=== PATIENT | male | born 1935 | race Caucasian/White ===

== ENCOUNTER 2017-11-14 14:54 | Inpatient (IN) | payer MEDICARE ==
[2017-11-14] MEDS ORDERED: SODIUM CHLORIDE 0.9% 1,000 ML IV STA ×2 (16:05)
--- NOTE | 2017-11-14 16:07 | ED ---
General Adult HPI - General Chief complaint: Dizziness Stated complaint: Lightheaded/Vomiting Time Seen by Provider: 11/14/17 15:58 Source: patient, family, RN notes reviewed, old records reviewed Mode of arrival: wheelchair Limitations: no limitations - History of Present Illness Initial comments: This is a 82-year-old male to the ER for evaluation. Patient coming in for evaluation of weakness dizziness, multiple recent falls. Patient has normal normally significant activity level, decreased activity 4 days. No new medications, patient has history of heart disease high blood pressure high cholesterol. Patient denies significant headache at this time. No fevers 2 episodes of nausea the last 2 days with vomiting, no diarrhea. No abdominal pain. No chest pain. No shortness of breath - Related Data Home Medications Medication Instructions Recorded Confirmed Aspirin 81 mg PO DAILY 11/14/17 11/14/17 Budesonide [Pulmicort Flexhaler] 2 puff INHALATION RT-HS 11/14/17 11/14/17 Carvedilol 25 mg PO BID 11/14/17 11/14/17 Hydrochlorothiazide 25 mg PO DAILY 11/14/17 11/14/17 Potassium Chloride [K-Tab ER] 20 meq PO DAILY 11/14/17 11/14/17 Pravastatin Sodium [Pravachol] 80 mg PO DAILY 11/14/17 11/14/17 Rivaroxaban [Xarelto] 20 mg PO DAILY 11/14/17 11/14/17 Tiotropium 18 Mcg/Puff [Spiriva] 1 cap INHALATION RT-DAILY 11/14/17 11/14/17 Valsartan [Diovan] 320 mg PO DAILY 11/14/17 11/14/17 amLODIPine [Norvasc] 10 mg PO DAILY 11/14/17 11/14/17 Allergies Allergy/AdvReac Type Severity Reaction Status Date / Time No Known Allergies Allergy Verified 11/14/17 16:10 Review of Systems ROS Statement: Those systems with pertinent positive or pertinent negative responses have been documented in the HPI. ROS Other: All systems not noted in ROS Statement are negative. Past Medical History Past Medical History: Hyperlipidemia, Hypertension History of Any Multi-Drug Resistant Organisms: None Reported Past Surgical History: Heart Catheterization With Stent Past Psychological History: No Psychological Hx Reported Smoking Status: Never smoker Past Alcohol Use History: None Reported Past Drug Use History: None Reported General Exam Limitations: no limitations General appearance: alert, in no apparent distress Head exam: Present: atraumatic, normocephalic, normal inspection Eye exam: Present: normal appearance, PERRL, EOMI. Absent: scleral icterus, conjunctival injection, periorbital swelling ENT exam: Present: normal exam, mucous membranes moist Neck exam: Present: normal inspection. Absent: tenderness, meningismus, lymphadenopathy Respiratory exam: Present: normal lung sounds bilaterally. Absent: respiratory distress, wheezes, rales, rhonchi, stridor Cardiovascular Exam: Present: regular rate, normal rhythm, normal heart sounds. Absent: systolic murmur, diastolic murmur, rubs, gallop, clicks GI/Abdominal exam: Present: soft, normal bowel sounds. Absent: distended, tenderness, guarding, rebound, rigid Extremities exam: Present: normal inspection, full ROM, normal capillary refill. Absent: tenderness, pedal edema, joint swelling, calf tenderness Back exam: Present: normal inspection Neurological exam: Present: alert, oriented X3, CN II-XII intact Psychiatric exam: Present: normal affect, normal mood Skin exam: Present: warm, dry, intact, normal color. Absent: rash Course Vital Signs 11/14/17 11/14/17 15:11 17:18 Temperature 99.0 F Pulse Rate 79 85 Respiratory 18 16 Rate Blood Pressure 87/39 137/63 O2 Sat by Pulse 100 97 Oximetry - Reevaluation(s) Reevaluation #1: 11/14/17 17:51 Patient denies blood in the stool, no bloody bowel movements here in emergency room, no pain Reevaluation #2: 11/14/17 17:51 Patient continues to feel weak lightheaded and dizzy EKG Findings - EKG Comments: EKG Findings:: G shows normal sinus rhythm rate of 79, CT 152, QRS 82, QTc 426 Medical Decision Making - Medical Decision Making 82 male the ER for evaluation of weakness multiple falls of recent, significant anemia, patient be admitted for transfusion - Lab Data Result diagrams: 11/14/17 16:51 11/14/17 16:51 Lab Results 11/14/17 11/14/17 11/14/17 Range/Units 16:51 16:51 16:51 WBC 6.7 (3.8-10.6) k/uL RBC 1.70 L (4.30-5.90) m/uL Hgb 4.5 L* (13.0-17.5) gm/dL Hct 14.9 L* (39.0-53.0) % MCV 87.8 (80.0-100.0) fL MCH 26.6 (25.0-35.0) pg MCHC 30.3 L (31.0-37.0) g/dL RDW 13.7 (11.5-15.5) % Plt Count 232 (150-450) k/uL Neutrophils % 82 % Lymphocytes % 12 % Monocytes % 4 % Eosinophils % 0 % Basophils % 0 % Neutrophils # 5.5 (1.3-7.7) k/uL Lymphocytes # 0.8 L (1.0-4.8) k/uL Monocytes # 0.3 (0-1.0) k/uL Eosinophils # 0.0 (0-0.7) k/uL Basophils # 0.0 (0-0.2) k/uL Hypochromasia Marked Poikilocytosis Slight PT 12.5 H (9.0-12.0) sec INR 1.3 H (<1.2) APTT 20.2 L (22.0-30.0) sec D-Dimer 0.52 (<0.60) mg/L FEU Sodium 144 (137-145) mmol/L Potassium 3.8 (3.5-5.1) mmol/L Chloride 106 (98-107) mmol/L Carbon Dioxide 27 (22-30) mmol/L Anion Gap 11 mmol/L BUN 47 H (9-20) mg/dL Creatinine 1.30 H (0.66-1.25) mg/dL Est GFR (MDRD) Af Amer >60 (>60 ml/min/1.73 sqM) Est GFR (MDRD) Non-Af 53 (>60 ml/min/1.73 sqM) Glucose 124 H (74-99) mg/dL Plasma Lactic Acid Thor (0.7-2.0) mmol/L Calcium 8.7 (8.4-10.2) mg/dL Phosphorus 3.6 (2.5-4.5) mg/dL Magnesium 2.2 (1.6-2.3) mg/dL Total Bilirubin 0.3 (0.2-1.3) mg/dL AST 20 (17-59) U/L ALT 26 (21-72) U/L Alkaline Phosphatase 48 (38-126) U/L Total Protein 6.0 L (6.3-8.2) g/dL Albumin 3.7 (3.5-5.0) g/dL 11/14/17 Range/Units 16:51 WBC (3.8-10.6) k/uL RBC (4.30-5.90) m/uL Hgb (13.0-17.5) gm/dL Hct (39.0-53.0) % MCV (80.0-100.0) fL MCH (25.0-35.0) pg MCHC (31.0-37.0) g/dL RDW (11.5-15.5) % Plt Count (150-450) k/uL Neutrophils % % Lymphocytes % % Monocytes % % Eosinophils % % Basophils % % Neutrophils # (1.3-7.7) k/uL Lymphocytes # (1.0-4.8) k/uL Monocytes # (0-1.0) k/uL Eosinophils # (0-0.7) k/uL Basophils # (0-0.2) k/uL Hypochromasia Poikilocytosis PT (9.0-12.0) sec INR (<1.2) APTT (22.0-30.0) sec D-Dimer (<0.60) mg/L FEU Sodium (137-145) mmol/L Potassium (3.5-5.1) mmol/L Chloride (98-107) mmol/L Carbon Dioxide (22-30) mmol/L Anion Gap mmol/L BUN (9-20) mg/dL Creatinine (0.66-1.25) mg/dL Est GFR (MDRD) Af Amer (>60 ml/min/1.73 sqM) Est GFR (MDRD) Non-Af (>60 ml/min/1.73 sqM) Glucose (74-99) mg/dL Plasma Lactic Acid Thor 1.6 (0.7-2.0) mmol/L Calcium (8.4-10.2) mg/dL Phosphorus (2.5-4.5) mg/dL Magnesium (1.6-2.3) mg/dL Total Bilirubin (0.2-1.3) mg/dL AST (17-59) U/L ALT (21-72) U/L Alkaline Phosphatase (38-126) U/L Total Protein (6.3-8.2) g/dL Albumin (3.5-5.0) g/dL - Radiology Data Radiology results: report reviewed (CT brain chest x-ray negative for acute disease), image reviewed Disposition Clinical Impression: Weakness, Anemia, Falls Disposition: ADMITTED IP TO THIS [facility] Condition: Fair Referrals: Mike Conde MD [Primary Care Provider] - 1-2 days
[2017-11-14 17:21] LABS: Basophils % (A) 0 %; Eosinophils % (A) 0 %; Hypochromasia Marked; Lymphocytes # (A) 0.8 k/uL (1.0-4.8); Lymphocytes % (A) 12 %; MCH 26.6 pg (25.0-35.0); MCHC 30.3 g/dL (31.0-37.0); MCV 87.8 fL (80.0-100.0); Mean Platelet Volume 7.6; Monocytes # (A) 0.3 k/uL (0-1.0); Monocytes % (A) 4 %; Neutrophils # (A) 5.5 k/uL (1.3-7.7); Neutrophils % (A) 82 %; Platelet Count 232 k/uL (150-450); Poikilocytosis Slight; RDW 13.7 % (11.5-15.5); WBC 6.7 k/uL (3.8-10.6)
[2017-11-14 17:22] LABS: HGB 4.5 gm/dL (13.0-17.5)
[2017-11-14 17:23] LABS: HCT 14.9 % (39.0-53.0)
[2017-11-14 17:26] LABS: ALT 26 U/L (21-72); AST 20 U/L (17-59); Albumin 3.7 g/dL (3.5-5.0); Alkaline Phosphatase 48 U/L (38-126); Anion Gap 11 mmol/L; Blood Urea Nitrogen 47 mg/dL (9-20); Calcium 8.7 mg/dL (8.4-10.2); Carbon Dioxide 27 mmol/L (22-30); Chloride 106 mmol/L (98-107); Glucose 124 mg/dL (74-99); Magnesium 2.2 mg/dL (1.6-2.3); Phosphorus 3.6 mg/dL (2.5-4.5); Potassium 3.8 mmol/L (3.5-5.1); Sodium 144 mmol/L (137-145); Total Bilirubin 0.3 mg/dL (0.2-1.3)
[2017-11-14 17:27] LABS: INR 1.3 (<1.2); Prothrombin Time 12.5 sec (9.0-12.0)
[2017-11-14 17:32] LABS: D-Dimer 0.52 mg/L FEU (<0.60)
[2017-11-14 17:45] LABS: Partial Thromboplastin Time 20.2 sec (22.0-30.0)
[2017-11-14 17:52] LABS: Creatine Kinase MB 1.8 ng/mL (0.0-2.4)
--- NOTE | 2017-11-14 17:53 | CT ---
EXAMINATION TYPE: CT brain damaris henry DATE OF EXAM: 11/14/2017 COMPARISON: NONE HISTORY: Weakness and frequent falls CT DLP: [address] of the brain was performed. The ventricles, basal cisterns and sulci overlying the cerebral convexities demonstrate moderate enla rgement. There is no evidence for intracranial hemorrhage or sulcal effacement. There is decreased attenuatio n about the periventricular white matter and deep white matter of both cerebral hemispheres, compatib le with chronic small vessel ischemia. No mass effects are seen. If symptoms persist consider MRI. Osseous calvarium is intact. IMPRESSION: 1. Age related atrophic and chronic small vessel ischemic change without acute intracranial process seen at this time. CT Cervical Spine: Unenhanced CT of the cervical spine was performed with bone and soft tissue window settings submitted . Coronal and sagittal reconstruction is obtained. Chronic cervical spine malalignment. Degenerative changes noted with disc space narrowing, spondylosi s and degenerative change of the cervical apophyseal joints. No evidence for acute cervical fracture . Biapical scarring. IMPRESSION: 1. No evidence for acute fracture or subluxation of the cervical spine.
[2017-11-14 17:55] LABS: Troponin I 0.45 ng/mL (0.000-0.034)
--- NOTE | 2017-11-14 18:58 | XR ---
EXAMINATION TYPE: XR chest 2V DATE OF EXAM: 11/14/2017 COMPARISON: 10/25/2012 HISTORY: Shortness of breath TECHNIQUE: Frontal and lateral views of the chest are obtained. FINDINGS: Scattered senescent parenchymal changes noted. Hyperinflation compatible with COPD. No evidence for infiltrate. No evidence for atelectasis. Heart size is stable. Mediastinal structures are stable and grossly unremarkable. No evidence for hilar prominence. Degenerative changes dorsal spine. IMPRESSION: 1. No evidence for acute pulmonary disease.
[2017-11-14] MEDS ORDERED: ACETAMINOPHEN TAB 325 MG TAB PO STA (20:06)
[2017-11-14 20:27] LABS: Appearance,Urine Clear (Clear); Bilirubin,Urine Negative (Negative); Blood,Urine Negative (Negative); Color,Urine Light Yellow; Glucose,Urine (UA) Negative (Negative); Ketones,Urine Negative (Negative); Leukocyte Esterase,Urine Negative (Negative); Nitrite,Urine Negative (Negative); Protein,Urine Negative (Negative); Specific Gravity,Urine 1.013 (1.001-1.035); Urobilinogen,Urine <2.0 mg/dL (<2.0)
[2017-11-14 21:17] VITALS: BMI 26.6
[2017-11-15] MEDS ORDERED: HALOPERIDOL LACTATE 5 MG/ML 1 ML VIAL IVP ONE
[2017-11-15] MEDS: CARVEDILOL 12.5 MG TAB PO SCH ×2 (06:06→17:10)
--- NOTE | 2017-11-15 07:39 | XR ---
EXAMINATION TYPE: XR chest 1V DATE OF EXAM: 11/15/2017 CLINICAL HISTORY: Difficulty breathing and CHF progress study. TECHNIQUE: Single AP portable frontal view of the chest is obtained. COMPARISON: Chest x-ray from one day earlier. FINDINGS: There is persisting cardiomegaly with reticular interstitial prominence bilaterally and mo re focal right medial basilar opacity. No large pleural effusion or pneumothorax is seen bilaterally. Osseous structures are demineralized. IMPRESSION: Cardiomegaly and suspected chronic parenchymal changes with developing right medial basil ar atelectasis and/or infiltrate felt present. Correlate clinically.
[2017-11-15] MEDS: IPRATROPIUM 0.5 MG/2.5 ML NEBU INHALATION SCH ×4 (08:20→19:51)
[2017-11-15] MEDS: BUDESONIDE 1 MG/2 ML NEBU INHALATION SCH ×2 (08:20→19:50)
[2017-11-15 08:39] LABS: HCT 21.8 % (39.0-53.0); Hypochromasia Moderate; MCH 28.2 pg (25.0-35.0); MCV 88.4 fL (80.0-100.0); Mean Platelet Volume 7.8; Platelet Count 184 k/uL (150-450); Poikilocytosis Moderate; RBC 2.47 m/uL (4.30-5.90); RDW 13.6 % (11.5-15.5); WBC 7.2 k/uL (3.8-10.6)
[2017-11-15 08:54] LABS: Anion Gap 12 mmol/L; Blood Urea Nitrogen 34 mg/dL (9-20); Calcium 8.5 mg/dL (8.4-10.2); Carbon Dioxide 25 mmol/L (22-30); Chloride 107 mmol/L (98-107); Glucose 145 mg/dL (74-99); Potassium 3.1 mmol/L (3.5-5.1); Sodium 144 mmol/L (137-145)
[2017-11-15] MEDS: PRAVASTATIN SODIUM 80 MG TAB PO SCH (09:55)
[2017-11-15] MEDS ORDERED: Potassium Replacement Protocol 1 EACH MISC MISCELLANE PRN (10:42)
[2017-11-15] MEDS: POTASSIUM CHLORIDE ER 20 MEQ TAB.ER PO SCH ×2 (11:17→12:18)
--- NOTE | 2017-11-15 11:24 | P.CRDCN ---
History of Present Illness Consult date: 11/15/17 Requesting physician: Joanne Humphreys Reason for Consult (text): Abnormal troponin Chief complaint: Weakness History of present illness: This is a pleasant 82-year-old gentleman with known history of coronary artery disease and prior stent placements, hypertension, hyperlipidemia , paroxysmal atrial fibrillation, on Xarelto for anticoagulation, he states that he follows with a social media specialist in the [place] area. According to the patient, in September he noted he had some black stools, decision 70s been getting progressively more and more weak. He denies any overt shortness of breath, denies having any chest discomfort. EKG on admission showed normal sinus rhythm with nonspecific ST-T wave changes. Chest x-ray did not reveal any evidence for acute pulmonary disease. Blood pressure 110/50, heart rate in the 50s, 97% on room air. Laboratory data was reviewed, white blood cell count 6.7, hemoglobin 4.5 on admission, hematocrit 14.9, platelet count 232. Patient did receive blood transfusion, hemoglobin this morning is 7. D-dimer 0.5, sodium 144, potassium 3.1, BUN 34, creatinine 1.1. Creatinine was 1.3 on admission. Mag level 2.2, troponin 0.45,influenza A and B are negative. At the time of my examination this morning, patient states he continues to feel significantly weak, tried to take a shower this morning and had to hold himself up against the wall. He also states that recently he underwent an EGD and colonoscopy at the [place] system. We will attempt to get records of this and also request a consult with GI service if okay with the primary. Past Medical History Past Medical History: Atrial Fibrillation, Hyperlipidemia, Hypertension History of Any Multi-Drug Resistant Organisms: None Reported Past Surgical History: Heart Catheterization With Stent Date of Last Stent Placement:: 2014 Past Psychological History: No Psychological Hx Reported Smoking Status: Never smoker Past Alcohol Use History: None Reported Past Drug Use History: None Reported - Past Family History Father History Unknown: Yes Mother Family Medical History: Myocardial Infarction ([place]) Brother(s) Additional Family Medical History / Comment(s): heart problems Medications and Allergies Home Medications Medication Instructions Recorded Confirmed Type Aspirin 81 mg PO DAILY 11/14/17 11/14/17 History Budesonide [Pulmicort Flexhaler] 2 puff INHALATION RT-HS 11/14/17 11/14/17 History Carvedilol 25 mg PO BID 11/14/17 11/14/17 History Hydrochlorothiazide 25 mg PO DAILY 11/14/17 11/14/17 History Potassium Chloride [K-Tab ER] 20 meq PO DAILY 11/14/17 11/14/17 History Pravastatin Sodium [Pravachol] 80 mg PO DAILY 11/14/17 11/14/17 History Rivaroxaban [Xarelto] 20 mg PO DAILY 11/14/17 11/14/17 History Tiotropium 18 Mcg/Puff [Spiriva] 1 cap INHALATION RT-DAILY 11/14/17 11/14/17 History Valsartan [Diovan] 320 mg PO DAILY 11/14/17 11/14/17 History amLODIPine [Norvasc] 10 mg PO DAILY 11/14/17 11/14/17 History Allergies Allergy/AdvReac Type Severity Reaction Status Date / Time No Known Allergies Allergy Verified 11/14/17 16:10 Physical Exam Vitals: Vital Signs Temp Pulse Pulse Resp BP BP Pulse Ox 11/15/17 09:45 97.5 F L 75 18 110/52 97 11/15/17 08:34 76 11/15/17 08:21 76 11/15/17 07:05 99.0 F 73 17 115/65 93 L 11/15/17 04:36 98.9 F 85 16 121/63 93 L 11/15/17 04:06 98.8 F 81 16 124/62 91 L 11/15/17 04:00 98.5 F 85 16 124/75 93 L 11/15/17 03:56 98.5 F 85 16 124/75 93 L 11/15/17 00:59 98.9 F 83 18 124/72 94 L 11/14/17 22:46 98.8 F 82 18 115/58 95 11/14/17 22:16 99.3 F 85 18 120/65 99 11/14/17 22:06 98.6 F 86 18 126/66 96 11/14/17 21:29 99.0 F 94 18 123/61 100 11/14/17 21:05 99.0 F 94 18 123/61 100 11/14/17 20:29 100.3 F H 85 18 134/65 11/14/17 19:59 100.1 F H 90 18 147/67 11/14/17 19:49 99.9 F H 94 18 147/65 97 11/14/17 19:04 100.1 F H 96 18 118/57 96 11/14/17 17:18 85 16 137/63 97 11/14/17 15:11 99.0 F 79 18 87/39 100 Intake and Output 11/14/17 11/15/17 11/15/17 22:59 06:59 14:59 Intake Total 310 510 550 Balance 310 510 550 Intake: IV 200 Sodium Chloride 0.9% 1, 200 000 ml @ 100 mls/hr IV . Q10H STA Rx#:[id number] Oral 240 Blood Product 310 310 310 Rc As-1 Unit 0 310 [id number] Rc Pheresis 2 As3 Unit 0 310 [id number] Rc Pheresis As-3 Unit 310 [id number] Other: Voiding Method Urinal Weight 72.575 kg 72.5 kg PHYSICAL EXAMINATION: HEENT: Head is atraumatic, normocephalic. Pupils equal, round. Neck is supple. There is no elevated jugular venous pressure. HEART EXAMINATION: Heart S1, S2 normal. No murmur or gallop heard. CHEST EXAMINATION: Lungs are clear to auscultation and precussion. No chest wall tenderness is noted on palpation or with deep breathing. ABDOMEN: Soft, nontender. Bowel sounds are heard. No organomegaly noted]. EXTREMITIES:[ 2+ peripheral pulses with no evidence of peripheral edema and no calf tenderness noted]. NEUROLOGIC [patient is awake, alert and oriented -3.] . Results 11/15/17 08:06 11/15/17 08:06 Cardiac Enzymes 11/14/17 11/14/17 Range/Units 16:51 16:51 AST 20 (17-59) U/L CK-MB (CK-2) 1.8 (0.0-2.4) ng/mL Troponin I 0.450 H* (0.000-0.034) ng/mL Coagulation 11/14/17 Range/Units 16:51 PT 12.5 H (9.0-12.0) sec APTT 20.2 L (22.0-30.0) sec CBC 11/14/17 11/15/17 Range/Units 16:51 08:06 WBC 6.7 7.2 (3.8-10.6) k/uL RBC 1.70 L 2.47 L (4.30-5.90) m/uL Hgb 4.5 L* 7.0 L* D (13.0-17.5) gm/dL Hct 14.9 L* 21.8 L (39.0-53.0) % Plt Count 232 184 (150-450) k/uL Comprehensive Metabolic Panel 11/14/17 11/15/17 Range/Units 16:51 08:06 Sodium 144 144 (137-145) mmol/L Potassium 3.8 3.1 L (3.5-5.1) mmol/L Chloride 106 107 (98-107) mmol/L Carbon Dioxide 27 25 (22-30) mmol/L BUN 47 H 34 H (9-20) mg/dL Creatinine 1.30 H 1.14 (0.66-1.25) mg/dL Glucose 124 H 145 H (74-99) mg/dL Calcium 8.7 8.5 (8.4-10.2) mg/dL AST 20 (17-59) U/L ALT 26 (21-72) U/L Alkaline Phosphatase 48 (38-126) U/L Total Protein 6.0 L (6.3-8.2) g/dL Albumin 3.7 (3.5-5.0) g/dL Current Medications Generic Name Dose Route Start Last Admin Trade Name Freq PRN Reason Stop Dose Admin Budesonide 1 mg 11/15/17 20:00 11/15/17 08:20 Pulmicort INHALATION 1 mg RT-BID RIRI Administration Carvedilol 25 mg 11/15/17 07:30 11/15/17 06:06 Coreg PO 25 mg BID-W/MEALS RIRI Administration Ipratropium Alfred 0.5 mg 11/15/17 08:00 11/15/17 08:20 Atrovent Nebulized INHALATION 0.5 mg RT-QID RIRI Administration Miscellaneous Information 1 each 11/15/17 10:42 Potassium Per Protocol MISCELLANE DAILY PRN Per Protocol Protocol Potassium Chloride 20 meq 11/15/17 11:00 K-Dur 20 PO 11/15/17 12:01 Q1HR RIRI Pravastatin Sodium 80 mg 11/15/17 09:00 11/15/17 09:55 Pravachol PO 80 mg DAILY RIRI Administration Intake and Output 11/14/17 11/15/17 11/15/17 22:59 06:59 14:59 Intake Total 310 510 550 Balance 310 510 550 Intake: IV 200 Sodium Chloride 0.9% 1, 200 000 ml @ 100 mls/hr IV . Q10H STA Rx#:[id number] Oral 240 Blood Product 310 310 310 Rc As-1 Unit 0 310 [id number] Rc Pheresis 2 As3 Unit 0 310 [id number] Rc Pheresis As-3 Unit 310 [id number] Other: Voiding Method Urinal Weight 72.575 kg 72.5 kg 11/15/17 08:06 11/15/17 08:06 EKG Interpretations (text) EKG shows normal sinus rhythm with nonspecific ST-T wave changes Assessment and Plan Plan: Assessment and plan #1 symptoms of progressive weakness, evidence of severe anemia, hemoglobin on admission 4.5, 7.0 this morning. #2 known history of coronary artery disease with prior stent placements, most recent was in 2014. Both of these procedures were done at [facility] #3 hypertension #4 hyperlipidemia #5 mild abnormality and creatinine, normalized this morning at 1.1. Be secondary to anemia. #6 abnormal troponin, patient denies any chest discomfort or shortness of breath. We will get 2 subsequent troponins. #7 paroxysmal atrial fibrillation on Xarelto for anticoagulation. Plan We will obtain an echocardiogram with Doppler study. Patient was on dual blood thinners in the form of aspirin and xarelto. Both these have been currently placed on hold. He continues to be on Coreg, pravastatin. We will obtain 2 subsequent troponins. Suggest GI workup. DNP note has been reviewed, I agree with a documented findings and plan of care. Patient was seen and examined.
--- NOTE | 2017-11-15 14:23 | P.HPIM ---
History of Present Illness 82-year-old gentleman with history of coronary artery disease atrial fibrillation on Xarelto came in with complaints of severe fatigue syncopal episode lightheadedness found to have found to be anemic with the hemoglobin of 4.1 when questioned patient the was having on and off dark stools going on since her October 19, patient additionally is found have elevated troponins although denied any chest pain denied any nausea vomiting. Patient denied any abdominal pain. Patient's baseline creatinine is unknown but his creatinine is elevated to 1.3 patient received 4 units of blood transfusion is getting IV fluids at 100 mL/h patient does not does have fever did not have any cough chest x-ray is essentially within normal limits patient does not have any UTI- like symptoms urine did not show any significant abnormality. Patient is not on anti-medics at this point of time although urine cultures and blood cultures were obtained. Review of Systems REVIEW OF SYSTEMS: CONSTITUTIONAL: As mentioned in HPI HEENT: No recent visual problems or hearing problems. Denied any sore throat. CARDIOVASCULAR: No chest pain, orthopnea, PND, no palpitations, no syncope. PULMONARY: No shortness of breath, no cough, no hemoptysis. GASTROINTESTINAL: No diarrhea, no nausea, no vomiting, no abdominal pain. Normoactive bowel sounds. NEUROLOGICAL: No headaches, no weakness, no numbness. HEMATOLOGICAL: Denies any bleeding or petechiae. GENITOURINARY: Denies any burning micturition, frequency, or urgency. MUSCULOSKELETAL/RHEUMATOLOGICAL: Denies any joint pain, swelling, or any muscle pain. ENDOCRINE: Denies any polyuria or polydipsia. The rest of the 14-point review of systems is negative. Past Medical History Past Medical History: Atrial Fibrillation, Hyperlipidemia, Hypertension History of Any Multi-Drug Resistant Organisms: None Reported Past Surgical History: Heart Catheterization With Stent Date of Last Stent Placement:: 2014 Past Psychological History: No Psychological Hx Reported Smoking Status: Never smoker Past Alcohol Use History: None Reported Past Drug Use History: None Reported - Past Family History Father History Unknown: Yes Mother Family Medical History: Myocardial Infarction ([place]) Brother(s) Additional Family Medical History / Comment(s): heart problems Medications and Allergies Home Medications Medication Instructions Recorded Confirmed Type Aspirin 81 mg PO DAILY 11/14/17 11/14/17 History Budesonide [Pulmicort Flexhaler] 2 puff INHALATION RT-HS 11/14/17 11/14/17 History Carvedilol 25 mg PO BID 11/14/17 11/14/17 History Hydrochlorothiazide 25 mg PO DAILY 11/14/17 11/14/17 History Potassium Chloride [K-Tab ER] 20 meq PO DAILY 11/14/17 11/14/17 History Pravastatin Sodium [Pravachol] 80 mg PO DAILY 11/14/17 11/14/17 History Rivaroxaban [Xarelto] 20 mg PO DAILY 11/14/17 11/14/17 History Tiotropium 18 Mcg/Puff [Spiriva] 1 cap INHALATION RT-DAILY 11/14/17 11/14/17 History Valsartan [Diovan] 320 mg PO DAILY 11/14/17 11/14/17 History amLODIPine [Norvasc] 10 mg PO DAILY 11/14/17 11/14/17 History Allergies Allergy/AdvReac Type Severity Reaction Status Date / Time No Known Allergies Allergy Verified 11/14/17 16:10 Physical Exam Vitals: Vital Signs Temp Pulse Pulse Resp BP BP Pulse Ox 11/15/17 11:20 99.1 F 75 18 124/65 98 11/15/17 11:10 98.0 F 74 76 18 117/66 117/66 97 11/15/17 09:45 97.5 F L 75 18 110/52 97 11/15/17 08:34 76 11/15/17 08:21 76 11/15/17 07:05 99.0 F 73 17 115/65 93 L 11/15/17 04:36 98.9 F 85 16 121/63 93 L 11/15/17 04:06 98.8 F 81 16 124/62 91 L 11/15/17 04:00 98.5 F 85 16 124/75 93 L 11/15/17 03:56 98.5 F 85 16 124/75 93 L 11/15/17 00:59 98.9 F 83 18 124/72 94 L 11/14/17 22:46 98.8 F 82 18 115/58 95 11/14/17 22:16 99.3 F 85 18 120/65 99 11/14/17 22:06 98.6 F 86 18 126/66 96 11/14/17 21:29 99.0 F 94 18 123/61 100 11/14/17 21:05 99.0 F 94 18 123/61 100 11/14/17 20:29 100.3 F H 85 18 134/65 11/14/17 19:59 100.1 F H 90 18 147/67 11/14/17 19:49 99.9 F H 94 18 147/65 97 11/14/17 19:04 100.1 F H 96 18 118/57 96 11/14/17 17:18 85 16 137/63 97 11/14/17 15:11 99.0 F 79 18 87/39 100 Intake and Output 11/14/17 11/15/17 11/15/17 22:59 06:59 14:59 Intake Total 310 510 550 Balance 310 510 550 Intake: IV 200 Sodium Chloride 0.9% 1, 200 000 ml @ 100 mls/hr IV . Q10H STA Rx#:[id number] Oral 240 Blood Product 310 310 310 Rc As-1 Unit 0 310 [id number] Rc As-1 Unit 0 [id number] Rc Pheresis 2 As3 Unit 0 310 [id number] Rc Pheresis As-3 Unit 310 [id number] Other: Voiding Method Urinal Weight 72.575 kg 72.5 kg PHYSICAL EXAMINATION: GENERAL: The patient is alert and oriented x3, not in any acute distress. Well developed, well nourished. HEENT: Pupils are round and equally reacting to light. EOMI. No scleral icterus. No conjunctival pallor. Normocephalic, atraumatic. No pharyngeal erythema. No thyromegaly. CARDIOVASCULAR: S1 and S2 present. No murmurs, rubs, or gallops. PULMONARY: Chest is clear to auscultation, no wheezing or crackles. ABDOMEN: Soft, nontender, nondistended, normoactive bowel sounds. No palpable organomegaly. MUSCULOSKELETAL: No joint swelling or deformity. EXTREMITIES: No cyanosis, clubbing, or pedal edema. NEUROLOGICAL: Gross neurological examination did not reveal any focal deficits. SKIN: No rashes. Results CBC & Chem 7: 11/15/17 08:06 11/15/17 08:06 Labs: Abnormal Lab Results - Last 24 Hours (Table) 11/14/17 11/14/17 11/14/17 Range/Units 16:51 16:51 16:51 RBC 1.70 L (4.30-5.90) m/uL Hgb 4.5 L* (13.0-17.5) gm/dL Hct 14.9 L* (39.0-53.0) % MCHC 30.3 L (31.0-37.0) g/dL Lymphocytes # 0.8 L (1.0-4.8) k/uL PT (9.0-12.0) sec INR (<1.2) APTT (22.0-30.0) sec Potassium (3.5-5.1) mmol/L BUN 47 H (9-20) mg/dL Creatinine 1.30 H (0.66-1.25) mg/dL Glucose 124 H (74-99) mg/dL Troponin I 0.450 H* (0.000-0.034) ng/mL Total Protein 6.0 L (6.3-8.2) g/dL Crossmatch 11/14/17 11/14/17 11/15/17 Range/Units 16:51 16:51 08:06 RBC 2.47 L (4.30-5.90) m/uL Hgb 7.0 L* D (13.0-17.5) gm/dL Hct 21.8 L (39.0-53.0) % MCHC (31.0-37.0) g/dL Lymphocytes # (1.0-4.8) k/uL PT 12.5 H (9.0-12.0) sec INR 1.3 H (<1.2) APTT 20.2 L (22.0-30.0) sec Potassium (3.5-5.1) mmol/L BUN (9-20) mg/dL Creatinine (0.66-1.25) mg/dL Glucose (74-99) mg/dL Troponin I (0.000-0.034) ng/mL Total Protein (6.3-8.2) g/dL Crossmatch See Detail 11/15/17 11/15/17 Range/Units 08:06 08:06 RBC (4.30-5.90) m/uL Hgb (13.0-17.5) gm/dL Hct (39.0-53.0) % MCHC (31.0-37.0) g/dL Lymphocytes # (1.0-4.8) k/uL PT (9.0-12.0) sec INR (<1.2) APTT (22.0-30.0) sec Potassium 3.1 L (3.5-5.1) mmol/L BUN 34 H (9-20) mg/dL Creatinine (0.66-1.25) mg/dL Glucose 145 H (74-99) mg/dL Troponin I 0.277 H* (0.000-0.034) ng/mL Total Protein (6.3-8.2) g/dL Crossmatch Microbiology - Last 24 Hours (Table) 11/14/17 20:12 Urine Culture - Preliminary Urine,Clean Catch Thrombosis Risk Factor Assmnt - Choose All That Apply Other Risk Factors: Yes Each Risk Factor Represents 3 Points: Age 75 years or older Thrombosis Risk Factor Assessment Total Risk Factor Score: 3 Thrombosis Risk Factor Assessment Level: Moderate Risk Assessment and Plan Plan: -Fatigue, syncope: Secondary to upper GI bleed most probably from peptic ulcer disease gastroneurology will be consulted. Patient does have acute on chronic GI bleed. Patient will be started on Protonix received 4 units of blood transfusion. -Non-ST elevation myocardial infarction: Type II from anemia no further intervention from cardiology perspective patient is on Coreg which will be continued echocardiogram will be obtained. -Acute renal dysfunction: Secondary to intravascular depletion from anemia upper GI bleed continue with IV fluids recheck the x-ray tomorrow. -Hyperlipidemia -History of atrial fibrillation presently rate controlled on anticoagulation which is being held presently because of GI bleed -Low-grade fever without any signs or symptoms of infection monitor without any antibiotics await the culture blood cultures and urine cultures
[2017-11-15] MEDS: PANTOPRAZOLE 40 MG/10 ML VIAL IVP SCH ×2 (15:21→20:49)
--- NOTE | 2017-11-15 16:46 | ECHOF ---
Referral Reason:abn trop MEASUREMENTS -------- HEIGHT: 165.1 cm WEIGHT: 72.1 kg BP: 117/66 RVIDd: 3.6 cm (< 3.3) IVSd: 1.2 cm (0.6 - 1.1) LVIDd: 3.9 cm (3.9 - 5.3) LVPWd: 1.1 cm (0.6 - 1.1) IVSs: 1.6 cm LVIDs: 2.4 cm LVPWs: 1.7 cm LAESV Index (A-L): 39.18 ml/m Ao Diam: 3.8 cm (2.0 - 3.7) AV Cusp: 0.8 cm (1.5 - 2.6) LA Diam: 3.8 cm (2.7 - 3.8) MV E Tom: 1.45 m/s MV DecT: 346 ms MV A Tom: 0.96 m/s MV E/A Ratio: 1.51 AV maxP.35 mmHg AV meanP.31 mmHg RAP: 5.00 mmHg RVSP: 47.75 mmHg FINDINGS -------- Sinus rhythm. This was a technically adequate study. The left ventricular size is normal. There is mild concentric left ventricular hypertrophy. Overa ll left ventricular systolic function is normal with, an EF between 55 - 60 %. The right ventricle is mildly enlarged. The right ventricular systolic function is normal. LA is moderately dilated 34-39 ml/m2 The right atrium is normal in size. Aortic valve is trileaflet and is severely thickened. There is mild aortic regurgitation. There i s moderate aortic stenosis present. Peak/mean gradient across the Aortic Valve is 42.35mmHg / 24.31 mmHg. Moderate mitral annular calcification present. Moderate mitral regurgitation is present. The pea k and mean MV gradients are 19.08mmHg 4.82mmHg as measured by doppler. Cwmm-ux-gayikolb mitral sten osis. Ixxe-hf-ahxgjfzs tricuspid regurgitation present. There is mild to moderate pulmonary hypertension. The right ventricular systolic pressure, as measured by Doppler, is 47.75mmHg. Trace/mild (physiologic) pulmonic regurgitation. The aortic root size is normal. Normal inferior vena cava with normal inspiratory collapse consistent with estimated right atrial pre ssure of 5 mmHg. There is no pericardial effusion. CONCLUSIONS -------- 1. Sinus rhythm. 2. This was a technically adequate study. 3. The left ventricular size is normal. 4. There is mild concentric left ventricular hypertrophy. 5. Overall left ventricular systolic function is normal with, an EF between 55 - 60 %. 6. The right ventricle is mildly enlarged. 7. LA is moderately dilated 34-39 ml/m2 8. Aortic valve is trileaflet and is severely thickened. 9. There is mild aortic regurgitation. 10. There is moderate aortic stenosis present. 11. Peak/mean gradient across the Aortic Valve is 42.35mmHg / 24.31mmHg. 12. Moderate mitral annular calcification present. 13. Moderate mitral regurgitation is present. 14. The peak and mean MV gradients are 19.08mmHg 4.82mmHg as measured by doppler. 15. Mxmc-ef-ndshwarv mitral stenosis. 16. Kreo-iw-asjajmqx tricuspid regurgitation present. 17. There is mild to moderate pulmonary hypertension. 18. Trace/mild (physiologic) pulmonic regurgitation. 19. The aortic root size is normal. 20. There is no pericardial effusion. SERVICE ADMINISTRATOR: Keon Morales RDCS
[2017-11-15 21:05] LABS: HCT 24.1 % (39.0-53.0); HGB 7.8 gm/dL (13.0-17.5); Hypochromasia Moderate; MCH 28.2 pg (25.0-35.0); MCHC 32.5 g/dL (31.0-37.0); MCV 86.9 fL (80.0-100.0); Mean Platelet Volume 8.2; Platelet Count 186 k/uL (150-450); Poikilocytosis Marked; RBC 2.77 m/uL (4.30-5.90); WBC 10.5 k/uL (3.8-10.6)
[2017-11-15] MEDS: ACETAMINOPHEN TAB 325 MG TAB PO PRN (23:27)
[2017-11-15] MEDS ORDERED: HALOPERIDOL LACTATE 5 MG/ML 1 ML VIAL IVP PRN (23:57)
[2017-11-16] MEDS ORDERED: ACETAMINOPHEN IV (For NPO) 1,000 MG in EMPTY BAG 1 BAG IVPB PRN (05:22)
[2017-11-16] MEDS ORDERED: FUROSEMIDE 10 MG/ML 4 ML VIAL IV STA (05:22)
[2017-11-16] MEDS ORDERED: FUROSEMIDE 10 MG/ML 4 ML VIAL ONE (05:26)
[2017-11-16 06:37] LABS: HCT 27.5 % (39.0-53.0); HGB 8.7 gm/dL (13.0-17.5); Hypochromasia Moderate; MCH 28.3 pg (25.0-35.0); MCHC 31.5 g/dL (31.0-37.0); MCV 89.8 fL (80.0-100.0); Mean Platelet Volume 8.6; Platelet Count 184 k/uL (150-450); Poikilocytosis Moderate; RBC 3.06 m/uL (4.30-5.90); RDW 14.4 % (11.5-15.5); WBC 10.5 k/uL (3.8-10.6)
[2017-11-16 06:53] LABS: Anion Gap 8 mmol/L; Blood Urea Nitrogen 25 mg/dL (9-20); Calcium 8.5 mg/dL (8.4-10.2); Carbon Dioxide 28 mmol/L (22-30); Chloride 105 mmol/L (98-107); Potassium 3.4 mmol/L (3.5-5.1); Sodium 141 mmol/L (137-145)
[2017-11-16] MEDS ORDERED: Potassium Replacement Protocol 1 EACH MISC MISCELLANE PRN (06:58)
[2017-11-16 07:00] LABS: Glucose 103 mg/dL (74-99)
--- NOTE | 2017-11-16 07:31 | XR ---
EXAMINATION TYPE: XR chest 1V DATE OF EXAM: 11/16/2017 COMPARISON: NONE INDICATION: Congestive heart failure TECHNIQUE: Single frontal view of the chest is obtained. FINDINGS: The heart size is normal. The pulmonary vasculature is normal. There is a minimal infiltrate at the cardiac apex. Correlate for atelectasis or pneumonia. Right basilar infiltrate has improved. IMPRESSION: 1. Minimal infiltrate within the lingula at the cardiac apex. Correlate for atelectasis and pneumonia .
[2017-11-16] MEDS: CARVEDILOL 12.5 MG TAB PO SCH ×2 (08:31→17:27)
[2017-11-16] MEDS: POTASSIUM CHLORIDE 10 MEQ in WATER FOR INJECTION 1 100ML.BAG IVPB SCH ×2 (08:57→12:41)
[2017-11-16] MEDS: PRAVASTATIN SODIUM 80 MG TAB PO SCH (09:04)
[2017-11-16] MEDS: BUDESONIDE 1 MG/2 ML NEBU INHALATION SCH ×2 (09:12→19:22)
[2017-11-16] MEDS: IPRATROPIUM 0.5 MG/2.5 ML NEBU INHALATION SCH ×4 (09:13→19:21)
[2017-11-16] MEDS: PANTOPRAZOLE 40 MG/10 ML VIAL IVP SCH ×2 (09:20→22:30)
--- NOTE | 2017-11-16 11:22 | CONS ---
CONSULTATION DATE OF SERVICE: 11/15/2017 REASON FOR CONSULTATION: Severe symptomatic anemia. HISTORY OF PRESENT ILLNESS: The patient is an 82-year-old male with history of coronary artery disease and A. Fib, presently on Xarelto for the last 2 years duration, was admitted to hospital because of fatigue, weakness, syncopal episode and came in to the emergency room and was noted to have a hemoglobin of 4.1 g/dL. The patient denies any obvious GI bleed. He had some dark stools, but no black tarry stools. He denies any abdominal pain. No nausea, vomiting. No rectal bleeding. He has been on Xarelto for A. Fib for the last 2 years duration. About a year ago, he stated that he had an upper endoscopy done because of anemia and it was unremarkable and this was done in [facility]. He recalls having a colonoscopy several years ago. He received 4 units of blood transfusion and the last hemoglobin was 7.5 g/dL. He denies any recent NSAID use. No prior history of peptic ulcer disease. PAST MEDICAL HISTORY: Significant for coronary artery disease, congestive heart failure, history of A. Fib, hyperlipidemia, hypertension. PAST SURGICAL HISTORY: Cardiac cath and stent placement 2 years ago. MEDICATIONS: Medications at home include aspirin, budesonide, carvedilol, hydrochlorothiazide, potassium chloride, Pravachol, Xarelto, Diovan, Norvasc, Spiriva. ALLERGIES: No known drug allergies. SOCIAL HISTORY: No smoking. No alcohol use. FAMILY HISTORY: Mother had [place]. Brother has coronary artery disease. REVIEW OF SYSTEMS: CARDIOPULMONARY: No chest pain, shortness of breath. GENITOURINARY: No dysuria or hematuria. MUSCULOSKELETAL: Unremarkable. SKIN: Unremarkable. ENDOCRINE: Unremarkable. PSYCHIATRY: Unremarkable. NEUROLOGY: Unremarkable. ENT/VISION: Unremarkable. CONSTITUTIONAL: No recent weight loss. No fever, chills or night sweats. PHYSICAL EXAMINATION: On physical examination, appears comfortable, in no apparent distress. Vital signs are stable. Blood pressure is 129/68, pulse is 76, temperature 100.7. HEENT EXAMINATION: Unremarkable. Conjunctivae pink. Sclerae anicteric. Oral cavity, no lesions. NECK: No JVD or lymph node enlargement. Chest was clear to auscultation. HEART: Regular rate and rhythm. ABDOMEN: Soft, nontender, nondistended. Bowel sounds are positive. No organomegaly. EXTREMITIES: No pedal edema. SKIN: No rashes. NEURO: Alert and oriented x3. No focal deficits. LABS: Labs at the time of admission, WBC 6.7, hemoglobin 4.5, platelets 232, MCV is normal. INR is 1.3. BUN 47, creatinine 1.30. ALT, AST, T-bilirubin and alkaline phosphatase are within normal limits. Troponin was 0.045. IMPRESSION: 1. This patient was admitted to the hospital with severe symptomatic anemia and hemoglobin of 4.5. Clinically no evidence of active ongoing bleeding. He did have some dark stool, but no evidence of melena. His hemoglobin was 4.5, received 4 units of blood transfusion and the last hemoglobin was 7.5 g/dL. 2. History of atrial fibrillation on Xarelto, presently on hold since yesterday. 3. Slightly elevated troponins. Cardiology following the patient closely. RECOMMENDATIONS: Continue to hold anticoagulants. Will proceed with GI workup including upper endoscopy and colonoscopy tomorrow. I discussed with the patient his benefits and complications and he is agreeable to it. Thank you for this consultation. MMODL / IJN: [id number] /
--- NOTE | 2017-11-16 14:51 | CDI ---
Last Revision, September 2017 Documentation Clarification Form Date: 11/16/2017 2:26:00 PM From: Trisha Burris RN, CCDS Admit Date: 11/14/2017 5:48:00 PM Patient Name: Cornelio Rodriguez Visit Number: [id number] Discharge Date: ATTENTION: The Clinical Documentation Specialists (CDI) and [facility] Coding Staff appreciate your assistance in clarifying documentation. Please respond to the clarification below the line at the bottom and electronically sign. The CDI & [facility] Coding staff will review the response and follow-up if needed. Please note: Queries are made part of the Legal Health Record. If you have any questions, please contact the author of this message via ITS. Dr. Gabi Toledo Acute renal dysfunction was documented in the H/P and further clarification is needed. History/Risk Factors: Atrial fibrillation, Hypertension Patients baseline Not noted Clinical Indicators: weakness, dizziness, decrease activity for 4 days, 2 episodes of nausea with vomiting. Current: BUN 47, CR 1.30, GFR: 53, HGB 4.5, HCT 14.9 Vital signs on admission: 87/39 79 18 99.0 Treatment: IV Fluids Monitor Labs In order to capture the severity of condition, please clarify if the condition signifies: Acute renal failure, Please specify etiology (if known): Acute kidney injury Other, please specify Unable to determine Please continue to document in your progress notes and discharge summary in order to capture severity of illness and risk of mortality. Include clinical findings that support your diagnosis. Acute renal failure Pre renal azotemia secondary to GI bleed. MTDD
[2017-11-16] MEDS ORDERED: PEG 3350-NA SULF,BICARB,CL/KCL 4,000 ML BOTTLE PO ONE (16:00)
--- NOTE | 2017-11-16 17:30 | P.PN ---
Subjective Progress Note Date: 11/16/17 This is an 82-year-old gentleman with history of coronary artery disease and prior stent placement, hypertension, hyperlipidemia and paroxysmal atrial fibrillation on Xarelto. Patient is admitted with complaints of extreme weakness and was found to be severely anemic. Patient received 4 units of blood transfusion. He is offering Xarelto. He is feeling better. GI is going to do endoscopy studies. He is not complaining of any chest pain or shortness of breath. We'll continue current medical therapy. His echo showed normal LV function Objective - Vital Signs Vital signs: Vital Signs Temp 99.5 F 11/16/17 11:15 Pulse 76 11/16/17 12:00 Resp 16 11/16/17 12:00 BP 101/59 11/16/17 11:15 Pulse Ox 94 L 11/16/17 11:15 Intake & Output 11/15/17 11/16/17 11/16/17 18:59 06:59 18:59 Intake Total 1340 240 Output Total 1350 425 Balance 1340 -1350 -185 Weight 72.5 kg Intake: Oral 720 240 Blood Product 620 Rc As-1 Unit 310 [id number] Rc As-1 Unit 310 [id number] Output: Urine 1350 425 Other: Voiding Method Urinal Toilet Urinal Urinal # Voids 2 2 - Exam GENERAL EXAM: Patient is alert and oriented and doesn't appear to be in any acute distress HEENT: Normocephalic. Normal reaction of pupils, equal size, normal range of extraocular motion. No erythema or exudates in the throat. NECK: No masses, no nuchal rigidity. CHEST: No chest wall deformity. LUNGS: Equal air entry with no crackles or wheeze. HEART: S1 and S2 normal with no audible mumurs or gallops. Regular rhythm, femorals equal on both sides.. ABDOMEN: No hepatosplenomegaly, normal bowel sounds, no guarding or rigidity. SKIN: No rashes CENTRAL NERVOUS SYSTEM: No focal deficits. EXTREMITIES: No cyanosis, clubbing or edema. - Labs CBC & Chem 7: 11/16/17 06:16 11/16/17 06:16 Labs: Abnormal Lab Results - Last 24 Hours (Table) 11/15/17 11/15/17 11/16/17 Range/Units 17:39 20:45 06:16 RBC 2.77 L 3.06 L (4.30-5.90) m/uL Hgb 7.8 L 8.7 L (13.0-17.5) gm/dL Hct 24.1 L 27.5 L (39.0-53.0) % Potassium (3.5-5.1) mmol/L BUN (9-20) mg/dL Glucose (74-99) mg/dL Troponin I 0.216 H* (0.000-0.034) ng/mL 11/16/17 Range/Units 06:16 RBC (4.30-5.90) m/uL Hgb (13.0-17.5) gm/dL Hct (39.0-53.0) % Potassium 3.4 L (3.5-5.1) mmol/L BUN 25 H (9-20) mg/dL Glucose 103 H (74-99) mg/dL Troponin I (0.000-0.034) ng/mL Microbiology - Last 24 Hours (Table) 11/14/17 20:12 Urine Culture - Final Urine,Clean Catch 11/14/17 16:51 Blood Culture - Preliminary Blood No Growth after 24 hours Assessment and Plan (1) GI bleeding Current Visit: Yes Status: Acute Code(s): K92.2 - GASTROINTESTINAL HEMORRHAGE, UNSPECIFIED SNOMED Code(s): 07357143 (2) Anemia Current Visit: Yes Status: Acute Code(s): D64.9 - ANEMIA, UNSPECIFIED SNOMED Code(s): 209640881 (3) Weakness Current Visit: Yes Status: Acute Code(s): R53.1 - WEAKNESS SNOMED Code(s) : 22305077 (4) CAD (coronary artery disease) Current Visit: Yes Status: Acute Code(s): I25.10 - ATHSCL HEART DISEASE OF [place] CORONARY ARTERY W/O ANG PCTRS SNOMED Code(s): 79657655 (5) Paroxysmal atrial fibrillation Current Visit: Yes Status: Acute Code(s): I48.0 - PAROXYSMAL ATRIAL FIBRILLATION SNOMED Code(s): 789238848 Plan: The patient seemed to mostly stable since he got the blood transfusion. No complaints of any chest pain. No respiratory distress. Waiting to have GI evaluation. Further recommendation to follow
[2017-11-17] MEDS ORDERED: PROPOFOL 10 MG/ML 20 ML VIAL IV ONE (08:37)
[2017-11-17] MEDS ORDERED: LIDOCAINE 1% INJ 10MG/ML (20 ML MDV) ONE (08:37)
[2017-11-17] MEDS ORDERED: IV FLUID CONTINUATION 1,000 ML IV ONE (08:39)
[2017-11-17] MEDS: IPRATROPIUM 0.5 MG/2.5 ML NEBU INHALATION SCH ×4 (08:46→20:23)
[2017-11-17] MEDS: BUDESONIDE 1 MG/2 ML NEBU INHALATION SCH ×2 (08:46→20:23)
--- NOTE | 2017-11-17 09:17 | P.PCN ---
Date of Procedure: 11/17/17 Procedure(s) Performed: Brief history: Patient is a pleasant 82-year-old white male, was admitted hospital with severe symptomatic anemia and a hemoglobin of 4.5 g/dL requiring 4 units of the transition. This morning hemoglobin is 8 g/dL. The patient stated that he had intermittent dark colored stools but no rectal bleeding or melena. He denies any GI symptoms. He states that he had a similar episode about 2 years ago and had upper endoscopy done it was unremarkable. He recalls having a colonoscopy about 5 years ago. Because of the severe symptomatic anemia he is scheduled for an upper endoscopy as well as colonoscopy as a part of evaluation of Procedure performed: Esophagogastroduodenoscopy with biopsy Colonoscopy with argon plasma coagulation and resolution clip placement Preoperative diagnosis: Severe symptomatic anemia with hemoglobin of 4.5 g/dL Anesthesia: MAC Procedure: After informed consent was obtained from the patient was brought into the endoscopy unit and IV sedation was administered by anesthesia under continuous monitoring. Initially upper endoscopy was done. The Olympus GF 160 video endoscope was inserted inserted into the mouth and esophagus intubated without any difficulty and was gradually advanced into the stomach and duodenum and carefully examined. The bulb and second part of the duodenum appeared normal. Biopsies were done from the duodenum to rule out celiac disease. The scope was then withdrawn into the stomach adequately insufflated with air and upon careful examination the antrum and body, cardia and fundus appeared normal. The scope was then withdrawn into the esophagus. The GE junction was located at 40 cm to the incisors. It appeared regular with a superficial erosions consistent with LA grade B reflux esophagitis.. Rest of the esophagus appeared normal. Patient tolerated the procedure well. At this time the patient continued to remain sedation. Initial digital rectal examination was normal. Olympus CF 160 video colonoscope was then inserted into the rectum and gradually advanced to the cecum without any difficulty. Careful examination was performed as the scope was gradually being withdrawn. The prep was excellent. 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 Ends the resolution clip was placed for good hemostasis. The cecum, ascending colon, transverse colon, descending colon, sigmoid colon and rectum appeared normal. Retroflexion was performed in the rectum and small internal hemorrhoids were noted. Patient tolerated the procedure well. Impression: 1. Upper endoscopy revealed LA grade B reflux esophagitis but no evidence of peptic ulcer disease. 2. 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 Rest of the colon appeared normal. Recommendations: Findings of this examination were discussed with the patient. He was advised to follow with the biopsy results. Diet will be advanced as tolerated. Hold oral anticoagulation for 2 more days.
[2017-11-17] MEDS: CARVEDILOL 12.5 MG TAB PO SCH ×2 (09:30→18:02)
[2017-11-17] MEDS: PANTOPRAZOLE 40 MG/10 ML VIAL IVP SCH ×2 (09:31→23:08)
[2017-11-17] MEDS: PRAVASTATIN SODIUM 80 MG TAB PO SCH (09:31)
--- NOTE | 2017-11-17 14:28 | P.PN ---
Subjective Progress Note Date: 11/17/17 This is an 82-year-old gentleman with history of coronary artery disease and prior stent placement, hypertension, hyperlipidemia and paroxysmal atrial fibrillation on Xarelto. Patient is admitted with complaints of extreme weakness and was found to be severely anemic. Patient received 4 units of blood transfusion. He is offering Xarelto. He is feeling better. GI is going to do endoscopy studies. He is not complaining of any chest pain or shortness of breath. We'll continue current medical therapy. His echo showed normal LV function. 11/17/2017: This patient with history of coronary artery disease was admitted with anemia and possible GI bleeding. Patient received blood transfusion. Had upper endoscopy and also colonoscopy. 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 Patient has sclerotherapy. It is advised that patient could be started on anti- cognition therapy in 2 days. His hemoglobin was 8.7. Patient is still complaints of fatigue. Otherwise patient is stable. Will increase activity. Resume anti-cognition therapy in 24 hours. Objective - Vital Signs Vital signs: Vital Signs Temp 98.6 F 11/17/17 11:39 Pulse 78 11/17/17 11:39 Resp 18 11/17/17 11:39 BP 106/63 11/17/17 11:39 Pulse Ox 98 11/17/17 11:39 Intake & Output 11/16/17 11/17/17 11/17/17 18:59 06:59 18:59 Intake Total 480 400 340 Output Total 825 525 Balance -345 400 -185 Weight 73.5 kg Intake: IV 100 Oral 480 400 240 Output: Urine 825 525 Other: Voiding Method Urinal Urinal # Voids 1 # Bowel Movements 1 - Exam GENERAL EXAM: Patient is alert and oriented and doesn't appear to be in any acute distress HEENT: Normocephalic. Normal reaction of pupils, equal size, normal range of extraocular motion. No erythema or exudates in the throat. NECK: No masses, no nuchal rigidity. CHEST: No chest wall deformity. LUNGS: Equal air entry with no crackles or wheeze. HEART: S1 and S2 normal with no audible mumurs or gallops. Regular rhythm, femorals equal on both sides.. ABDOMEN: No hepatosplenomegaly, normal bowel sounds, no guarding or rigidity. SKIN: No rashes CENTRAL NERVOUS SYSTEM: No focal deficits. EXTREMITIES: No cyanosis, clubbing or edema. - Labs CBC & Chem 7: 11/16/17 06:16 11/16/17 06:16 Labs: Microbiology - Last 24 Hours (Table) 11/14/17 16:51 Blood Culture - Preliminary Blood No Growth after 48 hours 11/14/17 20:12 Urine Culture - Final Urine,Clean Catch Assessment and Plan (1) GI bleeding Current Visit: Yes Status: Acute Code(s): K92.2 - GASTROINTESTINAL HEMORRHAGE, UNSPECIFIED SNOMED Code(s): 32247731 (2) Anemia Current Visit: Yes Status: Acute Code(s): D64.9 - ANEMIA, UNSPECIFIED SNOMED Code(s): 913430898 (3) Weakness Current Visit: Yes Status: Acute Code(s): R53.1 - WEAKNESS SNOMED Code(s) : 64239487 (4) CAD (coronary artery disease) Current Visit: Yes Status: Acute Code(s): I25.10 - ATHSCL HEART DISEASE OF [place] CORONARY ARTERY W/O ANG PCTRS SNOMED Code(s): 94910633 (5) Paroxysmal atrial fibrillation Current Visit: Yes Status: Acute Code(s): I48.0 - PAROXYSMAL ATRIAL FIBRILLATION SNOMED Code(s): 645928039 Plan: Patient is alert and oriented. Complaints of still tiredness. His hemoglobin is 8.7. Patient has sclerosing of the AV malformation by a pig caster. His anticoagulations therapy can be started on today's. Increase activity.
[2017-11-17] MEDS: ACETAMINOPHEN TAB 325 MG TAB PO PRN (23:26)
[2017-11-18] MEDS ORDERED: DILTIAZEM 125 MG in SODIUM CHLORIDE 0.9% 100 ML IV SCH (04:15)
[2017-11-18] MEDS: CARVEDILOL 12.5 MG TAB PO SCH ×2 (06:58→16:27)
[2017-11-18 07:11] LABS: Basophils % (A) 0 %; Eosinophils # (A) 0.2 k/uL (0-0.7); Eosinophils % (A) 3 %; HCT 25.3 % (39.0-53.0); HGB 7.7 gm/dL (13.0-17.5); Hypochromasia Moderate; Lymphocytes # (A) 0.8 k/uL (1.0-4.8); Lymphocytes % (A) 11 %; MCH 27.7 pg (25.0-35.0); MCHC 30.3 g/dL (31.0-37.0); MCV 91.3 fL (80.0-100.0); Monocytes # (A) 0.5 k/uL (0-1.0); Monocytes % (A) 7 %; Neutrophils # (A) 5.9 k/uL (1.3-7.7); Neutrophils % (A) 78 %; Platelet Count 176 k/uL (150-450); Poikilocytosis Slight; RBC 2.77 m/uL (4.30-5.90); RDW 14.7 % (11.5-15.5); WBC 7.6 k/uL (3.8-10.6)
[2017-11-18 07:24] LABS: Anion Gap 7 mmol/L; Blood Urea Nitrogen 21 mg/dL (9-20); Calcium 8.1 mg/dL (8.4-10.2); Carbon Dioxide 33 mmol/L (22-30); Chloride 103 mmol/L (98-107); Glucose 96 mg/dL (74-99); Potassium 3.2 mmol/L (3.5-5.1); Sodium 143 mmol/L (137-145)
[2017-11-18] MEDS: PRAVASTATIN SODIUM 80 MG TAB PO SCH (08:26)
[2017-11-18] MEDS: PANTOPRAZOLE 40 MG/10 ML VIAL IVP SCH (08:26)
[2017-11-18] MEDS ORDERED: Potassium Replacement Protocol 1 EACH MISC MISCELLANE PRN (09:23)
--- NOTE | 2017-11-18 09:45 | PN ---
PROGRESS NOTE DATE OF SERVICE: 11/18/17 Patient is an 82-year-old pleasant white male admitted to hospital with severe symptomatic anemia and hemoglobin of 4.5, requiring 4 units of blood transfusion. He underwent an upper endoscopy as well as colonoscopy by me yesterday, which revealed mild esophagitis and a cecal arteriovenous malformation with bleeding that was coagulated with argon plasma and clip placement. The patient is feeling good. He denies any symptoms. No abdominal pain. No nausea, vomiting. PHYSICAL EXAMINATION: Appears comfortable no apparent distress. VITAL SIGNS: Stable. Blood pressure is 138/69, pulse rate 75, temperature 100.1. HEENT examination unremarkable. Conjunctivae pink. Sclerae anicteric. Oral cavity no lesions. Neck no jugular venous distention or lymph node enlargement. Chest was clear to auscultation. HEART: Regular rate and rhythm. ABDOMEN: Soft. Bowel sounds are positive. No organomegaly. Extremities no pedal edema. Skin no rashes. Neuro: He is alert and oriented x3. No focal deficits. LAB: From today, WBC 7.6, hemoglobin 7.7, platelets normal. BUN 21, creatinine 0.9. IMPRESSION: 1. Severe symptomatic anemia with a hemoglobin of 4.5, status post 4 units of blood transfusion. EGD colonoscopy done yesterday showed a cecal arteriovenous malformation that was cauterized and clipped. The patient doing well. 2. Low-grade fever. 3. Elevated troponins. RECOMMENDATIONS: 1. Continue to advance diet as tolerated. 2. Hold Xarelto for another 24-48 hours. 3. Iron supplements. 4. At this time we will sign off. Please call us if needed. MMODL / IJN: [id number] /
[2017-11-18] MEDS: POTASSIUM CHLORIDE ER 20 MEQ TAB.ER PO SCH ×2 (10:10→11:19)
[2017-11-18] MEDS: IPRATROPIUM 0.5 MG/2.5 ML NEBU INHALATION SCH ×4 (10:50→19:12)
[2017-11-18] MEDS: BUDESONIDE 1 MG/2 ML NEBU INHALATION SCH ×2 (10:50→19:12)
--- NOTE | 2017-11-18 12:43 | P.PN ---
Subjective Progress Note Date: 11/18/17 Mr. Rodriguez is seen and examined today resting comfortably in bed. Last night he had an episode of atrial fibrillation with rapid ventricular response with heart rate in the 140's. Cardizem infusion was started. He converted back to sinus mechanism and the drip was stopped around 0800. Blood pressure at that time 98/56. He denies symptoms of chest pain, shortness of breath, dizziness, palpitations, nausea or vomiting. He underwent EGD/colonoscopy yesterday with Dr. Trinh which revealed evidence of mild esophagitis and AV malformation with bleeding. Anticoagulation has been held with recommendations to restart in 24- 48 hours from today with stable hemoglobin. Repeat hgb today 7.7 down from 8.7 yesterday. Potassium 3.2, cr 0.91. Denies any symptoms of bleeding, has not had a bowel movement since colonoscopy but it passing gas. Objective - Vital Signs Vital signs: Vital Signs Temp 98.6 F 11/18/17 11:20 Pulse 68 11/18/17 11:20 Resp 18 11/18/17 11:20 BP 101/58 11/18/17 11:20 Pulse Ox 94 L 11/18/17 11:20 Intake & Output 11/17/17 11/18/17 11/18/17 18:59 06:59 18:59 Intake Total 820 600 472 Output Total 525 1500 Balance 295 -900 472 Weight 73.6 kg Intake: IV 100 Intake, IV Titration 32 Amount Diltiazem 125 mg In 32 Sodium Chloride 0.9% 100 ml @ 10 MG/HR 10 mls/hr IV .[id number] [facility] Rx#: [id number] Oral 720 600 440 Output: Urine 525 1500 Other: Voiding Method Urinal # Voids 1 # Bowel Movements 1 - Exam Blood pressure 98/56 heart rate 66 afebrile this morning with fever 100.1 last eveing. GENERAL: Well-appearing, well-nourished and in no acute distress. NECK: Supple without JVD or thyromegaly. LUNGS: Breath sounds clear to auscultation bilaterally. Respiration equal and unlabored. No wheezes, rales or rhonchi. HEART: Regular rate and rhythm without murmurs, rubs or gallops. S1 and S2 heard. EXTREMITIES: Normal range of motion, no edema. No clubbing or cyanosis. Peripheral pulses intact and strong. - Labs CBC & Chem 7: 11/18/17 06:10 11/18/17 06:10 Labs: Abnormal Lab Results - Last 24 Hours (Table) 11/18/17 11/18/17 Range/Units 06:10 06:10 RBC 2.77 L (4.30-5.90) m/uL Hgb 7.7 L (13.0-17.5) gm/dL Hct 25.3 L (39.0-53.0) % MCHC 30.3 L (31.0-37.0) g/dL Lymphocytes # 0.8 L (1.0-4.8) k/uL Potassium 3.2 L (3.5-5.1) mmol/L Carbon Dioxide 33 H (22-30) mmol/L BUN 21 H (9-20) mg/dL Calcium 8.1 L (8.4-10.2) mg/dL Microbiology - Last 24 Hours (Table) 11/14/17 16:51 Blood Culture - Preliminary Blood No Growth after 72 hours Assessment and Plan Assessment: ASSESSMENT 1. GI bleeding, hgb on admission 4.5. 2. Anemia 3. Weakness 4. History of coronary artery disease 5. Paroxysmal atrial fibrillation, anticoagulation held currently 6. Hypokalemia 7. Febrile illness, unknown origin. Blood and urine cultures negative. PLAN Pt states he is feeling much better and is ready to go home. However, hgb down from 8.7 to 7.7. Will not resume anticoagulation today, repeat CBC in am. Request GI to continue to see another day to evaluate reason for hgb drop again. Check magnesium Replace potassium per protocol. Continue with coreg. Ongoing telemetry monitoring. Plan of care has been discussed with the patient as well as his son over the phone. Further recommendations based upon clinical course. Nurse Practitioner note has been reviewed, I agree with a documented findings and plan of care. Patient was seen and examined.
[2017-11-18] MEDS ORDERED: POLYETHYLENE GLYCOL 3350 17 GM POWD.PACK PO STA (15:38)
--- NOTE | 2017-11-18 16:37 | P.PN ---
Subjective Progress Note Date: 11/16/17 Principal diagnosis: Acute GI bleed 82-year-old gentleman with history of coronary artery disease atrial fibrillation on Xarelto came in with complaints of severe fatigue syncopal episode lightheadedness found to have found to be anemic with the hemoglobin of 4.1 when questioned patient the was having on and off dark stools going on since her October 19, patient additionally is found have elevated troponins although denied any chest pain denied any nausea vomiting. Patient denied any abdominal pain. Patient's baseline creatinine is unknown but his creatinine is elevated to 1.3 patient received 4 units of blood transfusion is getting IV fluids at 100 mL/h patient does not does have fever did not have any cough chest x-ray is essentially within normal limits patient does not have any UTI- like symptoms urine did not show any significant abnormality. Patient is not on anti-medics at this point of time although urine cultures and blood cultures were obtained. 11/16/2017 Patient denied any complains of chest pain or worsening shortness of breath. Hemoglobin improved to 8.7. GI is planning for colonoscopy and EGD tomorrow. Otherwise no dizziness or lightheadedness. No fever no chills. No other acute overnight issues. All other review of systems negative except the above Current medications reviewed Objective - Vital Signs Vital signs: Vital Signs Temp 99.5 F 11/16/17 11:15 Pulse 76 11/16/17 12:00 Resp 16 11/16/17 12:00 BP 101/59 11/16/17 11:15 Pulse Ox 94 L 11/16/17 11:15 Intake & Output 11/15/17 11/16/17 11/16/17 18:59 06:59 18:59 Intake Total 1340 Output Total 1350 Balance 1340 -1350 Weight 72.5 kg Intake: Oral 720 Blood Product 620 Rc As-1 Unit 310 [id number] Rc As-1 Unit 310 [id number] Output: Urine 1350 Other: Voiding Method Urinal Toilet Urinal Urinal # Voids 2 2 - Exam GENERAL: The patient is alert and oriented x3, not in any acute distress. Well developed, well nourished. HEENT: Pupils are round and equally reacting to light. EOMI. No scleral icterus. No conjunctival pallor. Normocephalic, atraumatic. No pharyngeal erythema. No thyromegaly. CARDIOVASCULAR: S1 and S2 present. No murmurs, rubs, or gallops. PULMONARY: Chest is clear to auscultation, no wheezing or crackles. ABDOMEN: Soft, nontender, nondistended, normoactive bowel sounds. No palpable organomegaly. MUSCULOSKELETAL: No joint swelling or deformity. EXTREMITIES: No cyanosis, clubbing, or pedal edema. NEUROLOGICAL: Gross neurological examination did not reveal any focal deficits. SKIN: No rashes. - Labs CBC & Chem 7: 11/18/17 06:10 11/18/17 06:10 Labs: Abnormal Lab Results - Last 24 Hours (Table) 11/15/17 11/15/17 11/16/17 Range/Units 17:39 20:45 06:16 RBC 2.77 L 3.06 L (4.30-5.90) m/uL Hgb 7.8 L 8.7 L (13.0-17.5) gm/dL Hct 24.1 L 27.5 L (39.0-53.0) % Potassium (3.5-5.1) mmol/L BUN (9-20) mg/dL Glucose (74-99) mg/dL Troponin I 0.216 H* (0.000-0.034) ng/mL 11/16/17 Range/Units 06:16 RBC (4.30-5.90) m/uL Hgb (13.0-17.5) gm/dL Hct (39.0-53.0) % Potassium 3.4 L (3.5-5.1) mmol/L BUN 25 H (9-20) mg/dL Glucose 103 H (74-99) mg/dL Troponin I (0.000-0.034) ng/mL Microbiology - Last 24 Hours (Table) 11/14/17 20:12 Urine Culture - Final Urine,Clean Catch 11/14/17 16:51 Blood Culture - Preliminary Blood No Growth after 24 hours Assessment and Plan Assessment: -Fatigue, syncope: Symptomatic anemia Secondary to upper GI bleed. gastroneurology will be consulted. Patient does have acute on chronic GI bleed. Patient will be started on Protonix received 4 units of blood transfusion. - Acute blood loss anemia -Non-ST elevation myocardial infarction: Type II from anemia no further intervention from cardiology perspective patient is on Coreg which will be continued echocardiogram will be obtained. -Acute kidney injury: Secondary to intravascular depletion from anemia upper GI bleed continue with IV fluids .. Improved. -Hyperlipidemia -History of atrial fibrillation presently rate controlled on anticoagulation which is being held presently because of GI bleed -Low-grade fever without any signs or symptoms of infection monitor without any antibiotics await the culture blood cultures and urine cultures Time with Patient: Greater than 30
--- NOTE | 2017-11-18 16:41 | P.PN ---
Subjective Progress Note Date: 11/17/17 Principal diagnosis: Acute GI bleed 82-year-old gentleman with history of coronary artery disease atrial fibrillation on Xarelto came in with complaints of severe fatigue syncopal episode lightheadedness found to have found to be anemic with the hemoglobin of 4.1 when questioned patient the was having on and off dark stools going on since her October 19, patient additionally is found have elevated troponins although denied any chest pain denied any nausea vomiting. Patient denied any abdominal pain. Patient's baseline creatinine is unknown but his creatinine is elevated to 1.3 patient received 4 units of blood transfusion is getting IV fluids at 100 mL/h patient does not does have fever did not have any cough chest x-ray is essentially within normal limits patient does not have any UTI- like symptoms urine did not show any significant abnormality. Patient is not on anti-medics at this point of time although urine cultures and blood cultures were obtained. 11/16/2017 Patient denied any complains of chest pain or worsening shortness of breath. Hemoglobin improved to 8.7. GI is planning for colonoscopy and EGD tomorrow. Otherwise no dizziness or lightheadedness. No fever no chills. No other acute overnight issues. 11/17/2017 Patient had EGD and colonoscopy today. 1. Upper endoscopy revealed LA grade B reflux esophagitis but no evidence of peptic ulcer disease. 2. 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 Rest of the colon appeared normal. All other review of systems negative except the above Current medications reviewed Objective - Vital Signs Vital signs: Vital Signs Temp 101.3 F H 11/17/17 20:00 Pulse 74 11/17/17 20:37 Resp 18 11/17/17 20:00 BP 123/58 11/17/17 20:00 Pulse Ox 94 L 11/17/17 20:25 Intake & Output 11/17/17 11/17/17 11/18/17 06:59 18:59 06:59 Intake Total 400 820 Output Total 525 750 Balance 400 295 -750 Weight 73.5 kg 73.5 kg Intake: IV 100 Oral 400 720 Output: Urine 525 750 Other: Voiding Method Urinal Urinal # Voids 1 1 # Bowel Movements 1 1 - Exam GENERAL: The patient is alert and oriented x3, not in any acute distress. Well developed, well nourished. HEENT: Pupils are round and equally reacting to light. EOMI. No scleral icterus. No conjunctival pallor. Normocephalic, atraumatic. No pharyngeal erythema. No thyromegaly. CARDIOVASCULAR: S1 and S2 present. No murmurs, rubs, or gallops. PULMONARY: Chest is clear to auscultation, no wheezing or crackles. ABDOMEN: Soft, nontender, nondistended, normoactive bowel sounds. No palpable organomegaly. MUSCULOSKELETAL: No joint swelling or deformity. EXTREMITIES: No cyanosis, clubbing, or pedal edema. NEUROLOGICAL: Gross neurological examination did not reveal any focal deficits. SKIN: No rashes. - Labs CBC & Chem 7: 11/18/17 06:10 11/18/17 06:10 Labs: Microbiology - Last 24 Hours (Table) 11/14/17 16:51 Blood Culture - Preliminary Blood No Growth after 48 hours Assessment and Plan Assessment: -Fatigue, syncope: Symptomatic anemia Secondary to lower GI bleed. Status post EGD and colonoscopy. Colonoscopy showed AV malformation.. Patient does have acute on chronic GI bleed. Status post PRBC 4 units. Monitor H&H.. - Acute blood loss anemia -Non-ST elevation myocardial infarction: Type II from anemia no further intervention from cardiology perspective patient is on Coreg which will be continued echocardiogram will be obtained. -Acute kidney injury: Secondary to intravascular depletion from anemia upper GI bleed continue with IV fluids .. Improved. -Hyperlipidemia -History of atrial fibrillation presently rate controlled on anticoagulation which is being held presently because of GI bleed -Low-grade fever on admission without any signs or symptoms of infection. Resolved now. Negative blood cultures and urine cultures Time with Patient: Greater than 30
--- NOTE | 2017-11-18 16:42 | P.PN ---
Subjective Progress Note Date: 11/18/17 Principal diagnosis: Acute GI bleed 82-year-old gentleman with history of coronary artery disease atrial fibrillation on Xarelto came in with complaints of severe fatigue syncopal episode lightheadedness found to have found to be anemic with the hemoglobin of 4.1 when questioned patient the was having on and off dark stools going on since her October 19, patient additionally is found have elevated troponins although denied any chest pain denied any nausea vomiting. Patient denied any abdominal pain. Patient's baseline creatinine is unknown but his creatinine is elevated to 1.3 patient received 4 units of blood transfusion is getting IV fluids at 100 mL/h patient does not does have fever did not have any cough chest x-ray is essentially within normal limits patient does not have any UTI- like symptoms urine did not show any significant abnormality. Patient is not on anti-medics at this point of time although urine cultures and blood cultures were obtained. 11/16/2017 Patient denied any complains of chest pain or worsening shortness of breath. Hemoglobin improved to 8.7. GI is planning for colonoscopy and EGD tomorrow. Otherwise no dizziness or lightheadedness. No fever no chills. No other acute overnight issues. 11/17/2017 Patient had EGD and colonoscopy today. 1. Upper endoscopy revealed LA grade B reflux esophagitis but no evidence of peptic ulcer disease. 2. 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 Rest of the colon appeared normal. 11/18/2017 Patient denied any bowel movement last 2 days. No nausea vomiting. Otherwise hemoglobin dropped to 7.7 today. We'll continue to monitor H&H for one more day. Continue to hold anticoagulation. GI and cardiology is following. No other acute overnight issues. patient wants to be discharged home All other review of systems negative except the above Current medications reviewed Objective - Vital Signs Vital signs: Vital Signs Temp 98.5 F 11/18/17 15:57 Pulse 68 11/18/17 15:57 Resp 18 11/18/17 15:57 BP 104/68 11/18/17 15:57 Pulse Ox 93 L 11/18/17 15:57 Intake & Output 11/17/17 11/18/17 11/18/17 18:59 06:59 18:59 Intake Total 820 600 712 Output Total 525 1500 300 Balance 295 -900 412 Weight 73.6 kg Intake: IV 100 Intake, IV Titration 32 Amount Diltiazem 125 mg In 32 Sodium Chloride 0.9% 100 ml @ 10 MG/HR 10 mls/hr IV .[id number] [facility] Rx#: [id number] Oral 720 600 680 Output: Urine 525 1500 300 Other: Voiding Method Urinal # Voids 1 # Bowel Movements 1 - Exam GENERAL: The patient is alert and oriented x3, not in any acute distress. Well developed, well nourished. HEENT: Pupils are round and equally reacting to light. EOMI. No scleral icterus. No conjunctival pallor. Normocephalic, atraumatic. No pharyngeal erythema. No thyromegaly. CARDIOVASCULAR: S1 and S2 present. No murmurs, rubs, or gallops. PULMONARY: Chest is clear to auscultation, no wheezing or crackles. ABDOMEN: Soft, nontender, nondistended, normoactive bowel sounds. No palpable organomegaly. MUSCULOSKELETAL: No joint swelling or deformity. EXTREMITIES: No cyanosis, clubbing, or pedal edema. NEUROLOGICAL: Gross neurological examination did not reveal any focal deficits. SKIN: No rashes. - Labs CBC & Chem 7: 11/18/17 06:10 11/18/17 06:10 Labs: Abnormal Lab Results - Last 24 Hours (Table) 11/18/17 11/18/17 Range/Units 06:10 06:10 RBC 2.77 L (4.30-5.90) m/uL Hgb 7.7 L (13.0-17.5) gm/dL Hct 25.3 L (39.0-53.0) % MCHC 30.3 L (31.0-37.0) g/dL Lymphocytes # 0.8 L (1.0-4.8) k/uL Potassium 3.2 L (3.5-5.1) mmol/L Carbon Dioxide 33 H (22-30) mmol/L BUN 21 H (9-20) mg/dL Calcium 8.1 L (8.4-10.2) mg/dL Microbiology - Last 24 Hours (Table) 11/14/17 16:51 Blood Culture - Preliminary Blood No Growth after 72 hours Assessment and Plan Assessment: -Fatigue, syncope: Symptomatic anemia Secondary to lower GI bleed. Status post EGD and colonoscopy. Colonoscopy showed AV malformation.. Patient does have acute on chronic GI bleed. Status post PRBC 4 units. Monitor H&H.. - Acute blood loss anemia. Hemoglobin 8.7-->7.7 -Non-ST elevation myocardial infarction: Type II from anemia no further intervention from cardiology perspective patient is on Coreg which will be continued echocardiogram will be obtained. -Acute kidney injury: Secondary to intravascular depletion from anemia upper GI bleed continue with IV fluids .. Improved. -Hyperlipidemia -History of atrial fibrillation presently rate controlled on anticoagulation which is being held presently because of GI bleed -Low-grade fever on admission without any signs or symptoms of infection. Resolved now. Negative blood cultures and urine cultures Time with Patient: Greater than 30
[2017-11-19 06:17] LABS: Basophils % (A) 0 %; Eosinophils # (A) 0.4 k/uL (0-0.7); Eosinophils % (A) 6 %; HCT 27.1 % (39.0-53.0); Hypochromasia Marked; Lymphocytes # (A) 1.1 k/uL (1.0-4.8); Lymphocytes % (A) 14 %; MCH 27.4 pg (25.0-35.0); MCHC 29.6 g/dL (31.0-37.0); MCV 92.5 fL (80.0-100.0); Mean Platelet Volume 7.8; Monocytes # (A) 0.5 k/uL (0-1.0); Monocytes % (A) 7 %; Neutrophils # (A) 5.3 k/uL (1.3-7.7); Neutrophils % (A) 71 %; Platelet Count 178 k/uL (150-450); Poikilocytosis Slight; RBC 2.93 m/uL (4.30-5.90); WBC 7.5 k/uL (3.8-10.6)
[2017-11-19 06:31] LABS: Anion Gap 8 mmol/L; Blood Urea Nitrogen 17 mg/dL (9-20); Calcium 8.6 mg/dL (8.4-10.2); Carbon Dioxide 31 mmol/L (22-30); Chloride 103 mmol/L (98-107); Glucose 90 mg/dL (74-99); Potassium 4.1 mmol/L (3.5-5.1); Sodium 142 mmol/L (137-145)
[2017-11-19] MEDS: CARVEDILOL 12.5 MG TAB PO SCH (06:50)
[2017-11-19] MEDS ORDERED: PANTOPRAZOLE 40 MG TABLET PO SCH (07:30)
[2017-11-19] MEDS: BUDESONIDE 1 MG/2 ML NEBU INHALATION SCH (08:20)
[2017-11-19] MEDS: IPRATROPIUM 0.5 MG/2.5 ML NEBU INHALATION SCH ×2 (08:20→11:32)
[2017-11-19 08:22] VITALS: RESP 16
[2017-11-19] MEDS: PRAVASTATIN SODIUM 80 MG TAB PO SCH (08:32)
[2017-11-19 11:29] VITALS: BP 125/89; PULSE 72; TEMP 98.6
--- NOTE | 2017-11-19 14:42 | P.PN ---
Subjective Progress Note Date: 11/19/17 Principal diagnosis: Anemia Mr. Rodriguez is seen and examined today resting comfortably in bed. Last night he had an episode of atrial fibrillation with rapid ventricular response with heart rate in the 140's. Cardizem infusion was started. He converted back to sinus mechanism and the drip was stopped around 0800. Blood pressure at that time 98/56. He denies symptoms of chest pain, shortness of breath, dizziness, palpitations, nausea or vomiting. He underwent EGD/colonoscopy yesterday with Dr. Trinh which revealed evidence of mild esophagitis and AV malformation with bleeding. Anticoagulation has been held with recommendations to restart in 24 hours from today with stable hemoglobin. Hemoglobin today 8.0 Objective - Vital Signs Vital signs: Vital Signs Temp 98.6 F 11/19/17 11:29 Pulse 72 11/19/17 11:29 Resp 16 11/19/17 11:29 BP 125/89 11/19/17 11:29 Pulse Ox 98 11/19/17 11:29 Intake & Output 11/18/17 11/19/17 11/19/17 18:59 06:59 18:59 Intake Total 952 120 Output Total 300 1200 900 Balance 652 -1200 -780 Weight 73.6 kg 94.3 kg Intake: Intake, IV Titration 32 Amount Diltiazem 125 mg In 32 Sodium Chloride 0.9% 100 ml @ 10 MG/HR 10 mls/hr IV .[id number] [facility] Rx#: [id number] Oral 920 120 Output: Urine 300 1200 900 Other: Voiding Method Urinal Urinal # Voids 1 # Bowel Movements 1 - Exam GENERAL EXAM: Patient is alert and oriented and doesn't appear to be in any acute distress HEENT: Normocephalic. Normal reaction of pupils, equal size, normal range of extraocular motion. No erythema or exudates in the throat. NECK: No masses, no nuchal rigidity. CHEST: No chest wall deformity. LUNGS: Equal air entry with no crackles or wheeze. HEART: S1 and S2 normal with no audible mumurs or gallops. Regular rhythm, femorals equal on both sides.. ABDOMEN: No hepatosplenomegaly, normal bowel sounds, no guarding or rigidity. SKIN: No rashes CENTRAL NERVOUS SYSTEM: No focal deficits. EXTREMITIES: No cyanosis, clubbing or edema. - Labs CBC & Chem 7: 11/19/17 05:24 11/19/17 05:24 Labs: Abnormal Lab Results - Last 24 Hours (Table) 11/19/17 11/19/17 Range/Units 05:24 05:24 RBC 2.93 L (4.30-5.90) m/uL Hgb 8.0 L (13.0-17.5) gm/dL Hct 27.1 L (39.0-53.0) % MCHC 29.6 L (31.0-37.0) g/dL Carbon Dioxide 31 H (22-30) mmol/L Microbiology - Last 24 Hours (Table) 11/14/17 16:51 Blood Culture - Preliminary Blood No Growth after 96 hours Assessment and Plan Plan: Assessment and plan #1 symptoms of progressive weakness, evidence of severe anemia, hemoglobin 8.0 this morning. #2 known history of coronary artery disease with prior stent placements, most recent was in 2014. Both of these procedures were done at [facility] #3 hypertension #4 hyperlipidemia #5 mild abnormality and creatinine, normalized this morning at 0.8. #6 abnormal troponin, patient denies any chest discomfort or shortness of breath. #7 paroxysmal atrial fibrillation on Xarelto for anticoagulation. Plan Echocardiogram with Doppler study was performed which revealed a normal left ventricular systolic function. Mild to moderate mitral stenosis, mild to moderate tricuspid regurg. Patient will be discharged home today. He's been instructed to follow-up with legal compliance officer post discharge. DNP note has been reviewed, I agree with a documented findings and plan of care. Patient was seen and examined.
[2017-11-19] MEDS ORDERED: RIVAROXABAN 15 MG TAB PO SCH (17:30)
--- NOTE | 2017-11-19 22:11 | P.DS ---
Providers Date of admission: 11/14/17 17:48 Expected date of discharge: 11/19/17 Attending physician: Joanne Humphreys Consults: 11/14/17 20:04 Consult Physician Stat Consulting Provider: [facility] Consult Reason/Comments: elevated trop Do you want consulting provider notified?: Yes 11/15/17 12:58 Consult Physician Routine Consulting Provider: Abelardo Ruiz Consult Reason/Comments: Upper GI bleed Do you want consulting provider notified?: Yes Primary care physician: Mike Conde Hospital Course: Discharge diagnosis -Fatigue, syncope: Symptomatic anemia Secondary to lower GI bleed. Status post EGD and colonoscopy. Colonoscopy showed AV malformation. Status post cauterization.. Patient does have acute on chronic GI bleed. Status post PRBC 4 units. Monitor H&H.. - Acute blood loss anemia. Hemoglobin 8.7-->7.7--8.0 -Non-ST elevation myocardial infarction: Type II from anemia no further intervention from cardiology perspective patient is on Coreg which will be continued echocardiogram will be obtained. -Acute kidney injury: Secondary to intravascular depletion from anemia upper GI bleed continue with IV fluids .. Improved. -Hyperlipidemia -History of atrial fibrillation presently rate controlled on anticoagulation which is being held presently because of GI bleed -Low-grade fever on admission without any signs or symptoms of infection. Resolved now. Negative blood cultures and urine cultures Hospital course 82-year-old gentleman with history of coronary artery disease atrial fibrillation on Xarelto came in with complaints of severe fatigue syncopal episode lightheadedness found to have found to be anemic with the hemoglobin of 4.1 when questioned patient the was having on and off dark stools going on since her October 19, patient additionally is found have elevated troponins although denied any chest pain denied any nausea vomiting. Patient denied any abdominal pain. Patient's baseline creatinine is unknown but his creatinine is elevated to 1.3 patient received 4 units of blood transfusion is getting IV fluids at 100 mL/h patient does not does have fever did not have any cough chest x-ray is essentially within normal limits patient does not have any UTI- like symptoms urine did not show any significant abnormality. Patient is not on anti-medics at this point of time although urine cultures and blood cultures were obtained. 11/16/2017 Patient denied any complains of chest pain or worsening shortness of breath. Hemoglobin improved to 8.7. GI is planning for colonoscopy and EGD tomorrow. Otherwise no dizziness or lightheadedness. No fever no chills. No other acute overnight issues. 11/17/2017 Patient had EGD and colonoscopy today. 1. Upper endoscopy revealed LA grade B reflux esophagitis but no evidence of peptic ulcer disease. 2. 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 Rest of the colon appeared normal. 11/18/2017 Patient denied any bowel movement last 2 days. No nausea vomiting. Otherwise hemoglobin dropped to 7.7 today. We'll continue to monitor H&H for one more day. Continue to hold anticoagulation. GI and cardiology is following. No other acute overnight issues. patient wants to be discharged home 11/19/2017 Patient denied any new complaints today. Hemoglobin improved to 8.0. Otherwise patient was to be discharged home. Anti-coagulation will be restarted. Discharge physical examination was done and vitals reviewed Patient Condition at Discharge: Fair Plan - Discharge Summary New Discharge Prescriptions: New Aspirin 81 mg PO DAILY #30 tab Docusate [Colace] 100 mg PO BID PRN #30 capsule PRN Reason: Constipation Sennosides [Senna] 8.6 mg PO HS PRN #30 tablet PRN Reason: Constipation Continue Tiotropium 18 Mcg/Puff [Spiriva] 1 cap INHALATION RT-DAILY Budesonide [Pulmicort Flexhaler] 2 puff INHALATION RT-HS Rivaroxaban [Xarelto] 20 mg PO DAILY Pravastatin Sodium [Pravachol] 80 mg PO DAILY Carvedilol 25 mg PO BID Discontinued Hydrochlorothiazide 25 mg PO DAILY Aspirin 81 mg PO DAILY amLODIPine [Norvasc] 10 mg PO DAILY Valsartan [Diovan] 320 mg PO DAILY Potassium Chloride [K-Tab ER] 20 meq PO DAILY Discharge Medication List Budesonide [Pulmicort Flexhaler] 2 puff INHALATION RT-HS 11/14/17 [History] Carvedilol 25 mg PO BID 11/14/17 [History] Pravastatin Sodium [Pravachol] 80 mg PO DAILY 11/14/17 [History] Rivaroxaban [Xarelto] 20 mg PO DAILY 11/14/17 [History] Tiotropium 18 Mcg/Puff [Spiriva] 1 cap INHALATION RT-DAILY 11/14/17 [History] Aspirin 81 mg PO DAILY #30 tab 11/19/17 [Rx] Docusate [Colace] 100 mg PO BID PRN #30 capsule 11/19/17 [Rx] Sennosides [Senna] 8.6 mg PO HS PRN #30 tablet 11/19/17 [Rx] Follow up Appointment(s)/Referral(s): Mike Conde MD [Primary Care Provider] - 1-2 days (Spoke to manager of warehouse. You have to call to make your own appointment.) Patient Instructions/Handouts: Anemia (DC) Discharge Disposition: HOME SELF-CARE
== END 2017-11-19 14:00 | disposition home or self-care (01) | DRG 281 ==
LOC: EC 14:54 → 6SEL 17:48
PROVIDERS: ADMIT Hospitalist; ATTEND Hospitalist
PROC: 30233N1 Transfusion of Nonautologous Red Blood Cells into Peripheral Vein, Percutaneous Approach (ICD-10-PCS; principal; 2017-11-14)
PROC: 0W3P8ZZ Control Bleeding in Gastrointestinal Tract, Via Natural or Artificial Opening Endoscopic (ICD-10-PCS; 2017-11-17 08:25)
PROC: 0DB98ZX Excision of Duodenum, Via Natural or Artificial Opening Endoscopic, Diagnostic (ICD-10-PCS; 2017-11-17 08:25)
DX: Q27.33 Arteriovenous malformation of digestive system vessel (principal); I21.A1 Myocardial infarction type 2; D62 Acute posthemorrhagic anemia; N17.9 Acute kidney failure, unspecified; I50.9 Heart failure, unspecified; I48.0 Paroxysmal atrial fibrillation; I11.0 Hypertensive heart disease with heart failure; D50.0 Iron deficiency anemia secondary to blood loss (chronic); E78.5 Hyperlipidemia, unspecified; E87.6 Hypokalemia; I25.10 Atherosclerotic heart disease of native coronary artery without angina pectoris; K21.0 Gastro-esophageal reflux disease with esophagitis; K64.8 Other hemorrhoids; R29.6 Repeated falls; Z79.01 Long term (current) use of anticoagulants; Z79.82 Long term (current) use of aspirin; Z79.899 Other long term (current) drug therapy; Z82.49 Family history of ischemic heart disease and other diseases of the circulatory system; Z95.5 Presence of coronary angioplasty implant and graft
CPT/HCPCS: 36415; 43239; 45382; 45388; 70450; 71045; 71046; 72125; 80048; 80053; 81003; 82550; 82553; 83605; 83735; 84100; 84484; 85025; 85027; 85379; 85610; 85730; 86850; 86900; 86901; 86920; 87040; 87086; 87502; 88305; 93005; 93306; 94640; 94760; 96360; 96361; 99285

== ENCOUNTER 2020-11-14 21:05 | Inpatient (IN) | payer MEDICARE ==
[2020-11-14 21:34] LABS: Glucose,Whole Blood 157 mg/dL (75-99)
--- NOTE | 2020-11-14 21:34 | ED ---
Altered Mental Status HPI - General Chief Complaint: Altered Mental Status Stated Complaint: altered mental status Time Seen by Provider: 11/14/20 21:09 Source: family, EMS Mode of arrival: EMS Limitations: altered mental status - History of Present Illness Initial Comments: This is an 85-year-old male with a history of hypertension, hyperlipidemia who p resents emergent department for confusion. Per the son at bedside the patient has been gradually getting more and more confused over the last 6 months to a year. He's been having episodes. Will talk about nonsense and stated that he seeing things. He had episodes like this earlier today and then they son found him sitting out in the car without a turn on. Unsure how long exactly he's been out there. He states that he was not acting himself so he was brought to the emergency department. The son states that he's had no recent trauma. No recent medication changes. Has not had any fevers or chills. No cough. Patient is not been complaining of anything. He does have a right inguinal hernia that is supposed to be repaired however this has not been causing him any problems. Patient is oriented to himself however does not know where he has. Does not contribute much to the history however does not have any complaints. - Related Data Home Medications Medication Instructions Recorded Confirmed Budesonide [Pulmicort Flexhaler] 2 puff INHALATION RT-HS 11/14/17 11/14/17 Pravastatin Sodium [Pravachol] 80 mg PO DAILY 11/14/17 11/14/17 Rivaroxaban [Xarelto] 20 mg PO DAILY 11/14/17 11/14/17 Tiotropium 18 Mcg/Puff [Spiriva] 1 cap INHALATION RT-DAILY 11/14/17 11/14/17 carvediloL [Carvedilol] 25 mg PO BID 11/14/17 11/14/17 Previous Rx's Medication Instructions Recorded Aspirin 81 mg PO DAILY #30 tab 11/19/17 Docusate [Colace] 100 mg PO BID PRN #30 capsule 11/19/17 Sennosides [Senna] 8.6 mg PO HS PRN #30 tablet 11/19/17 Allergies Allergy/AdvReac Type Severity Reaction Status Date / Time No Known Allergies Allergy Verified 11/14/17 16:10 Review of Systems ROS Statement: Those systems with pertinent positive or pertinent negative responses have been documented in the HPI. ROS Other: All systems not noted in ROS Statement are negative. Past Medical History Past Medical History: Atrial Fibrillation, Hyperlipidemia, Hypertension History of Any Multi-Drug Resistant Organisms: None Reported Past Surgical History: Heart Catheterization With Stent Date of Last Stent Placement:: 2014 Past Psychological History: No Psychological Hx Reported Smoking Status: Never smoker Past Alcohol Use History: Rare Past Drug Use History: None Reported - Past Family History Father History Unknown: Yes Mother Family Medical History: Myocardial Infarction ([place]) Brother(s) Additional Family Medical History / Comment(s): heart problems General Exam - General Exam Comments Initial Comments: Constitutional: [Awake alert] [Appears comfortable] Head: [Normocephalic atraumatic] , dried blood on right ear Eyes: [no conjunctival injection] [No scleral icterus] [EOMI] Neck: [No JVD] [Supple], No neck Tenderness Heart: [Regular rate rhythm] [normal S1-S2] [no murmurs] Lungs: [Clear to auscultation bilaterally] [No wheezing] [No rales] Abdomen: [Soft] [nondistended] [nontender], R flank with some mild ecchymosis that appears at least 2 days old. No pain here. Extremities: [Non edematous] [DP pulses intact] [Radial pulses intact] Neuro:Oriented to person, 5 out of 5 strength in upper and lower extremities bilaterally, cranial nerves II through XII are grossly intact, pupils are 4 mm and reactive bilaterally [No focal neurologic deficits] Psych: [Appropriate mood and affect] Limitations: altered mental status Course Vital Signs 11/14/20 11/14/20 11/14/20 21:17 21:29 22:18 Temperature 91.6 F L Pulse Rate 60 Respiratory 18 Rate Blood Pressure 141/119 120/65 O2 Sat by Pulse 99 Oximetry 11/14/20 22:45 Temperature 94.5 F L Pulse Rate 67 Respiratory 17 Rate Blood Pressure 96/57 O2 Sat by Pulse 97 Oximetry - Reevaluation(s) Reevaluation #1: Pt with some continued tremors at bedside that son states is new. The patient will wake up and answer some questions however does have some confused speech that the son states is definitely different than yesterday and seems much worse than normal. Pt mildly dehydrated however no other findings on lab work showing obvious reason for encephalopathy. I asked about urinary incontinence and f requent falls however son denied this. 11/14/20 23:23 Medical Decision Making - Medical Decision Making Is an 85-year-old male who presents emergency department for mental status changes. The patient did not injury much the history however had no complaints on arrival. Patient was a little bit tremulous and seemed to be shivering. He was placed on a bear hugger with improvement in this. Patient had no findings on CT or chest x-ray. Urinalysis was unremarkable. The patient did seem to have an acute kidney injury and same mild dehydration. Hemoglobin was 11 which seems to be hemoconcentrated when compared to previous. Patient was given 500 mL bolus and started on maintenance fluids. The son was concerned because the patient seemed to be much different than he was previously. This may be early dementia changes however the son states that the mental status changes seem to be a little bit more acute this evening that some going to keep him overnight for IV hydration and monitoring. He may require further workup tomorrow if s ymptoms persist. The patient was updated on plan for admission and the son also agreed with plan of care. Dr. Ruiz except see admission. - Lab Data Result diagrams: 11/14/20 21:30 11/14/20 21:30 Lab Results 11/14/20 11/14/20 11/14/20 Range/Units 21:30 21:30 21:30 WBC 9.2 (3.8-10.6) k/uL RBC 3.54 L (4.30-5.90) m/uL Hgb 11.8 L (13.0-17.5) gm/dL Hct 34.3 L (39.0-53.0) % MCV 96.8 (80.0-100.0) fL MCH 33.3 (25.0-35.0) pg MCHC 34.4 (31.0-37.0) g/dL RDW 12.8 (11.5-15.5) % Plt Count 202 (150-450) k/uL MPV 8.1 Neutrophils % 77 % Lymphocytes % 15 % Monocytes % 5 % Eosinophils % 2 % Basophils % 0 % Neutrophils # 7.1 (1.3-7.7) k/uL Lymphocytes # 1.4 (1.0-4.8) k/uL Monocytes # 0.5 (0-1.0) k/uL Eosinophils # 0.2 (0-0.7) k/uL Basophils # 0.0 (0-0.2) k/uL PT 12.6 H (9.0-12.0) sec INR 1.2 H (<1.2) APTT 23.3 (22.0-30.0) sec Sodium 142 (137-145) mmol/L Potassium 4.7 (3.5-5.1) mmol/L Chloride 106 (98-107) mmol/L Carbon Dioxide 27 (22-30) mmol/L Anion Gap 9 mmol/L BUN 53 H (9-20) mg/dL Creatinine 1.28 H (0.66-1.25) mg/dL Est GFR (CKD-EPI)AfAm 58 (>60 ml/min/1.73 sqM) Est GFR (CKD-EPI)NonAf 50 (>60 ml/min/1.73 sqM) Glucose 134 H (74-99) mg/dL POC Glucose (mg/dL) (75-99) mg/dL POC Glu Restaurant Manager ID Calcium 9.6 (8.4-10.2) mg/dL Total Bilirubin 0.6 (0.2-1.3) mg/dL AST 43 (17-59) U/L ALT 26 (4-49) U/L Alkaline Phosphatase 82 (38-126) U/L Total Protein 7.4 (6.3-8.2) g/dL Albumin 4.5 (3.5-5.0) g/dL Urine Color Urine Appearance (Clear) Urine pH (5.0-8.0) Ur Specific [place] (1.001-1.035) Urine Protein (Negative) Urine Glucose (UA) (Negative) Urine Ketones (Negative) Urine Blood (Negative) Urine Nitrite (Negative) Urine Bilirubin (Negative) Urine Urobilinogen (<2.0) mg/dL Ur Leukocyte Esterase (Negative) Urine RBC (0-5) /hpf Urine WBC (0-5) /hpf Hyaline Casts (0-2) /lpf 11/14/20 11/14/20 Range/Units 21:33 22:18 WBC (3.8-10.6) k/uL RBC (4.30-5.90) m/uL Hgb (13.0-17.5) gm/dL Hct (39.0-53.0) % MCV (80.0-100.0) fL MCH (25.0-35.0) pg MCHC (31.0-37.0) g/dL RDW (11.5-15.5) % Plt Count (150-450) k/uL MPV Neutrophils % % Lymphocytes % % Monocytes % % Eosinophils % % Basophils % % Neutrophils # (1.3-7.7) k/uL Lymphocytes # (1.0-4.8) k/uL Monocytes # (0-1.0) k/uL Eosinophils # (0-0.7) k/uL Basophils # (0-0.2) k/uL PT (9.0-12.0) sec INR (<1.2) APTT (22.0-30.0) sec Sodium (137-145) mmol/L Potassium (3.5-5.1) mmol/L Chloride (98-107) mmol/L Carbon Dioxide (22-30) mmol/L Anion Gap mmol/L BUN (9-20) mg/dL Creatinine (0.66-1.25) mg/dL Est GFR (CKD-EPI)AfAm (>60 ml/min/1.73 sqM) Est GFR (CKD-EPI)NonAf (>60 ml/min/1.73 sqM) Glucose (74-99) mg/dL POC Glucose (mg/dL) 157 H (75-99) mg/dL POC Glu Restaurant Manager ID Kaela Whelan Calcium (8.4-10.2) mg/dL Total Bilirubin (0.2-1.3) mg/dL AST (17-59) U/L ALT (4-49) U/L Alkaline Phosphatase (38-126) U/L Total Protein (6.3-8.2) g/dL Albumin (3.5-5.0) g/dL Urine Color Yellow Urine Appearance Clear (Clear) Urine pH 5.5 (5.0-8.0) Ur Specific [place] 1.021 (1.001-1.035) Urine Protein 1+ H (Negative) Urine Glucose (UA) Trace H (Negative) Urine Ketones Negative (Negative) Urine Blood Negative (Negative) Urine Nitrite Negative (Negative) Urine Bilirubin Negative (Negative) Urine Urobilinogen <2.0 (<2.0) mg/dL Ur Leukocyte Esterase Negative (Negative) Urine RBC <1 (0-5) /hpf Urine WBC <1 (0-5) /hpf Hyaline Casts 1 (0-2) /lpf Disposition Clinical Impression: Encephalopathy Disposition: ADMITTED IP TO THIS [facility] Condition: Stable Instructions (If sedation given, give patient instructions): Dementia (ED), Altered Mental Status (ED) Is patient prescribed a controlled substance at d/c from ED?: No Referrals: Mike Conde MD [Primary Care Provider] - 1-2 days
[2020-11-14 21:38] LABS: Basophils % (A) 0 %; Eosinophils # (A) 0.2 k/uL (0-0.7); Eosinophils % (A) 2 %; HCT 34.3 % (39.0-53.0); HGB 11.8 gm/dL (13.0-17.5); Lymphocytes # (A) 1.4 k/uL (1.0-4.8); Lymphocytes % (A) 15 %; MCH 33.3 pg (25.0-35.0); MCHC 34.4 g/dL (31.0-37.0); MCV 96.8 fL (80.0-100.0); Mean Platelet Volume 8.1; Monocytes # (A) 0.5 k/uL (0-1.0); Monocytes % (A) 5 %; Neutrophils # (A) 7.1 k/uL (1.3-7.7); Neutrophils % (A) 77 %; Platelet Count 202 k/uL (150-450); RBC 3.54 m/uL (4.30-5.90); RDW 12.8 % (11.5-15.5); WBC 9.2 k/uL (3.8-10.6)
[2020-11-14 21:47] LABS: Albumin 4.5 g/dL (3.5-5.0); Calcium 9.6 mg/dL (8.4-10.2); Potassium 4.7 mmol/L (3.5-5.1); Total Bilirubin 0.6 mg/dL (0.2-1.3); Total Protein 7.4 g/dL (6.3-8.2)
[2020-11-14 21:49] LABS: INR 1.2 (<1.2); Partial Thromboplastin Time 23.3 sec (22.0-30.0); Prothrombin Time 12.6 sec (9.0-12.0)
--- NOTE | 2020-11-14 21:59 | XR ---
EXAMINATION TYPE: XR chest 2V DATE OF EXAM: 11/14/2020 COMPARISON: 11/16/2017 HISTORY: Altered mental status TECHNIQUE: Single view FINDINGS: There is no heart failure nor confluent pneumonic infiltrate. Costophrenic angles are clear . Thoracic aorta is atheromatous. There are chest leads. IMPRESSION: No active cardiopulmonary disease. No change.
--- NOTE | 2020-11-14 22:13 | CT ---
EXAMINATION TYPE: CT brain wo con DATE OF EXAM: 11/14/2020 COMPARISON: 11/14/2017 HISTORY: Altered mental status. CT DLP: 1082.4 mGycm Automated exposure control for dose reduction was used. There is cerebral atrophy. There is no mass effect nor midline shift. There is no sign of intracrania l hemorrhage. There is some enlargement of the ventricles. Calvarium is intact. IMPRESSION: Cerebral atrophy. Mild hydrocephalus without sign of obstruction. No acute intracranial abnormality. No adverse change compared to old exam.
[2020-11-14 22:22] LABS: Appearance,Urine Clear (Clear); Bilirubin,Urine Negative (Negative); Blood,Urine Negative (Negative); Color,Urine Yellow; Glucose,Urine (UA) Trace (Negative); Hyaline Casts,Urine 1 /lpf (0-2); Ketones,Urine Negative (Negative); Leukocyte Esterase,Urine Negative (Negative); Nitrite,Urine Negative (Negative); PH, Urine 5.5 (5.0-8.0); Protein,Urine 1+ (Negative); RBC,Urine <1 /hpf (0-5); Specific Gravity,Urine 1.021 (1.001-1.035); Urobilinogen,Urine <2.0 mg/dL (<2.0); WBC,Urine <1 /hpf (0-5)
[2020-11-14] MEDS ORDERED: SODIUM CHLORIDE 0.9% 500 ML 500 ML IV ONE (22:24)
[2020-11-14] MEDS ORDERED: NALOXONE 0.4 MG/ML 1 ML VIAL IV PRN (23:27)
[2020-11-14] MEDS ORDERED: ACETAMINOPHEN TAB 325 MG TAB PO PRN (23:27)
[2020-11-15] MEDS: SODIUM CHLORIDE 0.9% 1,000 ML IV SCH ×3 (01:59→22:48)
--- NOTE | 2020-11-15 16:02 | HP ---
HISTORY AND PHYSICAL DATE OF SERVICE: 11/15/2020. CHIEF COMPLAINT: Change in mental status. HISTORY OF PRESENT ILLNESS: This 85-year-old gentleman with a past medical history of multiple medical problems including atrial fibrillation, hypertension, hyperlipidemia, CAD and stent was living with family and apparently the family found the patient confused in sitting in the car outside with cold and shaking. The confusion was on and off for the last 6 months. The patient had blisters on the fingers, indicating possibly early frostbite. The patient hypothermic at 91 degrees. The patient admitted for further evaluation and treatment with Chidi Atwood. The patient is still confused. There is no history of any fever, rigors. No history of headache, loss of consciousness, or seizures at this time. The patient is unable to give a detailed history, most is taken from my discussion with staff and review of chart at this point PAST MEDICAL HISTORY: Past medical history of atrial fibrillation, hypertension, hyperlipidemia, history of CAD, stent. HOME MEDICATIONS: 1. Coreg. 2. Norvasc. 3. Vitamin E. 4. Spiriva. 5. Xarelto. 6. Pravachol. 7. MiraLAX. 8. Losartan. 9. Xalatan. 10.Vitamin D2. 11.Colace. 12.Pulmicort. 13.Alphagan. 14.Aspirin. Doses are reviewed. ALLERGIES: None. FAMILY HISTORY: History of myocardial infarction and tuberculosis. SOCIAL HISTORY: No history of smoking. No history of alcohol intake. REVIEW OF SYSTEMS: Could not be taken at length because of patient's confusion. PHYSICAL EXAMINATION: The patient is conscious, confused. Pulse 74, blood pressure 131/68, respiration 17, temperature 97.8, pulse ox 95% on room air. HEENT: Conjunctivae normal. Oral mucosa moist. NECK: No jugular venous distention. No carotid bruit. No lymph node enlargement. CARDIOVASCULAR: S1, S2 muffled. No S3, no S4. RESPIRATORY: Breath sounds diminished at the bases. A few rhonchi, no crackles. ABDOMEN: Soft, nontender. No mass palpable. LEGS: No edema, no swelling. NERVOUS SYSTEM: Higher functions as mentioned earlier. Moves all 4 limbs. No focal motor or sensory deficits. LYMPHATICS: No lymphadenopathy of the neck, axillae or groin. SKIN: Blisters in terminal fingers present. LABS: WBC 9.2, hemoglobin 11.8. INR 1.2. Creatinine is 1.28. COVID-[address] of the brain which was reviewed personally by me showed cerebral atrophy, mild hydrocephalus. ASSESSMENT: 1. Change in mental status, possible metabolic encephalopathy. 2. Possible dementia with behavioral changes. 3. History of atrial fibrillation. 4. Hypertension. 5. Hyperlipidemia. 6. Hypothermia and possible early frostbite. 7. History of coronary artery disease, stent. 8. FULL CODE. RECOMMENDATIONS AND DISCUSSION: In this 85-year-old gentleman who presented with multiple complex medical issues also. Recommend to continue current medications. Continue symptomatic treatment. PT/OT evaluation. Resume the home medications. Avoid any possible infections and we will also obtain Neurology consultation. Continue to monitor. Further recommendations to follow. See orders for details. There is no or evidence of infection at this time. Further recommendations to follow. MMBRINDAL / IJN: [id number] / MTDD
[2020-11-16] MEDS: SODIUM CHLORIDE 0.9% 1,000 ML IV SCH ×3 (08:40→21:37)
[2020-11-16 09:35] LABS: Basophils # (A) 0.03 X 10*3/uL (0.00-0.10); Basophils % (A) 0.5 %; Eosinophils # (A) 0.37 X 10*3/uL (0.04-0.35); Eosinophils % (A) 6.2 %; HCT 25.6 % (39.6-50.0); HGB 8.4 g/dL (13.0-17.0); Lymphocytes # (A) 1.75 X 10*3/uL (0.90-5.00); Lymphocytes % (A) 29.2 %; MCH 32.7 pg (27.0-32.0); MCHC 32.8 g/dL (32.0-37.0); MCV 99.6 fL (80.0-97.0); Monocytes # (A) 0.54 X 10*3/uL (0.20-1.00); Neutrophils # (A) 3.29 X 10*3/uL (1.80-7.70); Neutrophils % (A) 54.9 %; Platelet Count 142 X 10*3/uL (140-440); RBC 2.57 X 10*6/uL (4.40-5.60); RDW 13.2 % (11.5-14.5); WBC 5.99 X 10*3/uL (4.50-10.00)
[2020-11-16 09:54] LABS: African American GFR (CKD) 88.7 (60.0-200.0); Anion Gap 4.9 mmol/L (4.00-12.00); BUN/Creat Ratio 34.44 Ratio (12.00-20.00); Calcium 8.2 mg/dL (8.7-10.3); Carbon Dioxide 27.1 mmol/L (21.6-31.8); Non-African American GFR(CKD) 76.5 (60.0-200.0); Potassium 3.6 mmol/L (3.5-5.5)
--- NOTE | 2020-11-16 12:48 | P.CNNES ---
History of Present Illness Consult date: 11/16/20 Requesting physician: Herve E Genoveva Reason for Consult: Altered mental status History of Present Illness: Patient is a 85-year-old male with history of hypertension, hyperlipidemia, who came to the hospital by ambulance on 11/14/2020 at 8 PM for confusion. He has been getting more confused over the past 6 months to a year. Patient not able to provide any history. Patient states that he came for something else. Patient starts talking tangential, speaking about his grandson, teacher and that he is in cross-country. Patient continues to refer about his , who has . On asking where he is, [place]. Patient did realize that he was not answering appropriately states " looks like I goofed up with the first question". He is very hard of hearing. Per EMS flow sheet it was reported that patient was sitting in a vehicle with new onset of altered mental status. Patient was alert and oriented 1. It was reported the patient is normally able to answer questions appropriately and at this time was unable to. Family states that they went to grab something out of their vehicle and noticed the patient sitting in the crude oil driver's seat not acting appropriately. Family state they noted an onset of tremor which is new. Patient's blood glucose at the scene was 176 blood pressure 160/73, pulse rate 64, respirations 16 and saturation 99. Vital signs on arrival blood pressure 141/119, pulse rate 60, temperature 91.6. It improved to 94.5 and then 98.2. Chest x-ray showed no acute cardiopulmonary disease. CT of the head showed cerebral atrophy. Mild hydrocephalus without sign of obstruction. No acute intracranial abnormality. On my review, it appears there is also significant generalized cortical atrophy, probably involving the frontal and temporal lobes, with associated prominence of the ventricular system. Review of Systems Denies headache. Very hard of hearing. Denies any abdominal pain nausea vomiting diarrhea. Denies any double vision, loss of vision. Denies any chest pain, shortness of breath, wheezing or cough. Denies loss of control of urine. Has some arthritis. All other review of systems reviewed and noncontributory. Past Medical History Past Medical History: Atrial Fibrillation, Hyperlipidemia, Hypertension History of Any Multi-Drug Resistant Organisms: None Reported Past Surgical History: Heart Catheterization With Stent Additional Past Surgical History / Comment(s): nasal surgery as a young adult, per son Past Anesthesia/Blood Transfusion Reactions: No Reported Reaction Date of Last Stent Placement:: 2014 Past Psychological History: No Psychological Hx Reported Smoking Status: Never smoker Past Alcohol Use History: Rare Past Drug Use History: None Reported - Past Family History Father History Unknown: Yes Additional Family Medical History / Comment(s): of TB Mother Family Medical History: Myocardial Infarction ([place]) Brother(s) Additional Family Medical History / Comment(s): heart problems Medications and Allergies Home Medications Medication Instructions Recorded Confirmed Type Budesonide [Pulmicort Flexhaler] 1 puff INHALATION RT-BID 11/14/17 11/15/20 History Pravastatin Sodium [Pravachol] 80 mg PO HS 11/14/17 11/15/20 History Rivaroxaban [Xarelto] 20 mg PO DAILY 11/14/17 11/15/20 History Tiotropium 18 Mcg/Puff [Spiriva] 1 cap INHALATION RT-DAILY 11/14/17 11/15/20 History carvediloL [Carvedilol] 25 mg PO BID 11/14/17 11/15/20 History Aspirin 81 mg PO DAILY #30 tab 11/19/17 11/15/20 Rx Brimonidine Tartrate [Alphagan P 1 drops BOTH EYES DAILY 11/15/20 11/15/20 History 0.2% Ophth Soln] Docusate [Colace] 100 mg PO DAILY 11/15/20 11/15/20 History Ergocalciferol (Vitamin D2) 50 mcg PO DAILY 11/15/20 11/15/20 History [Vitamin D2 (2000 Iu)] Latanoprost [Xalatan 0.005%] 1 drop BOTH EYES HS 11/15/20 11/15/20 History Losartan Potassium 50 mg PO BID 11/15/20 11/15/20 History Polyethylene Glycol 3350 [Miralax] 17 gm PO DAILY PRN 11/15/20 11/15/20 History Vitamin E 400 unit PO DAILY 11/15/20 11/15/20 History amLODIPine [Norvasc] 10 mg PO DAILY 11/15/20 11/15/20 History Allergies Allergy/AdvReac Type Severity Reaction Status Date / Time No Known Allergies Allergy Verified 11/15/20 10:05 Physical Examination - Vital Signs Vital Signs: Vital Signs Temp Pulse Resp BP Pulse Ox 11/16/20 04:56 98.3 F 67 16 148/66 97 11/15/20 20:00 98.8 F 68 16 129/69 92 L 11/15/20 11:51 97.8 F 74 17 131/68 95 Intake and Output 11/15/20 11/16/20 11/16/20 22:59 06:59 14:59 Intake Total 360 1320 Balance 360 1320 Intake: Intake, IV Titration 1200 Amount Sodium Chloride 0.9% 1, 1200 000 ml @ 100 mls/hr IV . Q10H [facility] Rx#:[id number] Oral 360 120 Other: # Voids 2 1 On examination patient is an elderly male, very pleasant, in no acute distress. He is alert and awake. Patient has very slow mentation, hard of hearing. Patient initially appeared to answer tangential, random, not making sense. However on repeated questioning, he was able to tell that it is November and the year is 2020 [address] he [address] in [facility]. He states that he is from [place]. Patient states that he lives with his son. Speech appears mildly dysarthric but no aphasia. Patient can name and repeat well. On cranial examination pupils are round and reacting, visual caro are full, extraocular muscles are intact, face is symmetric (weakness of left forehead wrinkling pro bably from some procedure), tongue protrudes to the midline. Palatal elevation and sensation normal. Hearing is decreased, shoulder shrug normal. On muscle strength testing there is no pronator drift and the strength is normal in arms and legs reflexes are 1+ and plantars downgoing. No ataxia for [id number] testing, tone was significantly increased immediately but after repeated instruction, appears to be normal to mildly increased. Sensations are equal with no neglect. Patient has blisters over the fingertips from frostbite. Also has some blackish area in the pinna of the right ear from frostbite. Feet appears fine. No peripheral edema. Peripheral pulses present. Chest is clear, abdomen soft nontender. Results - Laboratory Findings CBC and BMP: 11/16/20 04:38 11/16/20 04:38 Abnormal Lab Findings: Abnormal Labs 11/14/20 11/14/20 11/14/20 21:30 21:30 21:30 RBC 3.54 L Hgb 11.8 L Hct 34.3 L MCV MCH Eosinophils # PT 12.6 H INR 1.2 H BUN 53 H Creatinine 1.28 H Glucose 134 H POC Glucose (mg/dL) Urine Protein Urine Glucose (UA) 11/14/20 11/14/20 11/16/20 21:33 22:18 04:38 RBC 2.57 L Hgb 8.4 L Hct 25.6 L MCV 99.6 H MCH 32.7 H Eosinophils # 0.37 H PT INR BUN Creatinine Glucose POC Glucose (mg/dL) 157 H Urine Protein 1+ H Urine Glucose (UA) Trace H Assessment and Plan Assessment: * 85-year-old male brought to the hospital after he was found sitting outside in car in cold weather for an hour, with frostbite involving his fingertips, and the right ear. Exact cause is uncertain, rule out delirium, partial seizure or encephalopathy. CT scan of the head showed prominence of ventricles, with generalized cerebral atrophy particularly involving the frontal and temporal lobes. Rule out NPH. Rule out underlying dementia * Atrial fibrillation, currently on Xarelto and aspirin 81 mg. * Elevated cardiac enzymes * Anemia, worse today with hemoglobin 8.4 * Hypertension Plan: * Carotid Doppler rule out stenosis * EEG to rule out any epileptiform activity. * 2-D echo especially with elevated cardiac enzymes. Consider cardiology consultation. * B12, folate, TSH, B1, RPR. * Empirically start thiamine 100 mg daily * Resume Xarelto and aspirin, when medically cleared, and cause of anemia identified. * We will discuss with patient's son to get collateral history.
--- NOTE | 2020-11-16 13:46 | US ---
EXAMINATION TYPE: US carotid duplex BILAT DATE OF EXAM: 11/16/2020 COMPARISON: NONE CLINICAL HISTORY: Altered mental status, loss of memory. AMS EXAM MEASUREMENTS: RIGHT: Peak Systolic Velocity (PSV) cm/sec ----- Right CCA: 100 ----- Right ICA: 78.4 ----- Right ECA: 70.3 ICA/CCA ratio: 0.8 RIGHT: End Diastole cm/sec ----- Right CCA: 15.4 ----- Right ICA: 15.4 ----- Right ECA: 11.0 LEFT: Peak Systolic Velocity (PSV) cm/sec ----- Left CCA: 79.2 ----- Left ICA: 70.9 ----- Left ECA: 72.3 ICA/CCA ratio: 0.9 LEFT: End Diastole cm/sec ----- Left CCA: 10.9 ----- Left ICA: 19.5 ----- Left ECA: 0.0 VERTEBRALS (direction of flow): Right Vertebral: Antegrade Left Vertebral: Antegrade Rhythm: Normal No significant stenosis seen [id number] peripheral plaque bilateral carotid bulbs . Velocity measurements remain within norm al limits in the visualized portion of both internal carotid arteries. IMPRESSION: Mild to moderate atherosclerotic changes bilaterally without hemodynamically significant stenosis seen in either internal carotid artery . Criteria for Assigning % of Stenosis / Diameter reduction (Estimation based on the indirect measurements of the internal carotid artery velocities (ICA PSV). 1. Normal (no stenosis)=ICA PSV < 125 cm/s: ratio < 2.0: ICA EDV<40 cm/s. 2. Less than 50% stenosis=ICA PSV < 125 cm/s: ratio < 2.0: ICA EDV<40 cm/s. 3. 50 to 69% stenosis=ICA PSV of 125 to 230 cm/s: ration 2.0 ? 4.0: ICA EDV 40-100 cm/s. 4. Greater than 70% stenosis to near occlusion= ICA PSV > 230 cm/s: ratio > 4.0: ICA EDV > 100 cm/s. 5. Near occlusion= ICA PSV velocities may be low or undetectable: variable ratio and ICA EDV. 6. Total occlusion=unable to detect flow.
[2020-11-16] MEDS: THIAMINE 100 MG TAB PO SCH (14:05)
--- NOTE | 2020-11-16 19:35 | EEG ---
ELECTROENCEPHALOGRAM REPORT DATE OF SERVICE: 11/16/2020 This is an 85-year-old male with history of dementia. He had an episode of altered mental status. This study is performed to rule out any epileptiform activity. EEG FINDINGS: This is a 21-channel routine EEG recording on a patient utilizing 10/20 international system with referential and bipolar montages. The background consists of well- developed but moderately well-regulated, mixed frequencies of 7 hertz theta with some low-voltage mixed alpha and some beta activity. Background does not seem to be clearly reactive to eye opening or closing. Different stages of sleep were not seen. Photic driving response was not seen. No focal or generalized epileptiform activity was seen. IMPRESSION: This is a mildly abnormal EEG due to background slowing. This can be seen with encephalopathy of metabolic, vascular or degenerative etiology. No epileptiform activity was seen. MMBRINDAL / IJN: [id number] /
[2020-11-16 22:13] LABS: Folate, Serum 17.8 ng/mL
[2020-11-16] MEDS ORDERED: polyethylene glycoL 3350 17 GM POWD.PACK PO PRN (23:51)
--- NOTE | 2020-11-16 23:53 | P.PN ---
Subjective This is a pleasant 85 years old male with past medical history of atrial fibrillation, hypertension, hyperlipidemia, chronic kidney disease stage II and possible dementia. Presents with altered mental status after patient found sitting in his car which usually he can not to drive, he was sitting in the cold weather some evidence of blistering in his fingers which could be related to hypothermic injury Currently patient is awake, pleasant sitting in the chair, his son is at bedside. Patient has difficulty with aspirin; patient however he knows S the hospital but he could not recognize it is [place] on and he needed help to remember it is [facility]. He knew it is 2020 and he knew the name of the president lucho However other than that patient does not provide much of formation however he denies any specific symptoms, he denies chest pain or dyspnea, no abdominal pain. No change in urine or bowel habits. No fever. Patient has been evaluated by neurologist. CT of the brain is negative. Blood workup is unremarkable including B12, folate and TSH and normal pelvic antibodies are nonreactive EEG: No epileptiform discharge Carotid duplex: No significant stenosis on both sides Labs including CBC and BMP are unremarkable Currently he is on normal saline at 100 mL per hour Objective - Vital Signs Vital signs: Vital Signs Temp 98.6 F 11/16/20 13:00 Pulse 74 11/16/20 13:00 Resp 17 11/16/20 13:00 BP 142/76 11/16/20 13:00 Pulse Ox 98 11/16/20 13:00 Intake & Output 11/15/20 11/16/20 11/16/20 18:59 06:59 18:59 Intake Total 1680 Balance 1680 Intake: Intake, IV Titration 1200 Amount Sodium Chloride 0.9% 1, 1200 000 ml @ 100 mls/hr IV . Q10H [facility] Rx#:[id number] Oral 480 Other: Voiding Method Urinal # Voids 2 1 - Exam -GENERAL: The patient is alert and oriented x3 partially to place, not in any acute distress. Well developed, well nourished. And generally weak HEENT: Pupils are round and equally reacting to light. EOMI. No scleral icterus. No conjunctival pallor. Normocephalic, atraumatic. No pharyngeal erythema. No thyromegaly. CARDIOVASCULAR: S1 and S2 present. No murmurs, rubs, or gallops. PULMONARY: Chest is clear to auscultation, no wheezing or crackles. ABDOMEN: Soft, nontender, nondistended, normoactive bowel sounds. No palpable organomegaly. MUSCULOSKELETAL: No joint swelling or deformity. EXTREMITIES: No cyanosis, clubbing, or pedal edema. NEUROLOGICAL: Gross neurological examination did not reveal any focal deficits. SKIN: No rashes. no petechiae. - Labs CBC & Chem 7: 11/16/20 04:38 11/16/20 04:38 Labs: Abnormal Lab Results - Last 24 Hours (Table) 11/16/20 11/16/20 Range/Units 04:38 04:38 RBC 2.57 L (4.40-5.60) X 10*6/uL Hgb 8.4 L (13.0-17.0) g/dL Hct 25.6 L (39.6-50.0) % MCV 99.6 H (80.0-97.0) fL MCH 32.7 H (27.0-32.0) pg Eosinophils # 0.37 H (0.04-0.35) X 10*3/uL Chloride 113 H (96-109) mmol/L BUN 31.0 H (9.0-27.0) mg/dL BUN/Creatinine Ratio 34.44 H (12.00-20.00) Ratio Calcium 8.2 L (8.7-10.3) mg/dL Assessment and Plan Assessment: Dehydration with acute kidney injury, present on admission. Improved Metabolic encephalopathy Possible dementia Hypothermic injury with possible elements of frostbite of the fingers with blistering History of atrial fibrillation Hypertension Hyperlipidemia Plan: This is a pleasant 85 years old male who presents with AMS. Patient mentation is improved and his more awake and interactive today. Neurology input is appreciated, workup was unremarkable so far, his creatinine came down to 0.9, and patient is able to eat and drink so we will stop IV fluid Labs and medication were reviewed.. Continue same treatment. Continue with symptomatic treatment. Resume home medication. Monitor lytes and vitals. DVT and GI prophylaxis. Further recommendationsas per clinical course of the patient DVT prophylaxis: xarelto GI Prophylaxis: Pepcid PT/OT: Pending
[2020-11-17] MEDS: BRIMONIDINE TARTRATE 0.2% DROPS 5 ML BTL BOTH EYES SCH ×2 (00:47→09:32)
[2020-11-17] MEDS ORDERED: NON FORMULARY DRUG (Ergocalciferol (Vitamin D2) [Vitamin D2 (2000 Iu)] 50 MCG Tablet) PO SCH (09:00)
[2020-11-17] MEDS: amLODIPine 10 MG TAB PO SCH (09:30)
[2020-11-17] MEDS: LOSARTAN 50 MG TAB PO SCH ×2 (09:31→20:50)
[2020-11-17] MEDS: ASPIRIN 81 MG PO SCH (09:31)
[2020-11-17] MEDS: carvediloL 12.5 MG TAB PO SCH ×2 (09:31→20:50)
[2020-11-17] MEDS: DOCUSATE 100 MG CAP PO SCH (09:31)
[2020-11-17] MEDS: RIVAROXABAN 20 MG TAB PO SCH (09:32)
[2020-11-17] MEDS: THIAMINE 100 MG TAB PO SCH (09:32)
--- NOTE | 2020-11-17 12:31 | P.PN ---
Subjective Progress Note Date: 11/17/20 Patient was seen for a follow-up. Patient denies any headache. Still continues to be confused, with some speech difficulty. At times he started speaking [place] language. Speech is somewhat halted dysarthric but no aphasia. I spoke to patient's son Dontrell, whom he lives with. He states that patient has been doing very well until Sunday when he found him sitting in the car. He believes that patient was sitting in the car for almost an hour with no car running, and only wearing slippers. Patient does not use any assistive device. He has no issues controlling urine or bowels or bladder. Patient's son states that his memory functions has been fairly well, not an issue. Only in the last couple months he had some incidence, when he woke up and was confused, probably woke up in a dream and talking nonsense, but was not on a daily basis occurred only occasionally. Otherwise he has not noticed any signs of stroke. Patient's son states that there is no issues with the memory otherwise besides mentioned above. Objective - Vital Signs Vital signs: Vital Signs Temp 98.5 F 11/17/20 09:00 Pulse 96 11/17/20 09:00 Resp 16 11/17/20 09:00 BP 135/83 11/17/20 09:00 Pulse Ox 96 11/17/20 09:00 Intake & Output 11/16/20 11/17/20 11/17/20 18:59 06:59 18:59 Intake Total 1200 960 Balance 1200 960 Intake: Intake, IV Titration 1200 600 Amount Sodium Chloride 0.9% 1, 1200 600 000 ml @ 100 mls/hr IV . Q10H [facility] Rx#:[id number] Oral 360 Other: Voiding Method Urinal Urinal Urinal # Voids 2 - Exam Patient is alert and awake, still with very slow mentation, prolonged latency time to answer questions. Speech is still somewhat halted, stuttering, dysarthric but no aphasia. Patient can name all objects. His pupils are round and reacting, visual caro probably normal in face is symmetric, except for lef t upper forehead region, which has decreased drinking from before, and tongue protrudes the midline. Muscle strength is normal in the arms and legs. Continues to have blisters on the fingertips. Sensations are equal. No obvious ataxia. - Labs CBC & Chem 7: 11/16/20 04:38 11/16/20 04:38 Assessment and Plan Assessment: * 85-year-old male brought to the hospital after he was found sitting outside in car in cold weather for an hour, with frostbite involving his fingertips, and the right ear. Exact cause is uncertain, rule out delirium, CVA or encephalopathy. CT scan of the head showed prominence of ventricles, with generalized cerebral atrophy particularly involving the frontal and temporal lobes. Rule out NPH. Per patient's son report, patient has no prior history of gait, memory issues or bladder control issues. * Atrial fibrillation, currently on Xarelto and aspirin 81 mg. * Elevated cardiac enzymes * Anemia, worse today with hemoglobin 8.4 * Hypertension Plan: * Carotid Doppler revealed mild to moderate atherosclerotic changes bilaterally without significant stenosis. * EEG revealed mild to moderate background slowing, consistent with encephalopathy, with no epileptiform activity. * 2-D echo still pending. * B12 657, folate 17.8, TSH 0.73, RPR nonreactive. Vitamin B1 level still pending. * Empirically start thiamine 100 mg daily * Resume Xarelto and aspirin, when medically cleared, and cause of anemia identified. * Discussed with patient's son in detail. No previous history of dementia or memory loss. Patient's gait was normal. On acute changes started on Sunday when he was found in the car. We will check MRI of the brain to rule out any CVA or other structural abnormalities.
--- NOTE | 2020-11-17 12:51 | ECHOF ---
Referral Reason:Altered mental status, elevated cardiac enzymes MEASUREMENTS -------- HEIGHT: 182.9 cm WEIGHT: 68.0 kg BP: 133/69 RVIDd: 3.0 cm (< 3.3) IVSd: 1.6 cm (0.6 - 1.1) LVIDd: 3.5 cm (3.9 - 5.3) LVPWd: 1.7 cm (0.6 - 1.1) IVSs: 2.0 cm LVIDs: 2.1 cm LVPWs: 1.7 cm LAESV Index (A-L): 28.17 ml/m Ao Diam: 2.5 cm (2.0 - 3.7) AV Cusp: 0.8 cm (1.5 - 2.6) MV E Tom: 0.74 m/s MV A Tom: 1.10 m/s MV E/A Ratio: 0.67 AV maxP.43 mmHg AV meanP.78 mmHg RAP: 5.00 mmHg RVSP: 16.82 mmHg FINDINGS -------- Sinus rhythm. This was a technically adequate study. The left ventricular size is normal. There is moderate concentric left ventricular hypertrophy. O verall left ventricular systolic function is normal with, an EF between 55 - 60 %. The right ventricle is normal in size. Normal LA size by volume 22+/-6 ml/m2. The right atrium is mildly enlarged. Interatrial and interventricular septum intact. There is moderate aortic valve sclerosis. There is [id number] aortic regurgitation. There i s moderate aortic stenosis present. Peak/mean gradient across the Aortic Valve is 48.43mmHg / 35.78 mmHg. Moderate mitral annular calcification present. Mild mitral regurgitation is present. The tricuspid valve appears structurally normal. Mild tricuspid regurgitation present. There is n o evidence of pulmonary hypertension. The right ventricular systolic pressure, as measured by Doppl er, is 16.82mmHg. There is no pulmonic regurgitation present. The aortic root size is normal. IVC Not well visulized. There is no pericardial effusion. CONCLUSIONS -------- 1. There is moderate concentric left ventricular hypertrophy. 2. Overall left ventricular systolic function is normal with, an EF between 55 - 60 %. 3. Normal LA size by volume 22+/-6 ml/m2. 4. The right atrium is mildly enlarged. 5. There is moderate aortic valve sclerosis. 6. There is jlnr-[id number] aortic regurgitation. 7. There is moderate aortic stenosis present. 8. Peak/mean gradient across the Aortic Valve is 48.43mmHg / 35.78mmHg. 9. Moderate mitral annular calcification present. 10. Mild mitral regurgitation is present. 11. Mild tricuspid regurgitation present. MEDICATION AIDE: Talia Hair RDCS
[2020-11-17 14:14] LABS: Basophils # (A) 0.03 X 10*3/uL (0.00-0.10); Basophils % (A) 0.4 %; Eosinophils # (A) 0.44 X 10*3/uL (0.04-0.35); Eosinophils % (A) 6.2 %; HCT 27.1 % (39.6-50.0); Lymphocytes # (A) 1.17 X 10*3/uL (0.90-5.00); Lymphocytes % (A) 16.6 %; MCH 32.3 pg (27.0-32.0); MCHC 33.2 g/dL (32.0-37.0); MCV 97.1 fL (80.0-97.0); Monocytes % (A) 8.5 %; Neutrophils # (A) 4.79 X 10*3/uL (1.80-7.70); Platelet Count 147 X 10*3/uL (140-440); RBC 2.79 X 10*6/uL (4.40-5.60); RDW 12.9 % (11.5-14.5); WBC 7.05 X 10*3/uL (4.50-10.00)
[2020-11-17 14:56] LABS: African American GFR (CKD) 93.1 (60.0-200.0); Anion Gap 5.8 mmol/L (4.00-12.00); Calcium 7.9 mg/dL (8.7-10.3); Carbon Dioxide 27.2 mmol/L (21.6-31.8); Non-African American GFR(CKD) 80.3 (60.0-200.0); Potassium 3.4 mmol/L (3.5-5.5)
--- NOTE | 2020-11-17 16:35 | MR ---
EXAMINATION TYPE: MR brain wo/w con DATE OF EXAM: 11/17/2020 COMPARISON: CT brain from 3 days ago and older CT 2018 HISTORY: Altered mental status, rule out CVA, rule out NPH. TECHNIQUE: Multiplanar, multisequence images of the brain and brainstem is performed without and with IV contras t, utilizing 7 mL intravenous Gadavist . FINDINGS: Diffusion weighted images demonstrate no evidence of a recent infarct or other diffusion ab normality. Diffuse ventricular and sulcal prominence redemonstrated. Extension into fourth ventricle seen. Degree of ventricular dilatation progressed from 2018 CT study. T2 hyperintensity in the perive ntricular white matter could reflect transependymal flow of CSF but is nonspecific. Midline structures demonstrate normal morphology. The craniocervical junction appears within normal limits. Post contrast images demonstrate no abnormal enhancement. The dural venous sinuses appear pa tent. Mild to moderate mucosal thickening involving the left maxillary sinus redemonstrated. Patchy m ild to moderate mucosal thickening throughout the ethmoid sinuses bilaterally. Left lens not well see n unchanged from 2018 study, possible cataract surgery. IMPRESSION: 1. No MRI evidence for a recent infarct. 2. Moderate diffuse cerebral atrophy greatest over the bilateral frontal and temporal lobes with dege nerative progression from 2018 study. Degree of ventricular prominence slightly more prominent from 2 018 study but felt not overtly prominent for the degree of atrophy to suggest normal pressure hydroce phalus. Correlate clinically.
[2020-11-17] MEDS: PRAVASTATIN SODIUM 80 MG TAB PO SCH (20:50)
[2020-11-17] MEDS: LATANOPROST 0.005% OPHTH DROPS 2.5 ML BTL BOTH EYES SCH (20:50)
--- NOTE | 2020-11-17 21:05 | P.PN ---
Subjective This is a pleasant 85 years old male with past medical history of atrial fibrillation, hypertension, hyperlipidemia, chronic kidney disease stage II and possible dementia. Presents with altered mental status after patient found sitting in his car which usually he can not to drive, he was sitting in the cold weather some evidence of blistering in his fingers which could be related to hypothermic injury Currently patient is awake, pleasant sitting in the chair, his son is at bedside. Patient has difficulty with aspirin; patient however he knows S the hospital but he could not recognize it is [place] on and he needed help to remember it is [facility]. He knew it is 2020 and he knew the name of the president lucho However other than that patient does not provide much of formation however he denies any specific symptoms, he denies chest pain or dyspnea, no abdominal pain. No change in urine or bowel habits. No fever. Patient has been evaluated by neurologist. CT of the brain is negative. Blood workup is unremarkable including B12, folate and TSH and normal pelvic antibodies are nonreactive EEG: No epileptiform discharge Carotid duplex: No significant stenosis on both sides Labs including CBC and BMP are unremarkable Currently he is on normal saline at 100 mL per hour 11/17/2020 Patient is sitting in chair, comfortable and pleasant, still confused to time place and person and to the surrounding, little worse compared to yesterday however there is no significant change in his clinical situation. No specific physical complaint. Patient is not in distress. Hemodynamically stable and patient is afebrile CBC and BMP are stable since admission and vitamin B-12, folate and TSH are all within the reference range MRI of the brain no infarct. Moderate diffuse cerebral atrophy with some degree of ventricular murmurs prominence EEG showed no epileptiform discharge and is more suggestive of encephalopathy Patient is eating 50-100% of his medial, we can stop IV fluids Patient will benefit from subacute rehab upon discharge Objective - Vital Signs Vital signs: Vital Signs Temp 97.8 F 11/17/20 13:00 Pulse 70 11/17/20 13:00 Resp 17 11/17/20 13:00 BP 115/69 11/17/20 13:00 Pulse Ox 96 11/17/20 13:00 Intake & Output 11/16/20 11/17/20 11/17/20 18:59 06:59 18:59 Intake Total 1200 960 Balance 1200 960 Intake: Intake, IV Titration 1200 600 Amount Sodium Chloride 0.9% 1, 1200 600 000 ml @ 100 mls/hr IV . Q10H [facility] Rx#:[id number] Oral 360 Other: Voiding Method Urinal Urinal Urinal # Voids 2 - Exam -GENERAL: The patient is alert and oriented x3 partially to place, not in any acute distress. Well developed, well nourished. And generally weak HEENT: Pupils are round and equally reacting to light. EOMI. No scleral icterus. No conjunctival pallor. Normocephalic, atraumatic. No pharyngeal erythema. No thyromegaly. CARDIOVASCULAR: S1 and S2 present. No murmurs, rubs, or gallops. PULMONARY: Chest is clear to auscultation, no wheezing or crackles. ABDOMEN: Soft, nontender, nondistended, normoactive bowel sounds. No palpable organomegaly. MUSCULOSKELETAL: No joint swelling or deformity. EXTREMITIES: No cyanosis, clubbing, or pedal edema. NEUROLOGICAL: Gross neurological examination did not reveal any focal deficits. SKIN: No rashes. no petechiae. - Labs CBC & Chem 7: 11/17/20 08:21 11/17/20 08:21 Assessment and Plan Assessment: Dehydration with acute kidney injury, present on admission. Improved Metabolic encephalopathy Possible dementia Hypothermic injury with possible elements of frostbite of the fingers with b listering History of atrial fibrillation Hypertension Hyperlipidemia Plan: This is a pleasant 85 years old male who presents with AMS. Patient mentation is improved and his more awake and interactive today. Neurology input is appreciated, workup was unremarkable so far, his creatinine came down to 0.9, and patient is able to eat and drink so we will stop IV fluid Labs and medication were reviewed.. Continue same treatment. Continue with symptomatic treatment. Resume home medication. Monitor lytes and vitals. DVT and GI prophylaxis. Further recommendationsas per clinical course of the patient DVT prophylaxis: xarelto GI Prophylaxis: Pepcid PT/OT: Pending
[2020-11-18] MEDS: amLODIPine 10 MG TAB PO SCH (08:23)
[2020-11-18] MEDS: ASPIRIN 81 MG PO SCH (08:23)
[2020-11-18] MEDS: BRIMONIDINE TARTRATE 0.2% DROPS 5 ML BTL BOTH EYES SCH (08:23)
[2020-11-18] MEDS: DOCUSATE 100 MG CAP PO SCH (08:24)
[2020-11-18] MEDS: RIVAROXABAN 20 MG TAB PO SCH (08:24)
[2020-11-18] MEDS: LOSARTAN 50 MG TAB PO SCH ×2 (08:24→21:56)
[2020-11-18] MEDS: carvediloL 12.5 MG TAB PO SCH ×2 (08:24→22:15)
[2020-11-18] MEDS: THIAMINE 100 MG TAB PO SCH (08:24)
[2020-11-18 10:34] LABS: Basophils # (A) 0.03 X 10*3/uL (0.00-0.10); Basophils % (A) 0.5 %; Eosinophils # (A) 0.54 X 10*3/uL (0.04-0.35); Eosinophils % (A) 9.7 %; HCT 25.8 % (39.6-50.0); HGB 8.8 g/dL (13.0-17.0); Lymphocytes # (A) 1.09 X 10*3/uL (0.90-5.00); Lymphocytes % (A) 19.5 %; MCH 33.1 pg (27.0-32.0); MCHC 34.1 g/dL (32.0-37.0); Mean Platelet Volume 10.9 fL (9.5-12.2); Monocytes % (A) 8.9 %; Neutrophils # (A) 3.41 X 10*3/uL (1.80-7.70); Platelet Count 138 X 10*3/uL (140-440); RBC 2.66 X 10*6/uL (4.40-5.60); RDW 13.2 % (11.5-14.5); WBC 5.59 X 10*3/uL (4.50-10.00)
[2020-11-18 11:21] LABS: African American GFR (CKD) 88.7 (60.0-200.0); Anion Gap 4.4 mmol/L (4.00-12.00); BUN/Creat Ratio 26.67 Ratio (12.00-20.00); Calcium 8.1 mg/dL (8.7-10.3); Carbon Dioxide 28.6 mmol/L (21.6-31.8); Non-African American GFR(CKD) 76.5 (60.0-200.0); Potassium 3.6 mmol/L (3.5-5.5)
--- NOTE | 2020-11-18 19:53 | P.PN ---
Subjective This is a pleasant 85 years old male with past medical history of atrial fibrillation, hypertension, hyperlipidemia, chronic kidney disease stage II and possible dementia. Presents with altered mental status after patient found sitting in his car which usually he can not to drive, he was sitting in the cold weather some evidence of blistering in his fingers which could be related to hypothermic injury Currently patient is awake, pleasant sitting in the chair, his son is at bedside. Patient has difficulty with aspirin; patient however he knows S the hospital but he could not recognize it is [place] on and he needed help to remember it is [facility]. He knew it is 2020 and he knew the name of the president jamin However other than that patient does not provide much of formation however he denies any specific symptoms, he denies chest pain or dyspnea, no abdominal pain. No change in urine or bowel habits. No fever. Patient has been evaluated by neurologist. CT of the brain is negative. Blood workup is unremarkable including B12, folate and TSH and normal pelvic antibodies are nonreactive EEG: No epileptiform discharge Carotid duplex: No significant stenosis on both sides Labs including CBC and BMP are unremarkable Currently he is on normal saline at 100 mL per hour 11/17/2020 Patient is sitting in chair, comfortable and pleasant, still confused to time place and person and to the surrounding, little worse compared to yesterday however there is no significant change in his clinical situation. No specific physical complaint. Patient is not in distress. Hemodynamically stable and patient is afebrile CBC and BMP are stable since admission and vitamin B-12, folate and TSH are all within the reference range MRI of the brain no infarct. Moderate diffuse cerebral atrophy with some degree of ventricular murmurs prominence EEG showed no epileptiform discharge and is more suggestive of encephalopathy Patient is eating 50-100% of his medial, we can stop IV fluids Patient will benefit from subacute rehab upon discharge 11/18/2020 Patient is alert awake and oriented to time, place and person as he knows he is in the hospital and is name is [facility]. He knows the year 2020 and the name of the president Jamin. He has no specific complaints His blisters of the finger starburst and sulfasalazine is provided MRI of the brain showing there is suspicion of large ventricle , I discussed the case with neurology service and they recommended lumbar puncture for possible normal pressure hydrocephalus His aspirin and xarelto were held today. Consult intervention radiology Objective - Vital Signs Vital signs: Vital Signs Temp 97.8 F 11/18/20 12:20 Pulse 64 11/18/20 12:20 Resp 14 11/18/20 12:20 BP 95/58 11/18/20 12:20 Pulse Ox 97 11/18/20 12:20 Intake & Output 11/17/20 11/18/20 11/18/20 18:59 06:59 18:59 Intake Total 120 Balance 120 Intake: Oral 120 Other: Voiding Method Urinal Diaper Diaper # Voids 3 3 - Exam -GENERAL: The patient is alert and oriented x3 partially to place, not in any acute distress. Well developed, well nourished. And generally weak HEENT: Pupils are round and equally reacting to light. EOMI. No scleral icterus. No conjunctival pallor. Normocephalic, atraumatic. No pharyngeal erythema. No thyromegaly. CARDIOVASCULAR: S1 and S2 present. No murmurs, rubs, or gallops. PULMONARY: Chest is clear to auscultation, no wheezing or crackles. ABDOMEN: Soft, nontender, nondistended, normoactive bowel sounds. No palpable organomegaly. MUSCULOSKELETAL: No joint swelling or deformity. EXTREMITIES: No cyanosis, clubbing, or pedal edema. NEUROLOGICAL: Gross neurological examination did not reveal any focal deficits. SKIN: No rashes. no petechiae. - Labs CBC & Chem 7: 11/18/20 07:47 11/18/20 07:47 Labs: Abnormal Lab Results - Last 24 Hours (Table) 11/17/20 11/17/20 11/18/20 Range/Units 08:21 08: 07:47 RBC 2.79 L 2.66 L (4.40-5.60) X 10*6/uL Hgb 9.0 L 8.8 L (13.0-17.0) g/dL Hct 27.1 L 25.8 L (39.6-50.0) % MCV 97.1 H (80.0-97.0) fL MCH 32.3 H 33.1 H (27.0-32.0) pg Plt Count 138 L (140-440) X 10*3/uL Eosinophils # 0.44 H 0.54 H (0.04-0.35) X 10*3/uL Potassium 3.4 L (3.5-5.5) mmol/L BUN/Creatinine Ratio 25.00 H (12.00-20.00) Ratio Calcium 7.9 L (8.7-10.3) mg/dL 11/18/20 Range/Units 07:47 RBC (4.40-5.60) X 10*6/uL Hgb (13.0-17.0) g/dL Hct (39.6-50.0) % MCV (80.0-97.0) fL MCH (27.0-32.0) pg Plt Count (140-440) X 10*3/uL Eosinophils # (0.04-0.35) X 10*3/uL Potassium (3.5-5.5) mmol/L BUN/Creatinine Ratio 26.67 H (12.00-20.00) Ratio Calcium 8.1 L (8.7-10.3) mg/dL Assessment and Plan Assessment: Dehydration with acute kidney injury, present on admission. Improved Metabolic encephalopathy, improved Possible dementia. Rule out normal pressure hydrocephalus. Hypothermic injury with possible elements of frostbite of the fingers with blistering. Improving History of atrial fibrillation Hypertension Hyperlipidemia Plan: This is a pleasant 85 years old male who presents with AMS. Patient mentation is improved and his more awake and interactive today. Neurology input is appreciated, they recommended lumbar puncture for possible NPH, we will consult IR for possible lumbar puncture per neurologist recommendation. Xarelto and aspirin on hold Labs and medication were reviewed.. Continue same treatment. Continue with symptomatic treatment. Resume home medication. Monitor lytes and vitals. DVT and GI prophylaxis. Further recommendations as per clinical course of the patient DVT prophylaxis: xarelto GI Prophylaxis: Pepcid PT/OT: Subacute rehab upon discharge, discussed with patient and he agrees
--- NOTE | 2020-11-18 20:11 | P.PN ---
Subjective Progress Note Date: 11/18/20 Patient was seen for a follow-up. Patient denies headache, offers no new complaints. Patient continues to be slightly encephalopathic, spacey, with slow mentation. I spoke to patient's son Dontrell, whom he lives with. He states that patient has been doing very well until Sunday when he found him sitting in the car. He believes that patient was sitting in the car for almost an hour with no car running, and only wearing slippers. Patient does not use any assistive device. He has no issues controlling urine or bowels or bladder. Patient's son states that his memory functions has been fairly well, not an issue. Only in the last couple months he had some incidence, when he woke up and was confused, probably woke up in a dream and talking nonsense, but was not on a daily basis occurred only occasionally. Otherwise he has not noticed any signs of stroke. Patient's son states that there is no issues with the memory otherwise besides mentioned above. Objective - Vital Signs Vital signs: Vital Signs Temp 97.6 F 11/18/20 05:00 Pulse 67 11/18/20 08:00 Resp 18 11/18/20 08:00 BP 145/71 11/18/20 05:00 Pulse Ox 96 11/18/20 05:00 Intake & Output 11/17/20 11/18/20 11/18/20 18:59 06:59 18:59 Intake Total 120 Balance 120 Intake: Oral 120 Other: Voiding Method Urinal Diaper Diaper # Voids 3 3 - Exam Patient is alert and awake, still with very slow mentation, prolonged latency time to answer questions. Speech is still somewhat halted, stuttering, dysarthric but no aphasia. Speech slightly better than yesterday. Patient can name all objects. His pupils are round and reacting, visual caro probably normal, the face is symmetric, except for left upper forehead region, which has decreased wrinkling from before, and tongue protrudes the midline. Muscle strength is normal in the arms and legs. Continues to have blisters on the fingertips, which has started oozing. Patient states the month is November and the year is . Sensations are equal. I wanted patient's gait to be checked. Patient required to assist to get him up and also required to assist to help him walk and he was taking short shuffling steps almost like magnetic gait. - Labs CBC & Chem 7: 11/18/20 07:47 11/18/20 07:47 Labs: Abnormal Lab Results - Last 24 Hours (Table) 11/17/20 11/17/20 11/18/20 Range/Units 08:21 08:21 07:47 RBC 2.79 L 2.66 L (4.40-5.60) X 10*6/uL Hgb 9.0 L 8.8 L (13.0-17.0) g/dL Hct 27.1 L 25.8 L (39.6-50.0) % MCV 97.1 H (80.0-97.0) fL MCH 32.3 H 33.1 H (27.0-32.0) pg Plt Count 138 L (140-440) X 10*3/uL Eosinophils # 0.44 H 0.54 H (0.04-0.35) X 10*3/uL Potassium 3.4 L (3.5-5.5) mmol/L BUN/Creatinine Ratio 25.00 H (12.00-20.00) Ratio Calcium 7.9 L (8.7-10.3) mg/dL 11/18/20 Range/Units 07:47 RBC (4.40-5.60) X 10*6/uL Hgb (13.0-17.0) g/dL Hct (39.6-50.0) % MCV (80.0-97.0) fL MCH (27.0-32.0) pg Plt Count (140-440) X 10*3/uL Eosinophils # (0.04-0.35) X 10*3/uL Potassium (3.5-5.5) mmol/L BUN/Creatinine Ratio 26.67 H (12.00-20.00) Ratio Calcium 8.1 L (8.7-10.3) mg/dL Assessment and Plan Assessment: * Altered mental status, with new onset gait difficulty, unclear etiology. Computed tomography scan of the head showed slightly prominence of the ventricles, although these associated cortical atrophy, particularly in the frontal and temporal lobes. Rule out frontotemporal dementia, versus NPH. * Atrial fibrillation, currently on Xarelto and aspirin 81 mg. * Elevated cardiac enzymes * Anemia, worse today with hemoglobin 8.4 * Hypertension Plan: * MRI of the brain revealed no acute infarct. Moderate diffuse cerebral atrophy greatest over the bilateral frontal and temporal lobes with degenerative progression from 2018 study. Degree of ventricular prominence slightly more prominent from 2018 study but felt not overtly prominent for the degree of atrophy to suggest normal pressure hydrocephalus. Correlate clinically. Per patient's son report, patient used to walk normally although slowly, but did not use any assistive device. This is an acute change in his gait. NPH needs to be ruled out. We will perform large volume spinal tap to evaluate for possible NPH. Tried to call patient's son, but left a message with my cell phone number. * Carotid Doppler revealed mild to moderate atherosclerotic changes bilaterally without significant stenosis. * EEG revealed mild to moderate background slowing, consistent with encephalopathy, with no epileptiform activity. * 2-D echo revealed moderate concentric LVH, EF is 55-60%. Normal left atrial size. Moderate aortic valve sclerosis. Mild to moderate AR. Moderate aortic stenosis. * B12 657, folate 17.8, TSH 0.73, RPR nonreactive. Vitamin B1 level still pending. * Continue thiamine 100 mg daily * Hold Xarelto until lumbar puncture is completed. Addendum 8:11 PM. Again tried to contact patient's son, and was able to get hold of him. Informed him the reason for lumbar puncture. Patient's son agreed to pursue with lumbar puncture.
[2020-11-18] MEDS: LATANOPROST 0.005% OPHTH DROPS 2.5 ML BTL BOTH EYES SCH (22:15)
[2020-11-18] MEDS: PRAVASTATIN SODIUM 80 MG TAB PO SCH (22:15)
[2020-11-19] MEDS: LOSARTAN 50 MG TAB PO SCH ×2 (07:59→20:42)
[2020-11-19] MEDS: DOCUSATE 100 MG CAP PO SCH (07:59)
[2020-11-19] MEDS: THIAMINE 100 MG TAB PO SCH (07:59)
[2020-11-19] MEDS: BRIMONIDINE TARTRATE 0.2% DROPS 5 ML BTL BOTH EYES SCH (07:59)
[2020-11-19] MEDS: carvediloL 12.5 MG TAB PO SCH ×2 (08:00→20:41)
[2020-11-19] MEDS: amLODIPine 10 MG TAB PO SCH (08:00)
[2020-11-19 12:17] VITALS: BMI 20.3
[2020-11-19] MEDS: SILVER sulfADIAZINE Cream 400 GM 1 APPLIC APPLIC TOPICAL SCH (13:47)
--- NOTE | 2020-11-19 14:21 | FL ---
Lumbar puncture INDICATION: Mental status change FINDINGS: Fluoroscopy time: 46 seconds. Images obtained: 3. Informed consent was obtained. A timeout was performed. The L4-5 level was chosen for access. Maximum barrier sterile technique was utilized. The skin was cl eansed with Betadine and the patient sterilely prepped and draped in the usual manner. The skin and d eeper tissue was anesthetized with 1% Lidocaine. The L4-5 level was attempted which was unsuccessful. Early decision for L3-4 access was performed and the Z axis was obtained with good CSF return. Utili zing a 18-gauge spinal needle the spinal canal was accessed. Opening and closing pressures were obtai rosalia measuring 11 mL and 7 mL respectively. A total of 16 mL of CSF was obtained in 4 separate files a nd labeled and transferred for preimplant testing. The stylette was replaced and the needle withdrawn . The patient tolerated the procedure well. Was returned to his room for monitoring. IMPRESSIONS: 1. Successful Lumbar Puncture.
[2020-11-19 15:28] LABS: Glucose,CSF 57 mg/dL (40-70); Total Protein,CSF 47 mg/dL (12-60)
[2020-11-19 16:16] LABS: Appearance,CSF Clear; CSF Tube Number 4
[2020-11-19 16:17] LABS: Nucleated Cells, CSF 2 u/L (0-5); Red Blood Cell,CSF 1 u/L (0-10)
--- NOTE | 2020-11-19 19:12 | P.PN ---
Subjective Progress Note Date: 11/19/20 Patient was seen for a follow-up. Patient continues to be confused. Patient states "96 years too late to graduate", then he states "prepare for people to come". Then he said "what's going on". Patient started speaking in his own Romansh language. Patient could not tell what month or year is it. Patient underwent spinal fluid examination today as mentioned below. I spoke to patient's son Dontrell, whom he lives with. He states that patient has been doing very well until Sunday when he found him sitting in the car. He believes that patient was sitting in the car for almost an hour with no car ru nning, and only wearing slippers. Patient does not use any assistive device. He has no issues controlling urine or bowels or bladder. Patient's son states that his memory functions has been fairly well, not an issue. Only in the last couple months he had some incidence, when he woke up and was confused, probably woke up in a dream and talking nonsense, but was not on a daily basis occurred only occasionally. Otherwise he has not noticed any signs of stroke. Patient's son states that there is no issues with the memory otherwise besides mentioned above. Objective - Vital Signs Vital signs: Vital Signs Temp 98 F 11/19/20 05:00 Pulse 71 11/19/20 14:05 Resp 16 11/19/20 13:15 BP 124/80 11/19/20 14:05 Pulse Ox 93 L 11/19/20 13:15 Intake & Output 11/18/20 11/19/20 11/19/20 18:59 06:59 18:59 Intake Total 240 200 480 Balance 240 200 480 Weight 68.039 kg Intake: Oral 240 200 480 Other: Voiding Method Diaper Diaper Diaper # Voids 1 1 3 # Bowel Movements 1 1 - Exam Patient is alert and awake, still with very slow mentation, prolonged latency time to answer questions. Speech is still somewhat halted, stuttering, dysarthric but no aphasia. Patient could not tell what month or year is it. He talks out of context. Patient underwent lumbar puncture today. Following the lumbar puncture, I wanted agent to walk. With 2 assist, he was able to stand up. He was not able to make any steps, again shuffling gait, and would tend to fall backwards. No improvement at all with lumbar puncture, suggestive of no evidence of NPH. Tone is increased mildly increased with some paratonia. There is definite bradykinesia. Some parkinsonian features. No tremors at rest noted. - Labs CBC & Chem 7: 11/18/20 07:47 11/18/20 07:47 Labs: Microbiology - Last 24 Hours (Table) 11/19/20 13:06 CSF Culture - Preliminary Cerebral Spinal Fluid Assessment and Plan Assessment: * Altered mental status, with new onset gait difficulty, unclear etiology. Computed tomography scan of the head showed prominent atrophy of frontal and temporal lobes, suggestive of possible frontotemporal dementia. No evidence of normal pressure hydrocephalus. Large volume spinal tap did not produce any improvement in his gait. * Bradykinesia, postural instability, mildly increased tone, some parkinsonian features. No tremors. * Atrial fibrillation, currently on Xarelto and aspirin 81 mg. * Elevated cardiac enzymes * Anemia, worse today with hemoglobin 8.4 * Hypertension Plan: * Patient underwent lumbar puncture by IR. Opening pressure was 11 cm, and jae sing pressures 7 cm. A total of 16 mL of spinal fluid was withdrawn. Spinal fluid examination showed 1 RBC, 2 WBC, 57 glucose, total proteins 47 normal (12-60). Gram stain and culture negative. * Patient's gait or his mental status did not improve at all after spinal fluid examination. This essentially rules out normal pressure hydrocephalus. No signs of intracranial infection. I informed the patient's son about the results of spinal fluid, and lack of improvement with lumbar puncture. * Patient probably has developed dementia. I will start him on Aricept 5 mg daily. Discussed with patient's and he completely agreed. Patient may need to follow-up with a neurologist as outpatient. Consider trial of Sinemet if his gait dysfunction persist. * MRI of the brain revealed no acute infarct. Moderate diffuse cerebral atrophy greatest over the bilateral frontal and temporal lobes with degenerative progression from 2018 study. Degree of ventricular prominence slightly more prominent from 2018 study but felt not overtly prominent for the degree of atrophy to suggest normal pressure hydrocephalus. Correlate clinically. * Carotid Doppler revealed mild to moderate atherosclerotic changes bilaterally without significant stenosis. * EEG revealed mild to moderate background slowing, consistent with encephalopathy, with no epileptiform activity. * 2-D echo revealed moderate concentric LVH, EF is 55-60%. Normal left atrial size. Moderate aortic valve sclerosis. Mild to moderate AR. Moderate aortic stenosis. * B12 657, folate 17.8, TSH 0.73, RPR nonreactive. Vitamin B1 55 (30-122). * We will discontinue thiamine. * Resume Xarelto for atrial fibrillation. * Neurologically, no other workup indicated.
[2020-11-19] MEDS: RIVAROXABAN 20 MG TAB PO SCH (20:41)
[2020-11-19] MEDS: ASPIRIN 81 MG PO SCH (20:41)
[2020-11-19] MEDS: LATANOPROST 0.005% OPHTH DROPS 2.5 ML BTL BOTH EYES SCH (20:42)
[2020-11-19] MEDS: PRAVASTATIN SODIUM 80 MG TAB PO SCH (20:42)
[2020-11-19] MEDS: DONEPEZIL 5 MG TAB PO SCH (20:56)
--- NOTE | 2020-11-20 09:12 | P.PN ---
Subjective This is a pleasant 85 years old male with past medical history of atrial fibrillation, hypertension, hyperlipidemia, chronic kidney disease stage II and possible dementia. Presents with altered mental status after patient found sitting in his car which usually he can not to drive, he was sitting in the cold weather some evidence of blistering in his fingers which could be related to hypothermic injury Currently patient is awake, pleasant sitting in the chair, his son is at bedside. Patient has difficulty with aspirin; patient however he knows S the hospital but he could not recognize it is [place] [facility] and he needed help to remember it is [facility]. He knew it is 2020 and he knew the name of the president jamin However other than that patient does not provide much of formation however he denies any specific symptoms, he denies chest pain or dyspnea, no abdominal pain. No change in urine or bowel habits. No fever. Patient has been evaluated by neurologist. CT of the brain is negative. Blood workup is unremarkable including B12, folate and TSH and normal pelvic antibodies are nonreactive EEG: No epileptiform discharge Carotid duplex: No significant stenosis on both sides Labs including CBC and BMP are unremarkable Currently he is on normal saline at 100 mL per hour 11/17/2020 Patient is sitting in chair, comfortable and pleasant, still confused to time place and person and to the surrounding, little worse compared to yesterday however there is no significant change in his clinical situation. No specific physical complaint. Patient is not in distress. Hemodynamically stable and patient is afebrile CBC and BMP are stable since admission and vitamin B-12, folate and TSH are all within the reference range MRI of the brain no infarct. Moderate diffuse cerebral atrophy with some degree of ventricular murmurs prominence EEG showed no epileptiform discharge and is more suggestive of encephalopathy Patient is eating 50-100% of his medial, we can stop IV fluids Patient will benefit from subacute rehab upon discharge 11/18/2020 Patient is alert awake and oriented to time, place and person as he knows he is in the hospital and is name is [facility]. He knows the year 2020 and the name of the president Jamin. He has no specific complaints His blisters of the finger starburst and sulfasalazine is provided MRI of the brain showing there is suspicion of large ventricle , I discussed the case with neurology service and they recommended lumbar puncture for possible normal pressure hydrocephalus His aspirin and xarelto were held today. Consult intervention radiology 11/19/2020 Patient mentation is fluctuating slightly, today is better as he knows he is in the hospital and his knows the need of the president and the year. He denies chest pain or dyspnea or diarrhea or fever Finger blisters are ruptured and sulfasalazine was applied. MRI of the brain showing no acute infarction but ventricles aren't enlarged concerning for normal pressure hydrocephalus. I discussed the case with neurology service and the recommended lumbar puncture in house[place] [phone] [place] inform him that yesterday the patient was on Xarelto and aspirin which are held now, she informed me that the window for the Xarelto before doing lumbar puncture is 24 hours which is already passed for the patient so history of from this regards however regarding the aspirin they themselves called Dr. Espinosa and ask him a lumbar puncture can be done as an outpatient after holding aspirin for 7 days and he recommended for inhouse lumbar puncture for today I discussed doing lumbar puncture with the patient and risks and benefits and he verbalized understanding and acceptance [id number] Objective - Vital Signs Vital signs: Vital Signs Temp 98 F 11/19/20 05:00 Pulse 71 11/19/20 14:05 Resp 16 11/19/20 13:15 BP 124/80 11/19/20 14:05 Pulse Ox 93 L 11/19/20 13:15 Intake & Output 11/18/20 11/19/20 11/19/20 18:59 06:59 18:59 Intake Total 240 200 240 Balance 240 200 240 Weight 68.039 kg Intake: Oral 240 200 240 Other: Voiding Method Diaper Diaper Diaper # Voids 1 1 # Bowel Movements 1 - Exam -GENERAL: The patient is alert and oriented x3 partially to place, not in any acute distress. Well developed, well nourished. And generally weak HEENT: Pupils are round and equally reacting to light. EOMI. No scleral icterus. No conjunctival pallor. Normocephalic, atraumatic. No pharyngeal erythema. No thyromegaly. CARDIOVASCULAR: S1 and S2 present. No murmurs, rubs, or gallops. PULMONARY: Chest is clear to auscultation, no wheezing or crackles. ABDOMEN: Soft, nontender, nondistended, normoactive bowel sounds. No palpable or ganomegaly. MUSCULOSKELETAL: No joint swelling or deformity. EXTREMITIES: No cyanosis, clubbing, or pedal edema. NEUROLOGICAL: Gross neurological examination did not reveal any focal deficits. SKIN: No rashes. no petechiae. - Labs CBC & Chem 7: 11/18/20 07:47 11/18/20 07:47 Assessment and Plan Assessment: Dehydration with acute kidney injury, present on admission. Improved Metabolic encephalopathy, improved Possible dementia. Rule out normal pressure hydrocephalus. Hypothermic injury with possible elements of frostbite of the fingers with blistering. Improving History of atrial fibrillation Hypertension Hyperlipidemia Plan: This is a pleasant 85 years old male who presents with AMS. Patient mentation is improved and his more awake and interactive today. Neurology input is appreciated, they recommended inpatient lumbar puncture for possible NPH, consult IR for lumbar puncture per neurologist recommendation. Xarelto and aspirin on hold Labs and medication were reviewed.. Continue same treatment. Continue with symptomatic treatment. Resume home medication. Monitor lytes and vitals. DVT and GI prophylaxis. Further recommendations as per clinical course of the patient DVT prophylaxis: xarelto on hold for lumbar puncture GI Prophylaxis: Pepcid PT/OT: Subacute rehab upon discharge, discussed with patient and he agrees
[2020-11-20] MEDS: DOCUSATE 100 MG CAP PO SCH (09:18)
[2020-11-20] MEDS: LOSARTAN 50 MG TAB PO SCH ×2 (09:18→22:01)
[2020-11-20] MEDS: amLODIPine 10 MG TAB PO SCH (09:19)
[2020-11-20] MEDS: BRIMONIDINE TARTRATE 0.2% DROPS 5 ML BTL BOTH EYES SCH (09:19)
[2020-11-20] MEDS: ASPIRIN 81 MG PO SCH (09:19)
[2020-11-20] MEDS: carvediloL 12.5 MG TAB PO SCH ×2 (09:19→22:01)
[2020-11-20] MEDS: SILVER sulfADIAZINE Cream 400 GM 1 APPLIC APPLIC TOPICAL SCH (09:21)
--- NOTE | 2020-11-20 16:23 | PN ---
PROGRESS NOTE DATE OF SERVICE: 11/20/2020 This 85-year-old gentleman who was admitted with dehydration, acute renal failure, also had change in mental status. Patient being closely monitored. No chest pain. No palpitations. The patient underwent a lumbar puncture which showed rather unremarkable. was not reactive. The brain MRI was done as per Neurology recommendation and showed cerebral atrophy. The patient is confused. Past medical history reviewed. REVIEW OF SYSTEMS: Could not be taken. CURRENT MEDICATIONS: Reviewed and include: Tylenol, Norvasc, aspirin, Coreg. Aricept, Narcan. Doses reviewed. PHYSICAL EXAM: Patient is conscious, confused. Pulse 65. Blood pressure 93/50. Respirations 16. Temperature 97.5, pulse ox 98% on room air. HEENT: Conjunctivae normal. NECK: No JVD. CARDIOVASCULAR: S1, S2 muffled. RESPIRATORY SYSTEM: Breath sounds diminished at the bases. A few scattered rhonchi. ABDOMEN: Soft. NERVOUS SYSTEM: Diffusely weak. LABS: Hemoglobin 8.8, and other labs are noted. Cultures are negative so far. ASSESSMENT: 1. Change in mental status, possible acute metabolic encephalopathy. 2. Possible dementia with behavior changes. 3. Hypothermic injury with early frostbite. 4. History of atrial fibrillation. 5. Hypertension. 6. Hyperlipidemia. 7. Gait dysfunction. 8. History of coronary artery disease/stent. 9. FULL CODE. RECOMMENDATIONS AND DISCUSSION: This 85 -year-old gentleman presented with multiple complex medical issues, we will monitor the patient closely, continue the current medications, management and symptomatic treatment. Supplement vitamins. PT/OT evaluation, possible ECF rehab. Otherwise, closely follow with Neurology. Guarded prognosis. Further recommendations to follow. MMODL / IJN: [id number] / [facility]
[2020-11-20] MEDS: RIVAROXABAN 20 MG TAB PO SCH (17:02)
[2020-11-20] MEDS: PRAVASTATIN SODIUM 80 MG TAB PO SCH ×3 (20:42→21:58)
[2020-11-20] MEDS: DONEPEZIL 5 MG TAB PO SCH ×3 (20:43→21:59)
[2020-11-20] MEDS: LATANOPROST 0.005% OPHTH DROPS 2.5 ML BTL BOTH EYES SCH (20:43)
[2020-11-21] MEDS: carvediloL 12.5 MG TAB PO SCH ×2 (08:07→20:13)
[2020-11-21] MEDS: BRIMONIDINE TARTRATE 0.2% DROPS 5 ML BTL BOTH EYES SCH (08:07)
[2020-11-21] MEDS: LOSARTAN 50 MG TAB PO SCH ×2 (08:08→20:13)
[2020-11-21] MEDS: DOCUSATE 100 MG CAP PO SCH (08:08)
[2020-11-21] MEDS: amLODIPine 10 MG TAB PO SCH (08:08)
[2020-11-21] MEDS: SILVER sulfADIAZINE Cream 400 GM 1 APPLIC APPLIC TOPICAL SCH (08:08)
[2020-11-21] MEDS: ASPIRIN 81 MG PO SCH (08:08)
[2020-11-21] MEDS: FOLIC ACID 1 MG TAB PO SCH (11:01)
[2020-11-21] MEDS: MULTIVITAMINS, THERA 1 EACH TAB PO SCH (11:01)
[2020-11-21] MEDS: THIAMINE 100 MG TAB PO SCH (11:01)
--- NOTE | 2020-11-21 17:23 | PN ---
PROGRESS NOTE DATE OF SERVICE: 11/21/2020 This 85-year-old gentleman was admitted with dehydration. He has continue to be confused. Patient is less agitated and lumbar puncture was done which was resulted as normal findings. EXAM: The patient is conscious, confused. Pulse is 61, blood pressure 141/60, respiration 18, temperature 97.2, pulse ox 100 percent room air. HEENT: Conjunctivae normal. Oral mucosa moist. NECK: No jugular venous distention. No lymph node enlargement. CARDIOVASCULAR: S1, S2, muffled. No S3, no S4, RESPIRATORY: Diminished breath sounds at the bases. No rhonchi, no crackles. ABDOMEN: Soft, nontender. LEGS: No edema, no swelling. NERVOUS SYSTEM: No focal deficits. LABS: Hemoglobin 8.8. Other labs are not available. ASSESSMENT: 1. Change in mental status, possible acute metabolic encephalopathy. 2. Dementia with behavioral changes. 3. Anemia, normocytic anemia of chronic disease. 4. Hypothermic injury with early frostbite. 5. History of atrial fibrillation, chronic. 6. Hypertension. 7. Hyperlipidemia. 8. Gait dysfunction. 9. History of coronary artery disease, stent. 10.Gait dysfunction. 11.FULL CODE. RECOMMENDATIONS AND DISCUSSION: Continue current management and symptomatic treatment. Otherwise, PT/OT evaluation, possible ECF rehab. Continue the rest of medications. Prognosis guarded. Further recommendations to follow. MMODL / IJN: [id number] /
[2020-11-21] MEDS: RIVAROXABAN 20 MG TAB PO SCH (17:25)
[2020-11-21] MEDS: LATANOPROST 0.005% OPHTH DROPS 2.5 ML BTL BOTH EYES SCH (20:12)
[2020-11-22] MEDS: carvediloL 12.5 MG TAB PO SCH ×2 (09:07→21:05)
[2020-11-22] MEDS: ASPIRIN 81 MG PO SCH (09:07)
[2020-11-22] MEDS: BRIMONIDINE TARTRATE 0.2% DROPS 5 ML BTL BOTH EYES SCH (09:07)
[2020-11-22] MEDS: amLODIPine 10 MG TAB PO SCH (09:07)
[2020-11-22] MEDS: LOSARTAN 50 MG TAB PO SCH ×2 (09:08→23:11)
[2020-11-22] MEDS: SILVER sulfADIAZINE Cream 400 GM 1 APPLIC APPLIC TOPICAL SCH (09:08)
[2020-11-22] MEDS: DOCUSATE 100 MG CAP PO SCH (09:08)
[2020-11-22 09:24] LABS: Basophils # (A) 0.03 X 10*3/uL (0.00-0.10); Basophils % (A) 0.5 %; Eosinophils # (A) 0.44 X 10*3/uL (0.04-0.35); Eosinophils % (A) 7.4 %; HCT 26.7 % (39.6-50.0); HGB 8.9 g/dL (13.0-17.0); Lymphocytes # (A) 1.28 X 10*3/uL (0.90-5.00); Lymphocytes % (A) 21.5 %; MCH 32.6 pg (27.0-32.0); MCHC 33.3 g/dL (32.0-37.0); MCV 97.8 fL (80.0-97.0); Mean Platelet Volume 10.5 fL (9.5-12.2); Monocytes # (A) 0.55 X 10*3/uL (0.20-1.00); Monocytes % (A) 9.3 %; Neutrophils # (A) 3.63 X 10*3/uL (1.80-7.70); Neutrophils % (A) 61.1 %; Platelet Count 170 X 10*3/uL (140-440); RBC 2.73 X 10*6/uL (4.40-5.60); RDW 13.2 % (11.5-14.5); WBC 5.94 X 10*3/uL (4.50-10.00)
[2020-11-22 09:52] LABS: African American GFR (CKD) 93.1 (60.0-200.0); Anion Gap 3.3 mmol/L (4.00-12.00); BUN/Creat Ratio 26.25 Ratio (12.00-20.00); Carbon Dioxide 30.7 mmol/L (21.6-31.8); Non-African American GFR(CKD) 80.3 (60.0-200.0); Potassium 3.4 mmol/L (3.5-5.5)
[2020-11-22] MEDS ORDERED: Potassium Replacement Protocol 1 EACH MISC MISCELLANE PRN (11:10)
[2020-11-22] MEDS: MULTIVITAMINS, THERA 1 EACH TAB PO SCH (11:31)
[2020-11-22] MEDS: POTASSIUM CHLORIDE ER 20 MEQ TAB.ER PO SCH ×2 (11:31→13:30)
[2020-11-22] MEDS: FOLIC ACID 1 MG TAB PO SCH (11:32)
[2020-11-22] MEDS: THIAMINE 100 MG TAB PO SCH (11:32)
--- NOTE | 2020-11-22 16:34 | PN ---
PROGRESS NOTE DATE OF SERVICE: 11/22/2020 This 85-year-old gentleman who was admitted with change in mental status and confusion is improving significantly. The patient is much more alert today, less combative. No chest pain. No palpitations. Lumbar puncture final reports are pending. PHYSICAL EXAMINATION: The patient is conscious, confused, otherwise oriented x2. Pulse 63, blood pressure 105/59, respiration 17, temperature 97.8, pulse ox 98% on room air. HEENT: Conjunctivae normal. NECK: No jugular venous distention. CARDIOVASCULAR: S1, S2 muffled. RESPIRATORY: Breath sounds diminished at the bases. A few scattered rhonchi. ABDOMEN: Soft, nontender. LEGS: No edema. No swelling. NERVOUS SYSTEM: No focal deficits. LABS: WBC ntd, hemoglobin ntd, potassium is 3.4. ASSESSMENT: 1. Change in mental status possible acute metabolic encephalopathy. 2. Dementia with behavior changes. 3. Anemia, normocytic anemia of chronic disease. 4. Hypothermic injury with early frostbite. 5. History of atrial fibrillation chronic. 6. Hypertension. 7. Hyperlipidemia. 8. Gait dysfunction. 9. History of coronary artery disease, stent. 10.FULL CODE. RECOMMENDATIONS AND DISCUSSION: Recommend to continue current medications, continue with monitoring and symptomatic treatment. Otherwise at this time await for the final lumbar puncture reports and Neurology clearance. Otherwise, possible ECF rehab in the next 24 hours. Guarded prognosis. Further recommendations to follow. MMODL / IJN: [id number] / [facility]
[2020-11-22] MEDS: RIVAROXABAN 20 MG TAB PO SCH (16:50)
[2020-11-22] MEDS: LATANOPROST 0.005% OPHTH DROPS 2.5 ML BTL BOTH EYES SCH (21:04)
[2020-11-23] MEDS: DOCUSATE 100 MG CAP PO SCH (08:47)
[2020-11-23] MEDS: ASPIRIN 81 MG PO SCH (08:47)
[2020-11-23] MEDS: LOSARTAN 50 MG TAB PO SCH (08:48)
[2020-11-23] MEDS: amLODIPine 10 MG TAB PO SCH (08:48)
[2020-11-23] MEDS: SILVER sulfADIAZINE Cream 400 GM 1 APPLIC APPLIC TOPICAL SCH (08:48)
[2020-11-23] MEDS: carvediloL 12.5 MG TAB PO SCH (08:48)
[2020-11-23] MEDS: BRIMONIDINE TARTRATE 0.2% DROPS 5 ML BTL BOTH EYES SCH (08:55)
[2020-11-23 12:03] LABS: Basophils # (A) 0.03 X 10*3/uL (0.00-0.10); Basophils % (A) 0.5 %; Eosinophils # (A) 0.47 X 10*3/uL (0.04-0.35); Eosinophils % (A) 7.3 %; HCT 26.7 % (39.6-50.0); Lymphocytes # (A) 1.29 X 10*3/uL (0.90-5.00); Lymphocytes % (A) 20.1 %; MCHC 33.7 g/dL (32.0-37.0); MCV 97.8 fL (80.0-97.0); Monocytes # (A) 0.62 X 10*3/uL (0.20-1.00); Monocytes % (A) 9.6 %; Neutrophils # (A) 4.01 X 10*3/uL (1.80-7.70); Neutrophils % (A) 62.3 %; Platelet Count 208 X 10*3/uL (140-440); RBC 2.73 X 10*6/uL (4.40-5.60); RDW 13.5 % (11.5-14.5); WBC 6.43 X 10*3/uL (4.50-10.00)
[2020-11-23 12:11] LABS: African American GFR (CKD) 88.7 (60.0-200.0); Anion Gap 5.8 mmol/L (4.00-12.00); Calcium 8.4 mg/dL (8.7-10.3); Carbon Dioxide 28.2 mmol/L (21.6-31.8); Non-African American GFR(CKD) 76.5 (60.0-200.0); Potassium 4.2 mmol/L (3.5-5.5)
[2020-11-23] MEDS: MULTIVITAMINS, THERA 1 EACH TAB PO SCH (12:38)
[2020-11-23] MEDS: FOLIC ACID 1 MG TAB PO SCH (12:38)
[2020-11-23] MEDS: THIAMINE 100 MG TAB PO SCH (12:38)
[2020-11-23 13:15] VITALS: BP 111/59; PULSE 67; RESP 15; TEMP 98.1
--- NOTE | 2020-11-23 15:15 | P.DS ---
Providers Date of admission: 11/14/20 23:29 Expected date of discharge: 11/23/20 Attending physician: Caroline Ruiz MD Consults: 11/15/20 23:06 Consult Physician Routine Consulting Provider: Rosalio Hodges Consult Reason/Comments: AMS Do you want consulting provider notified?: Yes, Notify in am Primary care physician: Mike Conde Hospital Course: Final diagnosis Change in mental status possible acute metabolic encephalopathy Dementia with behavior changes Anemia, normocytic anemia of chronic disease Hypothermic injury with early frostbite History of atrial fibrillation chronic Hypertension Hyperlipidemia Gait dysfunction history of coronary artery disease, stent Full code Discharge disposition Patient is being discharged in a stable condition with guarded prognosis to [facility] for continued PT/OT therapy. Patient will follow-up with primary care provider Dr. Mike Conde [facility] Total time taken is greater than 35 minutes. Hospital course This is an 85-year-old male who was recently admitted with change in mental status and confusion and was being closely monitored. Mentation is improving and patient continues to be weak and was seen and evaluated by neurology recommending outpatient follow-up with neurologist. Patient was seen and evaluated by PT/OT therapy recommending subacute rehab for strength and mobilit y. Patient will be going to [facility] for continued therapy. Had Covid testing which was negative today. Currently no reports of chest pain, shortness of breath, or palpitations. Patient is afebrile. No reports of nausea or vomiting and patient is tolerating diet. Patient is being discharged to [facility] today. Guarded prognosis. On exam vital signs are stable. Temp is 98.1F, pulse is 67, respirations are 15, blood pressure is 111/59, oxygen saturation is 97% on room air. Cardio S1, S2 are muffled. Respiratory shows diminished breath sounds at the bases with no wheezing or rhonchi noted. Abdomen is soft and nontender. Nervous system shows mild diffuse weakness. Please refer to medication reconciliation sheet for a list of medications. Patient Condition at Discharge: Stable Plan - Discharge Summary New Discharge Prescriptions: New Donepezil [Aricept] 5 mg PO HS tab Folic Acid 1 mg PO DAILY@1200 tab Multivitamins, Thera [Multivitamin (formulary)] 1 each PO DAILY@1200 tab SILVER sulfADIAZINE Cream [Silvadene 1% Cream] 1 applic TOPICAL DAILY applic Acetaminophen Tab [Tylenol] 650 mg PO Q6HR PRN tab PRN Reason: Mild Pain Or Fever > 100.5 Continue Tiotropium 18 Mcg/Puff [Spiriva] 1 cap INHALATION RT-DAILY Budesonide [Pulmicort Flexhaler] 1 puff INHALATION RT-BID Rivaroxaban [Xarelto] 20 mg PO DAILY Pravastatin Sodium [Pravachol] 80 mg PO HS carvediloL [Carvedilol] 25 mg PO BID Aspirin 81 mg PO DAILY #30 tab Vitamin E 400 unit PO DAILY Ergocalciferol (Vitamin D2) [Vitamin D2 (2000 Iu)] 50 mcg PO DAILY Brimonidine Tartrate [Alphagan P 0.2% Ophth Soln] 1 drops BOTH EYES DAILY Losartan Potassium 50 mg PO BID amLODIPine [Norvasc] 10 mg PO DAILY Latanoprost [Xalatan 0.005%] 1 drop BOTH EYES HS Polyethylene Glycol 3350 [Miralax] 17 gm PO DAILY PRN PRN Reason: Constipation Docusate [Colace] 100 mg PO DAILY Discharge Medication List Budesonide [Pulmicort Flexhaler] 1 puff INHALATION RT-BID 11/14/17 [History] Pravastatin Sodium [Pravachol] 80 mg PO HS 11/14/17 [History] Rivaroxaban [Xarelto] 20 mg PO DAILY 11/14/17 [History] Tiotropium 18 Mcg/Puff [Spiriva] 1 cap INHALATION RT-DAILY 11/14/17 [History] carvediloL [Carvedilol] 25 mg PO BID 11/14/17 [History] Aspirin 81 mg PO DAILY #30 tab 11/19/17 [Rx] Brimonidine Tartrate [Alphagan P 0.2% Ophth Soln] 1 drops BOTH EYES DAILY 11/15/20 [History] Docusate [Colace] 100 mg PO DAILY 11/15/20 [History] Ergocalciferol (Vitamin D2) [Vitamin D2 (2000 Iu)] 50 mcg PO DAILY 11/15/20 [History] Latanoprost [Xalatan 0.005%] 1 drop BOTH EYES HS 11/15/20 [History] Losartan Potassium 50 mg PO BID 11/15/20 [History] Polyethylene Glycol 3350 [Miralax] 17 gm PO DAILY PRN 11/15/20 [History] Vitamin E 400 unit PO DAILY 11/15/20 [History] amLODIPine [Norvasc] 10 mg PO DAILY 11/15/20 [History] Acetaminophen Tab [Tylenol] 650 mg PO Q6HR PRN tab 11/23/20 [Rx] Donepezil [Aricept] 5 mg PO HS tab 11/23/20 [Rx] Folic Acid 1 mg PO DAILY@1200 tab 11/23/20 [Rx] Multivitamins, Thera [Multivitamin (formulary)] 1 each PO DAILY@1200 tab 11/23/20 [Rx] SILVER sulfADIAZINE Cream [Silvadene 1% Cream] 1 applic TOPICAL DAILY applic 11/23/20 [Rx] Follow up Appointment(s)/Referral(s): Mike Conde MD [Primary Care Provider] - 1-2 days Patient Instructions/Handouts: Dementia (ED), Altered Mental Status (ED) Activity/Diet/Wound Care/Special Instructions: Patient is going to ECF Activity as tolerated Continue regular diet Outpatient follow-up with neurology Discharge Disposition: TRANSFER TO SNF/ECF
== END 2020-11-23 16:30 | DRG 71 ==
LOC: EC 21:05 → 5NMEDONC 23:29
PROVIDERS: ADMIT Internal Medicine; ATTEND Internal Medicine
PROC: 009U3ZX Drainage of Spinal Canal, Percutaneous Approach, Diagnostic (ICD-10-PCS; principal; 2020-11-19)
DX: G93.41 Metabolic encephalopathy (principal); I48.20 Chronic atrial fibrillation, unspecified; N17.9 Acute kidney failure, unspecified; F03.91 Unspecified dementia, unspecified severity, with behavioral disturbance; G91.9 Hydrocephalus, unspecified; E78.5 Hyperlipidemia, unspecified; E86.0 Dehydration; H91.90 Unspecified hearing loss, unspecified ear; I12.9 Hypertensive chronic kidney disease with stage 1 through stage 4 chronic kidney disease, or unspecified chronic kidney disease; I25.10 Atherosclerotic heart disease of native coronary artery without angina pectoris; K40.90 Unilateral inguinal hernia, without obstruction or gangrene, not specified as recurrent; R68.0 Hypothermia, not associated with low environmental temperature; Z20.822 Contact with and (suspected) exposure to COVID-19; D63.8 Anemia in other chronic diseases classified elsewhere; N18.2 Chronic kidney disease, stage 2 (mild); X31.XXXA Exposure to excessive natural cold, initial encounter; Z79.01 Long term (current) use of anticoagulants; Z79.82 Long term (current) use of aspirin; Z79.899 Other long term (current) drug therapy; Z82.49 Family history of ischemic heart disease and other diseases of the circulatory system; Z95.5 Presence of coronary angioplasty implant and graft
CPT/HCPCS: 36415; 62328; 70450; 70553; 71046; 80048; 80053; 81001; 82607; 82746; 82945; 84132; 84157; 84425; 84443; 85025; 85610; 85730; 86780; 87070; 87205; 87252; 87496; 87498; 87529; 87635; 87798; 88108; 89050; 93306; 93880; 95816; 96360; 96361; 99285

== ENCOUNTER 2021-01-23 08:52 | Inpatient (IN) | payer MEDICARE ==
[2021-01-23] MEDS ORDERED: LIDOCAINE 1%-EPI 1:100,000 20 ML VIAL SQ STA (09:49)
--- NOTE | 2021-01-23 09:58 | ED ---
Fall HPI - General Chief Complaint: Fall Stated Complaint: Fall/Head Injury Time Seen by Provider: 01/23/21 08:54 Source: patient, EMS Mode of arrival: EMS - History of Present Illness Initial Comments: Patient is an 85-year-old male with history of dementia, A. fib, hypertension, presenting to the emergency department via EMS after he fell outside today. She does not speak very good Citizen [place], there is no family in the room to help however patient states he was outside and lost his footing, tripped and fell backwards. Patient denies loss of consciousness, he does have a hematoma on the back of his head. He is on blood thinners, takes aspirin and Xarelto daily. He states he scraped both of his elbows but no pain anywhere else on his body. Denies any chest pain or shortness of breath, no nausea or vomiting. He denies any changes in vision. He has no further complaints. Upon arrival to the ER, his vital signs are stable. - Related Data Home Medications Medication Instructions Recorded Confirmed Budesonide [Pulmicort Flexhaler] 1 puff INHALATION RT-BID 11/14/17 01/23/21 Pravastatin Sodium [Pravachol] 80 mg PO HS 11/14/17 01/23/21 Rivaroxaban [Xarelto] 20 mg PO DAILY 11/14/17 01/23/21 Tiotropium 18 Mcg/Puff [Spiriva] 1 cap INHALATION RT-DAILY 11/14/17 01/23/21 carvediloL [Carvedilol] 25 mg PO BID@0900,1700 11/14/17 01/23/21 Brimonidine Tartrate [Alphagan P 1 drop BOTH EYES DAILY 11/15/20 01/23/21 0.2% Ophth Soln] Docusate [Colace] 100 mg PO DAILY 11/15/20 01/23/21 Ergocalciferol (Vitamin D2) 50 mcg PO DAILY@1700 11/15/20 01/23/21 [Vitamin D2 (2000 Iu)] Latanoprost [Xalatan 0.005%] 1 drop BOTH EYES HS 11/15/20 01/23/21 Losartan Potassium 50 mg PO BID@0900,1700 11/15/20 01/23/21 Polyethylene Glycol 3350 [Miralax] 17 gm PO DAILY PRN 11/15/20 01/23/21 Vitamin E 400 unit PO DAILY@1700 11/15/20 01/23/21 amLODIPine [Norvasc] 10 mg PO DAILY 11/15/20 01/23/21 Aspirin 81 mg PO DAILY@1700 01/23/21 01/23/21 Multivitamins, Thera [Multivitamin 1 tab PO DAILY@1200 01/23/21 01/23/21 (formulary)] Previous Rx's Medication Instructions Recorded Acetaminophen Tab [Tylenol] 650 mg PO Q6HR PRN tab 11/23/20 Donepezil [Aricept] 5 mg PO HS tab 11/23/20 Folic Acid 1 mg PO DAILY@1200 tab 11/23/20 Allergies Allergy/AdvReac Type Severity Reaction Status Date / Time No Known Allergies Allergy Verified 01/23/21 09:52 Review of Systems ROS Statement: Those systems with pertinent positive or pertinent negative responses have been documented in the HPI. ROS Other: All systems not noted in ROS Statement are negative. Past Medical History Past Medical History: Atrial Fibrillation, Hyperlipidemia, Hypertension History of Any Multi-Drug Resistant Organisms: None Reported Past Surgical History: Heart Catheterization With Stent Additional Past Surgical History / Comment(s): nasal surgery as a young adult, per son Past Anesthesia/Blood Transfusion Reactions: No Reported Reaction Date of Last Stent Placement:: 2014 Past Psychological History: No Psychological Hx Reported Smoking Status: Never smoker Past Alcohol Use History: Rare Past Drug Use History: None Reported - Past Family History Father History Unknown: Yes Additional Family Medical History / Comment(s): of TB Mother Family Medical History: Myocardial Infarction (ME) Brother(s) Additional Family Medical History / Comment(s): heart problems General Exam - General Exam Comments Initial Comments: GENERAL: Patient is well-developed and well-nourished. Patient is nontoxic and in no acute distress. HEAD: Patient has a large hematoma to the posterior head, there is a laceration on this, mild bleeding. He also has an abrasion on the top of his head, no active bleeding. Signs of basal skull fracture. EYES: Pupils equal round and reactive to light, extraocular movements intact, sclera anicteric, conjunctiva are normal. Eyelids were unremarkable. ENT: TMs normal, nares patent, oropharynx clear without exudates. Moist mucous membranes. NECK: Normal range of motion, supple without lymphadenopathy or JVD. No midline tenderness. LUNGS: Unlabored respirations. Breath sounds clear to auscultation bilaterally and equal. No wheezes rales or rhonchi. HEART: Regular rate and rhythm without murmurs, rubs or gallops. ABDOMEN: Soft, nontender, normoactive bowel sounds. No guarding, no rebound. No masses appreciated. : Deferred MUSCULOSKELETAL: Normal extremities with adequate strength and normal range of motion, no pitting or edema. No clubbing or cyanosis. No pain with palpation of all 4 extremities. NEUROLOGICAL: Patient is alert and oriented x 2, his baseline. Motor and sensory are also intact. Cranial nerves II through XII grossly intact. Symmetrical smile. Nor mal speech. Patient unable to ambulate without assistance. PSYCH: Normal mood, normal affect. SKIN: Warm, Dry, normal turgor, no rashes. Patient has a large, 3 cm in diameter hematoma over the posterior scalp, there is a 3 cm laceration on top of this hematoma, there is some mild active bleeding, it does slow down with pressure. He also has small skin tears to both elbows, no bleeding from these wounds. He has a small abrasion on the top of the right shoulder, no active bleeding. Limitations: language barrier Course Vital Signs 01/23/21 01/23/21 01/23/21 09:02 11:30 12:00 Temperature 97.8 F Pulse Rate 68 71 74 Respiratory 16 16 15 Rate Blood Pressure 104/71 99/64 99/64 O2 Sat by Pulse 98 95 100 Oximetry 01/23/21 12:35 Temperature 98.5 F Pulse Rate 73 Respiratory 18 Rate Blood Pressure 108/65 O2 Sat by Pulse 100 Oximetry Procedures - Laceration Laceration #1 Consent Obtained: verbal consent Indication: laceration Site: scalp (Posterior scalp, hematoma) Size (cm): 3 Description: linear Depth: simple, single layer Anesthetic Used: lidocaine 1%, with epi Anesthesia Technique: local infiltration Amount (mls): 2 Pre-repair: irrigated extensively Type of Sutures: nylon Size of Sutures: 4-0 Number of Sutures: 6 Technique: simple, interrupted Patient Tolerated Procedure: well Medical Decision Making - Medical Decision Making Patient is an 85-year-old male with history of dementia, A. fib, presenting via EMS after he fell at his home outside in the yard. He did not lose consciousness. He is on aspirin and Xarelto daily. His initial vitals are nor mal. Patient's CT of brain and C-spine showed no acute abnormalities. Patient's laceration was repaired with 6, 4-0 sutures. There is no active bleeding at this time. I did place a bandage. Patient was stood up and tried to ambulate however he is very dizzy and unable to take steps on his own. The patient's grandson is here at bedside and states he normally ambulates on his own without assistance. Patient's blood pressure also dropped in the 80s upon standing. Patient will be admitted for observation. Patient accepted by Dr. Humphreys's group. I did order blood work, chest x-ray and EKG. EKG shows normal sinus rhythm, no acute process. Chest x-ray shows chronic changes, suspect new bilateral multifocal opacities, correlate to exclude COVID-19. His rapid Covid test is negative. Labs show a hemoglobin of 7.6. Rest of labs are stable, stool occult is negative. Case discussed with Dr. Robles. - Lab Data Result diagrams: 01/23/21 11:27 01/23/21 11:27 - EKG Data EKG Comments: Normal sinus rhythm, normal ECG, no signs of acute ischemia. Ventricular rate 71, PA interval 134, QTc 412. Disposition Clinical Impression: Fall, Hematoma of occipital surface of head, Dizzy, Unable to walk, Weakness Disposition: ADMITTED IP TO THIS HOSP Condition: Stable Is patient prescribed a controlled substance at d/c from ED?: No Decision Date: 01/23/21 Decision Time: 11:23
--- NOTE | 2021-01-23 10:04 | CT ---
EXAMINATION TYPE: CT brain cspine wo con DATE OF EXAM: 01/23/[address] 2018. COMPARISON: CT brain November 14, 2020. HISTORY: Fall, head laceration back of head, neck pain. CT DLP: 1335.1 mGycm. Automated Exposure Control for Dose Reduction was Utilized. TECHNIQUE: CT scan of the head and cervical spine are performed without contrast. FINDINGS: There is no acute intracranial hemorrhage or midline shift identified. Persistent mild to moderate diffuse ventricular and sulcal prominence greatest over bilateral frontal and temporal lobe s. Mild low attenuation in the periventricular white matter. Calcification along the interhemispheri c fissure again seen. There is moderate size low left occipital acute scalp hematoma centered axial i mage 19. The calvarium is intact. Scleral calcification bilateral globes redemonstrated. Moderate muc osal thickening in the bilateral maxillary sinuses. Cervical spine is visualized in its entirety from C1 through upper thoracic levels and redemonstrates some reversal of normal cervical curvature without evidence of acute fracture or dislocation. There is multilevel spondylolisthesis or grade 1 anterolisthesis C2 on C3 and grade 1 retrolisthesis C3 on C4, C4 on C5, and C5 on C6 redemonstrated. Prevertebral soft tissue appears within normal limits. Th e C1-C2 articulation is within normal limits on the coronal images. Vertebral body heights are maint ained. There is moderate multilevel disc space narrowing C3-C4 through C6-C7 levels redemonstrated. P osterior spur disc complexes efface the anterior thecal sac at this level and sagittal and axial imag es. Axial images show additional set of uncovertebral facet degenerative changes contributing to bila teral multilevel neural foraminal narrowing. Thyroid gland is within normal limits. Lung apices show partial visualization of a small left pleural effusion with anterior and apical scarring in the left lung and few subcentimeter nodular opacities in the right lung. IMPRESSION: 1. There is no acute fracture or dislocation evident in the cervical spine. 2. No acute intracranial hemorrhage or midline shift is seen. Moderate size acute occipital hematoma.
[2021-01-23] MEDS ORDERED: SODIUM CHLORIDE 0.9% 1,000 ML IV STA (11:07)
[2021-01-23] MEDS ORDERED: NALOXONE 0.4 MG/ML 1 ML VIAL IV PRN (11:16)
[2021-01-23] MEDS ORDERED: ONDANSETRON 4 MG/2 ML VIAL IVP PRN (11:16)
[2021-01-23] MEDS: SODIUM CHLORIDE 0.9% 1,000 ML IV SCH (11:34)
[2021-01-23 11:41] LABS: Basophils % (A) 0 %; Eosinophils # (A) 0.1 k/uL (0-0.7); Eosinophils % (A) 2 %; HCT 23.8 % (39.0-53.0); HGB 7.6 gm/dL (13.0-17.5); Lymphocytes # (A) 0.7 k/uL (1.0-4.8); Lymphocytes % (A) 8 %; MCH 32.1 pg (25.0-35.0); MCHC 31.9 g/dL (31.0-37.0); MCV 100.4 fL (80.0-100.0); Macrocytosis Slight; Mean Platelet Volume 8.1; Monocytes # (A) 0.6 k/uL (0-1.0); Monocytes % (A) 7 %; Neutrophils # (A) 7.2 k/uL (1.3-7.7); Neutrophils % (A) 82 %; Platelet Count 160 k/uL (150-450); RBC 2.37 m/uL (4.30-5.90); RDW 14.1 % (11.5-15.5); WBC 8.7 k/uL (3.8-10.6)
[2021-01-23 11:49] LABS: INR 1.8 (<1.2); Partial Thromboplastin Time 27.3 sec (22.0-30.0); Prothrombin Time 17.5 sec (9.0-12.0)
[2021-01-23 11:53] LABS: Calcium 8.5 mg/dL (8.4-10.2); Potassium 4.3 mmol/L (3.5-5.1); Total Bilirubin 0.7 mg/dL (0.2-1.3); Total Protein 5.3 g/dL (6.3-8.2)
[2021-01-23] MEDS ORDERED: PANTOPRAZOLE 40 MG/10 ML VIAL IVP STA (12:06)
[2021-01-23] MEDS: DONEPEZIL 5 MG TAB PO SCH ×2 (12:18→21:14)
--- NOTE | 2021-01-23 12:23 | XR ---
EXAMINATION TYPE: XR chest 2V DATE OF EXAM: 01/23/2021 COMPARISON: Chest x-ray November 14, 2020 HISTORY: Fall history with chest pain TECHNIQUE: Frontal and lateral views of the chest are obtained. FINDINGS: The osseous structures remain demineralized. Stable mild cardiomegaly with atherosclerotic aorta. Background chronic parenchymal changes with new areas of increased opacity in the periphery of the left mid and lower lung. Some new patchy opacity right upper and central lower lung. New small t o tiny left pleural effusion. IMPRESSION: Chronic changes and cardiomegaly with small to tiny left pleural effusion. Suspect new bilateral multifocal opacities, correlate to exclude covid-19 infection in current environment.
[2021-01-23] MEDS ORDERED: polyethylene glycoL 3350 17 GM POWD.PACK PO PRN (16:16)
[2021-01-23] MEDS ORDERED: IPRATROPIUM-ALBUTEROL 3 ML NEB INHALATION PRN (16:17)
[2021-01-23] MEDS ORDERED: NON FORMULARY DRUG (Ergocalciferol (Vitamin D2) [Vitamin D2 (2000 Iu)] 50 MCG Tablet) PO SCH (17:00)
[2021-01-23 17:37] LABS: Basophils % (A) 0 %; Eosinophils % (A) 1 %; HCT 20.2 % (39.0-53.0); Lymphocytes # (A) 0.8 k/uL (1.0-4.8); Lymphocytes % (A) 15 %; MCH 32.1 pg (25.0-35.0); MCHC 32.3 g/dL (31.0-37.0); MCV 99.1 fL (80.0-100.0); Mean Platelet Volume 8.1; Monocytes # (A) 0.4 k/uL (0-1.0); Monocytes % (A) 7 %; Neutrophils # (A) 4.2 k/uL (1.3-7.7); Neutrophils % (A) 75 %; Platelet Count 158 k/uL (150-450); RBC 2.04 m/uL (4.30-5.90); RDW 14.1 % (11.5-15.5); WBC 5.5 k/uL (3.8-10.6)
[2021-01-23 17:41] LABS: HGB 6.5 gm/dL (13.0-17.5)
[2021-01-23] MEDS: VITAMIN E (DL,TOCOPHERYL ACET) 400 UNIT CAP PO SCH (18:23)
[2021-01-23] MEDS: CHOLECALCIFEROL 25 MCG (1000 IU) TABLET PO SCH (18:23)
[2021-01-23] MEDS: ACETAMINOPHEN TAB 325 MG TAB PO PRN (19:03)
[2021-01-23] MEDS: PRAVASTATIN SODIUM 80 MG TAB PO SCH (21:14)
[2021-01-23 22:50] LABS: HCT 21.9 % (39.0-53.0); HGB 7.2 gm/dL (13.0-17.5); MCH 32.5 pg (25.0-35.0); MCV 98.5 fL (80.0-100.0); Macrocytosis Slight; Mean Platelet Volume 8.5; Platelet Count 140 k/uL (150-450); RBC 2.22 m/uL (4.30-5.90); RDW 15.2 % (11.5-15.5); WBC 4.6 k/uL (3.8-10.6)
[2021-01-23] MEDS: LATANOPROST 0.005% OPHTH DROPS 2.5 ML BTL BOTH EYES SCH (22:57)
[2021-01-23] MEDS: FLUTICASONE 110 MCG INHALER INHALATION SCH (23:00)
[2021-01-23 23:03] LABS: ALT 16 U/L (4-49); AST 29 U/L (17-59); African American GFR (CKD) 66 (>60 ml/min/1.73 sqM); Albumin 2.7 g/dL (3.5-5.0); Albumin/Globulin Ratio 1.2; Alkaline Phosphatase 48 U/L (38-126); Anion Gap 5 mmol/L; Blood Urea Nitrogen 28 mg/dL (9-20); Calcium 8.1 mg/dL (8.4-10.2); Carbon Dioxide 25 mmol/L (22-30); Chloride 105 mmol/L (98-107); Globulin 2.2 g/dL; Glucose 148 mg/dL (74-99); Non-African American GFR(CKD) 57 (>60 ml/min/1.73 sqM); Potassium 3.8 mmol/L (3.5-5.1); Sodium 135 mmol/L (137-145); Total Bilirubin 0.9 mg/dL (0.2-1.3); Total Protein 4.9 g/dL (6.3-8.2)
--- NOTE | 2021-01-23 23:18 | P.HPIM ---
History of Present Illness H&P Date: 01/23/21 Chief Complaint: Fall Patient is a 85-year-old male with a known history of paroxysmal atrial fibrillation on anticoagulation with Xarelto, hypertension, hyperlipidemia, dementia, coronary disease with history of stent placement and asthma was brought to the hospital status post fall. Patient apparently fell outside while he was climbing down at the last foot of the staircase. Patient's grandson is at bedside. Currently patient cannot provide any history. According to the patient he lost his footing and tripped and fell backwards. Patient had hematoma on the back of the head and was bleeding as well. Patient is currently on Xarelto, aspirin is in. Patient denied any loss of consciousness. No chest pain or shortness breath. No nausea vomiting. No recent illnesses. No fever no chills. No cough production. Upon arrival to the ER blood pressure 99/64 pulse is 71 respirations 16 pulse ox 95% on room air patient has been afebrile. CT head and cervical spine showed there is no fracture or dislocation evident in the cervical spine. No acute intracranial hemorrhage or midline shift is seen. Moderate size acute occipital hematoma. Chest x-ray showed chronic changes and cardiomegaly with small to tiny pleural effusion. Suspect new bilateral multifocal opacities correlate to exclude COVID-19 infection in current environment. EKG showed normal sinus rhythm Laboratory showed WBC 8.7 hemoglobin 7.7 and dropped down to 6.5 MCV 100.4 RDW 14.1 and platelets 160 Lymphocyte 0.7 INR 1.8 Sodium 136 potassium 4.3 chloride 104 BUN 29 and creatinine 1.1 FOBT negative and coronavirus PCR not detected. Patient has admitted to hospital from 11/14/2020 to 11/23/20. Patient was recently admitted to the hospital due to confusion and complete neurologic work-up, slow stroke work-up was done including MRI of the brain, EEG, 2D echocardiogram and large volume spinal tap did not produce any improvement in his gait. Rule out normal pressure hydrocephalus. Review of Systems Complete review of systems could not be obtained from the patient Past Medical History Past Medical History: Atrial Fibrillation, Hyperlipidemia, Hypertension History of Any Multi-Drug Resistant Organisms: None Reported Past Surgical History: Heart Catheterization With Stent Additional Past Surgical History / Comment(s): nasal surgery as a young adult, per son Past Anesthesia/Blood Transfusion Reactions: No Reported Reaction Date of Last Stent Placement:: 2014 Past Psychological History: No Psychological Hx Reported Smoking Status: Never smoker Past Alcohol Use History: Rare Past Drug Use History: None Reported - Past Family History Father History Unknown: Yes Additional Family Medical History / Comment(s): of TB Mother Family Medical History: Myocardial Infarction ([place]) Brother(s) Additional Family Medical History / Comment(s): heart problems Medications and Allergies Home Medications Medication Instructions Recorded Confirmed Type Budesonide [Pulmicort Flexhaler] 1 puff INHALATION RT-BID 11/14/17 01/23/21 History Pravastatin Sodium [Pravachol] 80 mg PO HS 11/14/17 01/23/21 History Rivaroxaban [Xarelto] 20 mg PO DAILY 11/14/17 01/23/21 History Tiotropium 18 Mcg/Puff [Spiriva] 1 cap INHALATION RT-DAILY 11/14/17 01/23/21 History carvediloL [Carvedilol] 25 mg PO BID@0900,1700 11/14/17 01/23/21 History Brimonidine Tartrate [Alphagan P 1 drop BOTH EYES DAILY 11/15/20 01/23/21 History 0.2% Ophth Soln] Docusate [Colace] 100 mg PO DAILY 11/15/20 01/23/21 History Ergocalciferol (Vitamin D2) 50 mcg PO DAILY@1700 11/15/20 01/23/21 History [Vitamin D2 (2000 Iu)] Latanoprost [Xalatan 0.005%] 1 drop BOTH EYES HS 11/15/20 01/23/21 History Losartan Potassium 50 mg PO BID@0900,1700 11/15/20 01/23/21 History Polyethylene Glycol 3350 [Miralax] 17 gm PO DAILY PRN 11/15/20 01/23/21 History Vitamin E 400 unit PO DAILY@1700 11/15/20 01/23/21 History amLODIPine [Norvasc] 10 mg PO DAILY 11/15/20 01/23/21 History Acetaminophen Tab [Tylenol] 650 mg PO Q6HR PRN tab 11/23/20 01/23/21 Rx Donepezil [Aricept] 5 mg PO HS tab 11/23/20 01/23/21 Rx Folic Acid 1 mg PO DAILY@1200 tab 11/23/20 01/23/21 Rx Aspirin 81 mg PO DAILY@1700 01/23/21 01/23/21 History Multivitamins, Thera [Multivitamin 1 tab PO DAILY@1200 01/23/21 01/23/21 History (formulary)] Allergies Allergy/AdvReac Type Severity Reaction Status Date / Time No Known Allergies Allergy Verified 01/23/21 09:52 Physical Exam Vitals: Vital Signs Temp Pulse Resp BP Pulse Ox 01/23/21 15:00 73 15 109/63 99 01/23/21 14:00 98.8 F 71 14 102/62 99 01/23/21 13:00 72 16 108/65 100 01/23/21 12:35 98.5 F 73 18 108/65 100 01/23/21 12:00 74 15 99/64 100 01/23/21 11:30 71 16 99/64 95 01/23/21 09:02 97.8 F 68 16 104/71 98 Intake and Output 01/23/21 01/23/21 01/23/21 06:59 14:59 22:59 Other: Weight 71.214 kg PHYSICAL EXAMINATION: Patient is lying in the bed comfortably, no acute distress, awake alert but not oriented.. HEENT: Normocephalic. Occipital hematoma. With the blood noted on the dressing. Neck is supple. Pupils reactive. Nostrils clear. Oral cavity is moist. Ears reveal no drainage. Neck reveals no JVD, carotid bruits, or thyromegaly. CHEST EXAMINATION: Trachea is central. Symmetrical expansion. Lung caro clear to auscultation and percussion. CARDIAC: Normal S1, S2 with no gallops. No murmurs ABDOMEN: Soft. Bowel sounds normal. No organomegaly. No abdominal bruits. Extremities: reveal no edema. No clubbing or cyanosis Neurologically awake, alert, oriented x1 with well-coordinated movements. No focal deficits noted Skin: No rash or skin lesions. Psychiatric: Coperative. Musculoskeletal: No joint swelling or deformity. Results CBC & Chem 7: 01/23/21 22:27 01/23/21 22:27 Labs: Abnormal Lab Results - Last 24 Hours (Table) 01/23/21 01/23/21 01/23/21 Range/Units 11:27 11:27 11:27 RBC 2.37 L (4.30-5.90) m/uL Hgb 7.6 L (13.0-17.5) gm/dL Hct 23.8 L (39.0-53.0) % MCV 100.4 H (80.0-100.0) fL Lymphocytes # 0.7 L (1.0-4.8) k/uL PT 17.5 H (9.0-12.0) sec INR 1.8 H (<1.2) Sodium 136 L (137-145) mmol/L BUN 29 H (9-20) mg/dL Glucose 132 H (74-99) mg/dL Total Protein 5.3 L (6.3-8.2) g/dL Albumin 3.0 L (3.5-5.0) g/dL Assessment and Plan Assessment: Occipital moderate-sized hematoma status post mechanical fall as per patient. Mild acute blood loss anemia Paroxysmal atrial fibrillation on anticoagulation with Xarelto Hypovolemic hyponatremia Microcytic anemia Multifocal infiltrates on chest x-ray. COVID-19 negative. Dementia. Parkinsonian features. Coronary artery disease history of stent placement Hypertension Hyperlipidemia Asthma/COPD no prior history of smoking DVT prophylaxis SCDs. Plan: Patient sustained a fall likely mechanical as per patient. No complaints of dizziness or lightheadedness. Patient was slightly hypotensive on admission. Improved currently. COVID-19 PCR not detected. Continue to follow inflammatory markers. Monitor H&H.Patient is currently maintaining sinus rhythm. TSH B12 and folate levels will be ordered. Transfuse 1 unit of PRBC and follow- up closely. Will hold Xarelto at this time and will start back once hemoglobin is stable. Continue to follow closely and further recommendations based on the clinical course. Time with Patient: Greater than 30
[2021-01-24] MEDS: SODIUM CHLORIDE 0.9% 1,000 ML IV SCH ×2 (01:50→17:48)
[2021-01-24] MEDS: BRIMONIDINE TARTRATE 0.2% DROPS 5 ML BTL BOTH EYES SCH (07:46)
[2021-01-24] MEDS: FLUTICASONE 110 MCG INHALER INHALATION SCH ×2 (09:15→22:16)
[2021-01-24 11:10] LABS: C Reactive Protein 1.3 mg/dL (0.0-0.8)
[2021-01-24] MEDS: MULTIVITAMINS, THERA 1 EACH TAB PO SCH (12:00)
[2021-01-24] MEDS: FOLIC ACID 1 MG TAB PO SCH (12:00)
[2021-01-24] MEDS: CHOLECALCIFEROL 25 MCG (1000 IU) TABLET PO SCH (17:47)
[2021-01-24] MEDS: VITAMIN E (DL,TOCOPHERYL ACET) 400 UNIT CAP PO SCH (17:48)
[2021-01-24] MEDS: DOCUSATE 100 MG CAP PO SCH (21:41)
[2021-01-24] MEDS: PRAVASTATIN SODIUM 80 MG TAB PO SCH (21:42)
[2021-01-24] MEDS: LATANOPROST 0.005% OPHTH DROPS 2.5 ML BTL BOTH EYES SCH (21:43)
[2021-01-24] MEDS: DONEPEZIL 5 MG TAB PO SCH (22:26)
--- NOTE | 2021-01-24 23:29 | P.PN ---
Subjective Progress Note Date: 01/24/21 Principal diagnosis: Occipital moderate-sized hematoma status post mechanical fall as per patient. Mild acute blood loss anemia Paroxysmal atrial fibrillation on anticoagulation with Xarelto-on hold Patient is a 85-year-old male with a known history of paroxysmal atrial fibrilla tion on anticoagulation with Xarelto, hypertension, hyperlipidemia, dementia, coronary disease with history of stent placement and asthma was brought to the hospital status post fall. Patient apparently fell outside while he was climbing down at the last foot of the staircase. Patient's grandson is at bedside. Currently patient cannot provide any history. According to the patient he lost his footing and tripped and fell backwards. Patient had hematoma on the back of the head and was bleeding as well. Patient is currently on Xarelto, aspirin is in. Patient denied any loss of consciousness. No chest pain or shortness breath. No nausea vomiting. No recent illnesses. No fever no chills. No cough production. Upon arrival to the ER blood pressure 99/64 pulse is 71 respirations 16 pulse ox 95% on room air patient has been afebrile. CT head and cervical spine showed there is no fracture or dislocation evident in the cervical spine. No acute intracranial hemorrhage or midline shift is seen. Moderate size acute occipital hematoma. Chest x-ray showed chronic changes and cardiomegaly with small to tiny pleural effusion. Suspect new bilateral multifocal opacities correlate to exclude COVID-19 infection in current environment. EKG showed normal sinus rhythm Laboratory showed WBC 8.7 hemoglobin 7.7 and dropped down to 6.5 MCV 100.4 RDW 14.1 and platelets 160 Lymphocyte 0.7 INR 1.8 Sodium 136 potassium 4.3 chloride 104 BUN 29 and creatinine 1.1 FOBT negative and coronavirus PCR not detected. Patient has admitted to hospital from 11/14/2020 to 11/23/20. Patient was recently admitted to the hospital due to confusion and complete neurologic work-up, slow stroke work-up was done including MRI of the brain, EEG, 2D echocardiogram and large volume spinal tap did not produce any improvement in his gait. Rule out normal pressure hydrocephalus. 01/24/2021 Patient is more alert and oriented today. Denies any complaints of chest pain or shortness of. No fever no chills. Denies any dizziness or lightheadedness. Hemoglobin is 7.2 today. BUN 28 and creatinine 1.15 No complaints of nausea. Advance oral diet. Follow-up H&H tomorrow. PT OT will be consulted. Xarelto is on hold. Current medications reviewed. Objective - Vital Signs Vital signs: Vital Signs Temp 99.1 F 01/24/21 18:15 Pulse 75 01/24/21 18:15 Resp 18 01/24/21 18:15 BP 145/74 01/24/21 18:15 Pulse Ox 99 01/24/21 18:15 Intake & Output 01/24/21 01/24/21 01/25/21 06:59 18:59 06:59 Intake Total 310 Balance 310 Intake: Blood Product 310 Rc As-1 Unit 310 [id number] Other: Voiding Method Diaper # Voids 1 2 - Exam PHYSICAL EXAMINATION: Patient is lying in the bed comfortably, no acute distress, awake alert but not oriented.. HEENT: Normocephalic. Occipital hematoma. With the blood noted on the dressing. Neck is supple. Pupils reactive. Nostrils clear. Oral cavity is moist. Ears reveal no drainage. Neck reveals no JVD, carotid bruits, or thyromegaly. CHEST EXAMINATION: Trachea is central. Symmetrical expansion. Lung caro clear to auscultation and percussion. CARDIAC: Normal S1, S2 with no gallops. No murmurs ABDOMEN: Soft. Bowel sounds normal. No organomegaly. No abdominal bruits. Extremities: reveal no edema. No clubbing or cyanosis Neurologically awake, alert, oriented x1 with well-coordinated movements. No focal deficits noted Skin: No rash or skin lesions. Psychiatric: Coperative. Musculoskeletal: No joint swelling or deformity. - Labs CBC & Chem 7: 01/23/21 22:27 01/23/21 22:27 Labs: Abnormal Lab Results - Last 24 Hours (Table) 01/23/21 01/23/21 01/23/21 Range/Units 11:24 22:27 22:27 RBC 2.22 L (4.30-5.90) m/uL Hgb 7.2 L (13.0-17.5) gm/dL Hct 21.9 L (39.0-53.0) % Plt Count 140 L (150-450) k/uL Sodium 135 L (137-145) mmol/L BUN 28 H (9-20) mg/dL Glucose 148 H (74-99) mg/dL Calcium 8.1 L (8.4-10.2) mg/dL Troponin I (0.000-0.034) ng/mL C-Reactive Protein (0.0-0.8) mg/dL Total Protein 4.9 L (6.3-8.2) g/dL Albumin 2.7 L (3.5-5.0) g/dL Crossmatch See Detail 01/24/21 01/24/21 Range/Units 04:32 14:44 RBC (4.30-5.90) m/uL Hgb (13.0-17.5) gm/dL Hct (39.0-53.0) % Plt Count (150-450) k/uL Sodium (137-145) mmol/L BUN (9-20) mg/dL Glucose (74-99) mg/dL Calcium (8.4-10.2) mg/dL Troponin I 0.037 H* (0.000-0.034) ng/mL C-Reactive Protein 1.3 H (0.0-0.8) mg/dL Total Protein (6.3-8.2) g/dL Albumin (3.5-5.0) g/dL Crossmatch Assessment and Plan Assessment: Occipital moderate-sized hematoma status post mechanical fall as per patient. Mild acute blood loss anemia Paroxysmal atrial fibrillation on anticoagulation with Xarelto Hypovolemic hyponatremia Microcytic anemia Multifocal infiltrates on chest x-ray. COVID-19 negative. Dementia. Parkinsonian features. Coronary artery disease history of stent placement Hypertension Hyperlipidemia Asthma/COPD no prior history of smoking DVT prophylaxis SCDs. Plan: Patient sustained a fall likely mechanical as per patient. No complaints of dizziness or lightheadedness. Patient was slightly hypotensive on admission. Improved currently. COVID-19 PCR not detected. Continue to follow inflammatory markers. Monitor H&H. Patient is currently maintaining sinus rhythm. TSH B12 and folate levels will be ordered. Transfused 1 unit of PRBC.. Will hold Xarelto at this time and will start back once hemoglobin is stable. Continue to follow closely and further recommendations based on the clinical course. Time with Patient: Greater than 30
[2021-01-25] MEDS: SODIUM CHLORIDE 0.9% 1,000 ML IV SCH ×2 (05:45→20:57)
[2021-01-25] MEDS: BRIMONIDINE TARTRATE 0.2% DROPS 5 ML BTL BOTH EYES SCH (07:01)
[2021-01-25] MEDS: carvediloL 3.125 MG TAB PO SCH ×2 (07:02→17:03)
[2021-01-25] MEDS: DOCUSATE 100 MG CAP PO SCH (07:02)
[2021-01-25] MEDS: FLUTICASONE 110 MCG INHALER INHALATION SCH ×2 (08:56→20:17)
[2021-01-25 10:23] LABS: African American GFR (CKD) 88.7 (60.0-200.0); BUN/Creat Ratio 26.67 Ratio (12.00-20.00); Calcium 7.9 mg/dL (8.7-10.3); Non-African American GFR(CKD) 76.5 (60.0-200.0); Potassium 3.9 mmol/L (3.5-5.5)
[2021-01-25] MEDS: FOLIC ACID 1 MG TAB PO SCH (11:46)
[2021-01-25] MEDS: MULTIVITAMINS, THERA 1 EACH TAB PO SCH (11:46)
[2021-01-25 12:34] LABS: Basophils # (A) 0.02
[2021-01-25 12:35] LABS: Eosinophils # (A) 0.66; Lymphocytes # (A) 1.34; Monocytes # (A) 0.65
[2021-01-25 12:36] LABS: Basophils % (A) 0.3; Eosinophils % (A) 10.6; Lymphocytes % (A) 21.4; Monocytes % (A) 10.4; Neutrophils # (A) 3.56
[2021-01-25 12:37] LABS: Mean Platelet Volume 10.9
[2021-01-25 12:38] LABS: Platelet Count 132; RDW 15.4
[2021-01-25 12:39] LABS: MCH 32.7; MCHC 33.2; MCV 98.5
[2021-01-25 12:43] LABS: HCT 19.6
[2021-01-25 12:45] LABS: HGB 6.5; RBC 1.99
[2021-01-25 12:47] LABS: WBC 6.25
--- NOTE | 2021-01-25 15:59 | XR ---
EXAMINATION TYPE: XR chest 1V DATE OF EXAM: 01/25/2021 COMPARISON: 01/23/2021 HISTORY: 85-year-old male with cough TECHNIQUE: Single frontal view of the chest is obtained. FINDINGS: Leftward patient rotation. Heart normal size. Mild interstitial prominence but improved from prior. H yperinflation. No consolidation or sizable effusion. IMPRESSION: COPD. Rotated exam. Aeration is improved as compared to 01/23/2021. Mild interstitial densities remain , possible residual mild pulmonary vascular congestion or atypical pneumonia.
[2021-01-25] MEDS: ASPIRIN 81 MG PO SCH (17:03)
[2021-01-25] MEDS: VITAMIN E (DL,TOCOPHERYL ACET) 400 UNIT CAP PO SCH (17:03)
[2021-01-25] MEDS: CHOLECALCIFEROL 25 MCG (1000 IU) TABLET PO SCH (17:03)
[2021-01-25] MEDS ORDERED: FUROSEMIDE 10 MG/ML 2 ML VIAL IV ONE (17:30)
[2021-01-25] MEDS: PRAVASTATIN SODIUM 80 MG TAB PO SCH (20:57)
[2021-01-25] MEDS: DONEPEZIL 5 MG TAB PO SCH (20:57)
[2021-01-25] MEDS: LATANOPROST 0.005% OPHTH DROPS 2.5 ML BTL BOTH EYES SCH (20:57)
[2021-01-26] MEDS: FLUTICASONE 110 MCG INHALER INHALATION SCH ×2 (08:06→21:20)
[2021-01-26] MEDS: carvediloL 3.125 MG TAB PO SCH ×2 (10:45→17:58)
[2021-01-26] MEDS: SODIUM CHLORIDE 0.9% 1,000 ML IV SCH (10:46)
[2021-01-26] MEDS: BRIMONIDINE TARTRATE 0.2% DROPS 5 ML BTL BOTH EYES SCH (10:46)
[2021-01-26] MEDS: DOCUSATE 100 MG CAP PO SCH (10:46)
[2021-01-26 11:15] LABS: Anisocytosis Slight; HCT 25.5 % (39.0-53.0); MCH 33.2 pg (25.0-35.0); MCHC 34.8 g/dL (31.0-37.0); MCV 95.2 fL (80.0-100.0); Mean Platelet Volume 7.9; Platelet Count 161 k/uL (150-450); RBC 2.67 m/uL (4.30-5.90); WBC 6.3 k/uL (3.8-10.6)
[2021-01-26 12:09] LABS: HGB 8.9 gm/dL (13.0-17.5)
[2021-01-26] MEDS: MULTIVITAMINS, THERA 1 EACH TAB PO SCH (12:52)
[2021-01-26] MEDS: ACETAMINOPHEN TAB 325 MG TAB PO PRN (12:52)
[2021-01-26] MEDS: FOLIC ACID 1 MG TAB PO SCH (12:52)
[2021-01-26] MEDS: RIVAROXABAN 20 MG TAB PO SCH (17:57)
[2021-01-26] MEDS: CHOLECALCIFEROL 25 MCG (1000 IU) TABLET PO SCH (17:57)
[2021-01-26] MEDS: ASPIRIN 81 MG PO SCH (17:57)
[2021-01-26] MEDS: VITAMIN E (DL,TOCOPHERYL ACET) 400 UNIT CAP PO SCH (17:58)
[2021-01-26] MEDS: DONEPEZIL 5 MG TAB PO SCH (21:45)
[2021-01-26] MEDS: PRAVASTATIN SODIUM 80 MG TAB PO SCH (21:45)
[2021-01-26] MEDS: LATANOPROST 0.005% OPHTH DROPS 2.5 ML BTL BOTH EYES SCH (21:46)
--- NOTE | 2021-01-26 23:55 | P.PN ---
Subjective Progress Note Date: 01/25/21 Principal diagnosis: Occipital moderate-sized hematoma status post mechanical fall as per patient. Mild acute blood loss anemia Paroxysmal atrial fibrillation on anticoagulation with Xarelto-on hold Patient is a 85-year-old male with a known history of paroxysmal atrial fibrilla tion on anticoagulation with Xarelto, hypertension, hyperlipidemia, dementia, coronary disease with history of stent placement and asthma was brought to the hospital status post fall. Patient apparently fell outside while he was climbing down at the last foot of the staircase. Patient's grandson is at bedside. Currently patient cannot provide any history. According to the patient he lost his footing and tripped and fell backwards. Patient had hematoma on the back of the head and was bleeding as well. Patient is currently on Xarelto, aspirin is in. Patient denied any loss of consciousness. No chest pain or shortness breath. No nausea vomiting. No recent illnesses. No fever no chills. No cough production. Upon arrival to the ER blood pressure 99/64 pulse is 71 respirations 16 pulse ox 95% on room air patient has been afebrile. CT head and cervical spine showed there is no fracture or dislocation evident in the cervical spine. No acute intracranial hemorrhage or midline shift is seen. Moderate size acute occipital hematoma. Chest x-ray showed chronic changes and cardiomegaly with small to tiny pleural effusion. Suspect new bilateral multifocal opacities correlate to exclude COVID-19 infection in current environment. EKG showed normal sinus rhythm Laboratory showed WBC 8.7 hemoglobin 7.7 and dropped down to 6.5 MCV 100.4 RDW 14.1 and platelets 160 Lymphocyte 0.7 INR 1.8 Sodium 136 potassium 4.3 chloride 104 BUN 29 and creatinine 1.1 FOBT negative and coronavirus PCR not detected. Patient has admitted to hospital from 11/14/2020 to 11/23/20. Patient was recently admitted to the hospital due to confusion and complete neurologic work-up, slow stroke work-up was done including MRI of the brain, EEG, 2D echocardiogram and large volume spinal tap did not produce any improvement in his gait. Rule out normal pressure hydrocephalus. 01/24/2021 Patient is more alert and oriented today. Denies any complaints of chest pain or shortness of. No fever no chills. Denies any dizziness or lightheadedness. Hemoglobin is 7.2 today. BUN 28 and creatinine 1.15 No complaints of nausea. Advance oral diet. Follow-up H&H tomorrow. PT OT will be consulted. Xarelto is on hold. 01/25/2021 patient is awake alert and oriented. No complaints of chest pain or shortness o f breath. Hemoglobin is 6.5 today. Patient was transfused with 1 unit of PRBC. Posttransfusion patient was given 1 dose of IV Lasix 20 mg due to chest congestion and shortness of breath. Patient has been afebrile. No nausea vomiting or abdominal pain or diarrhea. No dysuria or hematuria. Blood pressure is stable and heart rate is controlled. Lab data showed sodium 143 potassium 3.9 chloride 111 BUN 24 and creatinine 0.9 denied any hematemesis or melena. Current medications reviewed. Objective - Vital Signs Vital signs: Vital Signs Temp 98.6 F 01/25/21 17:39 Pulse 76 01/25/21 19:20 Resp 18 01/25/21 17:39 BP 150/75 01/25/21 17:39 Pulse Ox 99 01/25/21 17:39 Intake & Output 01/25/21 01/25/21 01/26/21 06:59 18:59 06:59 Intake Total 310 Balance 310 Intake: Blood Product 310 Rc As-1 Unit 310 [id number] Other: Voiding Method Diaper Diaper Indwelling Catheter # Voids 1 3 # Bowel Movements 1 - Exam PHYSICAL EXAMINATION: Patient is lying in the bed comfortably, no acute distress, awake alert but not oriented.. HEENT: Normocephalic. Occipital hematoma. With the blood noted on the dressing. Neck is supple. Pupils reactive. Nostrils clear. Oral cavity is moist. Ears reveal no drainage. Neck reveals no JVD, carotid bruits, or thyromegaly. CHEST EXAMINATION: Trachea is central. Symmetrical expansion. Lung caro clear to auscultation and percussion. CARDIAC: Normal S1, S2 with no gallops. No murmurs ABDOMEN: Soft. Bowel sounds normal. No organomegaly. No abdominal bruits. Extremities: reveal no edema. No clubbing or cyanosis Neurologically awake, alert, oriented x1 with well-coordinated movements. No focal deficits noted Skin: No rash or skin lesions. Psychiatric: Coperative. Musculoskeletal: No joint swelling or deformity. - Labs CBC & Chem 7: 01/26/21 10:52 01/25/21 05:39 Labs: Abnormal Lab Results - Last 24 Hours (Table) 01/23/21 01/25/21 01/25/21 Range/Units 11:24 05:39 05:39 Plt Count Comment DECREASED A Chloride 111 H (96-109) mmol/L BUN/Creatinine Ratio 26.67 H (12.00-20.00) Ratio Calcium 7.9 L (8.7-10.3) mg/dL Crossmatch See Detail Assessment and Plan Assessment: Occipital moderate-sized hematoma status post mechanical fall as per patient. Mild acute blood loss anemia Paroxysmal atrial fibrillation on anticoagulation with Xarelto Hypovolemic hyponatremia Microcytic anemia Multifocal infiltrates on chest x-ray. COVID-19 negative. Dementia. Parkinsonian features. Coronary artery disease history of stent placement Hypertension Hyperlipidemia Asthma/COPD no prior history of smoking DVT prophylaxis SCDs. Plan: Patient sustained a fall likely mechanical as per patient. No complaints of dizziness or lightheadedness. Patient was slightly hypotensive on admission. Improved currently. COVID-19 PCR not detected. Continue to follow inflammatory markers. Monitor H&H. Patient is currently maintaining sinus rhythm. TSH B12 and folate levels will be ordered. Transfused 1 unit of PRBC.. Patient received total of 2 units of blood. Will hold Xarelto at this time and will start back once hemoglobin is stable. Continue to follow closely and further recommendations based on the clinical course. Time with Patient: Greater than 30
--- NOTE | 2021-01-26 23:57 | P.PN ---
Subjective Progress Note Date: 01/26/21 Principal diagnosis: Occipital moderate-sized hematoma status post mechanical fall as per patient. Mild acute blood loss anemia Paroxysmal atrial fibrillation on anticoagulation with Xarelto-on hold Patient is a 85-year-old male with a known history of paroxysmal atrial fibrilla tion on anticoagulation with Xarelto, hypertension, hyperlipidemia, dementia, coronary disease with history of stent placement and asthma was brought to the hospital status post fall. Patient apparently fell outside while he was climbing down at the last foot of the staircase. Patient's grandson is at bedside. Currently patient cannot provide any history. According to the patient he lost his footing and tripped and fell backwards. Patient had hematoma on the back of the head and was bleeding as well. Patient is currently on Xarelto, aspirin is in. Patient denied any loss of consciousness. No chest pain or shortness breath. No nausea vomiting. No recent illnesses. No fever no chills. No cough production. Upon arrival to the ER blood pressure 99/64 pulse is 71 respirations 16 pulse ox 95% on room air patient has been afebrile. CT head and cervical spine showed there is no fracture or dislocation evident in the cervical spine. No acute intracranial hemorrhage or midline shift is seen. Moderate size acute occipital hematoma. Chest x-ray showed chronic changes and cardiomegaly with small to tiny pleural effusion. Suspect new bilateral multifocal opacities correlate to exclude COVID-19 infection in current environment. EKG showed normal sinus rhythm Laboratory showed WBC 8.7 hemoglobin 7.7 and dropped down to 6.5 MCV 100.4 RDW 14.1 and platelets 160 Lymphocyte 0.7 INR 1.8 Sodium 136 potassium 4.3 chloride 104 BUN 29 and creatinine 1.1 FOBT negative and coronavirus PCR not detected. Patient has admitted to hospital from 11/14/2020 to 11/23/20. Patient was recently admitted to the hospital due to confusion and complete neurologic work-up, slow stroke work-up was done including MRI of the brain, EEG, 2D echocardiogram and large volume spinal tap did not produce any improvement in his gait. Rule out normal pressure hydrocephalus. 01/24/2021 Patient is more alert and oriented today. Denies any complaints of chest pain or shortness of. No fever no chills. Denies any dizziness or lightheadedness. Hemoglobin is 7.2 today. BUN 28 and creatinine 1.15 No complaints of nausea. Advance oral diet. Follow-up H&H tomorrow. PT OT will be consulted. Xarelto is on hold. 01/25/2021 patient is awake alert and oriented. No complaints of chest pain or shortness o f breath. Hemoglobin is 6.5 today. Patient was transfused with 1 unit of PRBC. Posttransfusion patient was given 1 dose of IV Lasix 20 mg due to chest congestion and shortness of breath. Patient has been afebrile. No nausea vomiting or abdominal pain or diarrhea. No dysuria or hematuria. Blood pressure is stable and heart rate is controlled. Lab data showed sodium 143 potassium 3.9 chloride 111 BUN 24 and creatinine 0.9 denied any hematemesis or melena. 01/26/2021 Patient is currently resting in the bed comfortably. No complaints of chest pain or shortness breath. Hemoglobin level improved to 8.9 today. No headache or dizziness or lightheadedness. No fever no chills. Tolerating oral diet. Patient will be started on Debrox about and monitor H&H tomorrow. Anticipate discharge if the hemoglobin is stable. Discussed with his grandson at bedside. Family would like him to be discharged home. Current medications reviewed. Objective - Vital Signs Vital signs: Vital Signs Temp 98.2 F 01/26/21 22:00 Pulse 73 01/26/21 22:00 Resp 18 01/26/21 22:00 BP 132/67 01/26/21 22:00 Pulse Ox 97 01/26/21 22:00 Intake & Output 01/26/21 01/26/21 01/27/21 06:59 18:59 06:59 Output Total 1450 800 Balance -1450 -800 Output: Urine 1450 800 Other: Voiding Method Indwelling Catheter Indwelling Catheter - Exam PHYSICAL EXAMINATION: Patient is lying in the bed comfortably, no acute distress, awake alert but not oriented.. HEENT: Normocephalic. Occipital hematoma. With the blood noted on the dressing. Neck is supple. Pupils reactive. Nostrils clear. Oral cavity is moist. Ears reveal no drainage. Neck reveals no JVD, carotid bruits, or thyromegaly. CHEST EXAMINATION: Trachea is central. Symmetrical expansion. Lung caro clear to auscultation and percussion. CARDIAC: Normal S1, S2 with no gallops. No murmurs ABDOMEN: Soft. Bowel sounds normal. No organomegaly. No abdominal bruits. Extremities: reveal no edema. No clubbing or cyanosis Neurologically awake, alert, oriented x1 with well-coordinated movements. No focal deficits noted Skin: No rash or skin lesions. Psychiatric: Coperative. Musculoskeletal: No joint swelling or deformity. - Labs CBC & Chem 7: 01/26/21 10:52 01/25/21 05:39 Labs: Abnormal Lab Results - Last 24 Hours (Table) 01/24/21 01/26/21 Range/Units 04:32 10:52 RBC 2.67 L (4.30-5.90) m/uL Hgb 8.9 L D (13.0-17.5) gm/dL Hct 25.5 L (39.0-53.0) % RDW 16.0 H (11.5-15.5) % RBC Folate 1,556 H (280 - 791) ng/mL Assessment and Plan Assessment: Occipital moderate-sized hematoma status post mechanical fall as per patient. Mild acute blood loss anemia Paroxysmal atrial fibrillation on anticoagulation with Xarelto Hypovolemic hyponatremia Microcytic anemia Multifocal infiltrates on chest x-ray. COVID-19 negative. Dementia. Parkinsonian features. Coronary artery disease history of stent placement Hypertension Hyperlipidemia Asthma/COPD no prior history of smoking DVT prophylaxis SCDs. Plan: Patient sustained a fall likely mechanical as per patient. No complaints of dizziness or lightheadedness. Patient was slightly hypotensive on admission. Improved currently. COVID-19 PCR not detected. Continue to follow inflammatory markers. Monitor H&H. Patient is currently maintaining sinus rhythm. TSH B12 and folate levels will be ordered. Transfused 1 unit of PRBC.. Patient received total of 2 units of blood. Will hold Xarelto at this time and will start back once hemoglobin is stable. Continue to follow closely and further recommendations based on the clinical course. Time with Patient: Greater than 30
[2021-01-27] MEDS: SODIUM CHLORIDE 0.9% 1,000 ML IV SCH (05:43)
[2021-01-27] MEDS: DOCUSATE 100 MG CAP PO SCH (07:26)
[2021-01-27] MEDS: BRIMONIDINE TARTRATE 0.2% DROPS 5 ML BTL BOTH EYES SCH (07:26)
[2021-01-27] MEDS: carvediloL 3.125 MG TAB PO SCH ×2 (07:26→17:47)
[2021-01-27 09:21] LABS: Basophils # (A) 0.02 X 10*3/uL (0.00-0.10); Basophils % (A) 0.3 %; Eosinophils # (A) 0.89 X 10*3/uL (0.04-0.35); Eosinophils % (A) 15.3 %; HCT 22.5 % (39.6-50.0); HGB 7.3 g/dL (13.0-17.0); Lymphocytes # (A) 1.08 X 10*3/uL (0.90-5.00); Lymphocytes % (A) 18.6 %; MCH 31.9 pg (27.0-32.0); MCHC 32.4 g/dL (32.0-37.0); MCV 98.3 fL (80.0-97.0); Mean Platelet Volume 10.3 fL (9.5-12.2); Monocytes # (A) 0.58 X 10*3/uL (0.20-1.00); Neutrophils # (A) 3.22 X 10*3/uL (1.80-7.70); Neutrophils % (A) 55.6 %; Platelet Count 156 X 10*3/uL (140-440); RBC 2.29 X 10*6/uL (4.40-5.60); RDW 16.4 % (11.5-14.5)
[2021-01-27] MEDS: FLUTICASONE 110 MCG INHALER INHALATION SCH ×2 (09:27→19:09)
[2021-01-27 10:46] LABS: African American GFR (CKD) 93.1 (60.0-200.0); Anion Gap 5.4 mmol/L (4.00-12.00); BUN/Creat Ratio 27.5 Ratio (12.00-20.00); Calcium 8.1 mg/dL (8.7-10.3); Carbon Dioxide 27.6 mmol/L (21.6-31.8); Non-African American GFR(CKD) 80.3 (60.0-200.0); Potassium 3.8 mmol/L (3.5-5.5)
[2021-01-27] MEDS: FOLIC ACID 1 MG TAB PO SCH (11:36)
[2021-01-27] MEDS: MULTIVITAMINS, THERA 1 EACH TAB PO SCH (11:36)
--- NOTE | 2021-01-27 14:32 | P.PN ---
Subjective Progress Note Date: 01/27/21 Occipital moderate-sized hematoma status post mechanical fall as per patient. Mild acute blood loss anemia Paroxysmal atrial fibrillation on anticoagulation with Xarelto-on hold Patient is a 85-year-old male with a known history of paroxysmal atrial fibrillation on anticoagulation with Xarelto, hypertension, hyperlipidemia, dementia, coronary disease with history of stent placement and asthma was brou ght to the hospital status post fall. Patient apparently fell outside while he was climbing down at the last foot of the staircase. Patient's grandson is at bedside. Currently patient cannot provide any history. According to the patient he lost his footing and tripped and fell backwards. Patient had hematoma on the back of the head and was bleeding as well. Patient is currently on Xarelto, aspirin is in. Patient denied any loss of consciousness. No chest pain or shortness breath. No nausea vomiting. No recent illnesses. No fever no chills. No cough production. Upon arrival to the ER blood pressure 99/64 pulse is 71 respirations 16 pulse ox 95% on room air patient has been afebrile. CT head and cervical spine showed there is no fracture or dislocation evident in the cervical spine. No acute intracranial hemorrhage or midline shift is seen. Moderate size acute occipital hematoma. Chest x-ray showed chronic changes and cardiomegaly with small to tiny pleural effusion. Suspect new bilateral multifocal opacities correlate to exclude COVID-19 infection in current environment. EKG showed normal sinus rhythm Laboratory showed WBC 8.7 hemoglobin 7.7 and dropped down to 6.5 MCV 100.4 RDW 14.1 and platelets 160 Lymphocyte 0.7 INR 1.8 Sodium 136 potassium 4.3 chloride 104 BUN 29 and creatinine 1.1 FOBT negative and coronavirus PCR not detected. Patient has admitted to hospital from 11/14/2020 to 11/23/20. Patient was recently admitted to the hospital due to confusion and complete neurologic work-up, slow stroke work-up was done including MRI of the brain, EEG, 2D echocardiogram and large volume spinal tap did not produce any improvement in his gait. Rule out normal pressure hydrocephalus. 01/24/2021 Patient is more alert and oriented today. Denies any complaints of chest pain or shortness of. No fever no chills. Denies any dizziness or lightheadedness. Hemoglobin is 7.2 today. BUN 28 and creatinine 1.15 No complaints of nausea. Advance oral diet. Follow-up H&H tomorrow. PT OT will be consulted. Xarelto is on hold. 01/25/2021 patient is awake alert and oriented. No complaints of chest pain or shortness of breath. Hemoglobin is 6.5 today. Patient was transfused with 1 unit of PRBC. Posttransfusion patient was given 1 dose of IV Lasix 20 mg due to chest congestion and shortness of breath. Patient has been afebrile. No nausea vomiting or abdominal pain or diarrhea. No dysuria or hematuria. Blood pressure is stable and heart rate is controlled. Lab data showed sodium 143 potassium 3.9 chloride 111 BUN 24 and creatinine 0.9 denied any hematemesis or melena. 01/26/2021 Patient is currently resting in the bed comfortably. No complaints of chest pain or shortness breath. Hemoglobin level improved to 8.9 today. No headache or dizziness or lightheadedness. No fever no chills. Tolerating oral diet. Patient will be started on Debrox about and monitor H&H tomorrow. Anticipate discharge if the hemoglobin is stable. Discussed with his grandson at bedside. Family would like him to be discharged home. 01/27/2021 Patient is seen and evaluated and follow-up with family member at the bedside. Family member states he has is 24/7 caregiver and will be going home within once discharged. Patient has been resumed on Xarelto and will continue with no active bleeding noted. Hemoglobin today was found to be 7.3. We'll monitor closely for any signs of bleeding and repeat CBC in the morning. Patient and family would like to be discharged although agreeable to stay 1 more day to monitor hemoglobin. Current medications reviewed. Objective - Vital Signs Vital signs: Vital Signs Temp 97.9 F 01/27/21 14:00 Pulse 76 01/27/21 14:00 Resp 18 01/27/21 14:00 BP 135/80 01/27/21 14:00 Pulse Ox 99 01/27/21 14:00 Intake & Output 01/26/21 01/27/21 01/27/21 18:59 06:59 18:59 Output Total 800 Balance -800 Output: Urine 800 Other: Voiding Method Indwelling Catheter External Catheter External Catheter # Voids 1 - Exam Patient is sitting up in the chair comfortably, no acute distress, awake alert and oriented 1-2 baseline.. HEENT: Normocephalic. Occipital hematoma. With the blood noted on the dressing. Neck is supple. Pupils reactive. Nostrils clear. Oral cavity is moist. Ears reveal no drainage. Neck reveals no JVD, carotid bruits, or thyromegaly. CHEST EXAMINATION: Trachea is central. Symmetrical expansion. Lung caro clear to auscultation and percussion. CARDIAC: Normal S1, S2 with no gallops. No murmurs ABDOMEN: Soft. Bowel sounds normal. No organomegaly. No abdominal bruits. Extremities: reveal no edema. No clubbing or cyanosis Neurologically awake, alert, oriented x1-2 with well-coordinated movements. No focal deficits noted Skin: No rash or skin lesions. Psychiatric: Cooperative. Musculoskeletal: No joint swelling or deformity. - Labs CBC & Chem 7: 01/27/21 06:45 01/27/21 06:45 Labs: Abnormal Lab Results - Last 24 Hours (Table) 01/24/21 01/27/21 01/27/21 Range/Units 04:32 06:45 06:45 RBC 2.29 L (4.40-5.60) X 10*6/uL Hgb 7.3 L (13.0-17.0) g/dL Hct 22.5 L (39.6-50.0) % MCV 98.3 H (80.0-97.0) fL RDW 16.4 H (11.5-14.5) % Eosinophils # 0.89 H (0.04-0.35) X 10*3/uL BUN/Creatinine Ratio 27.50 H (12.00-20.00) Ratio Calcium 8.1 L (8.7-10.3) mg/dL RBC Folate 1,556 H (280 - 791) ng/mL Assessment and Plan Assessment: Occipital moderate-sized hematoma status post mechanical fall as per patient. Mild acute blood loss anemia Paroxysmal atrial fibrillation on anticoagulation with Xarelto Hypovolemic hyponatremia Microcytic anemia Multifocal infiltrates on chest x-ray. COVID-19 negative. Dementia. Parkinsonian features. Coronary artery disease history of stent placement Hypertension Hyperlipidemia Asthma/COPD no prior history of smoking DVT prophylaxis SCDs. Plan: Patient sustained a fall likely mechanical as per patient. No complaints of dizziness or lightheadedness. Patient was slightly hypotensive on admission. Improved currently. COVID-19 PCR not detected. Continue to follow inflammatory markers. Monitor H&H. Patient is currently maintaining sinus rhythm. Hemoglobin today is 7.3 and has been resumed on Xarelto and will continue to monitor for any signs of bleeding. In family members at the bedside like to go home although agreeable to be closely observed for another 24 hours and repeat CBC in the morning. We'll discontinue IV fluids as patient is eating and drinking and tolerating. Per grandson at the bedside patient did have a bowel movement with no bleeding noted or dark stools noted. Due to multiple complex medical issues, prognosis is guarded. Further recommendations to follow based on the clinical course of the patient. Possible discharge in 24 hours.
[2021-01-27] MEDS: CHOLECALCIFEROL 25 MCG (1000 IU) TABLET PO SCH (17:47)
[2021-01-27] MEDS: ASPIRIN 81 MG PO SCH (17:47)
[2021-01-27] MEDS: RIVAROXABAN 20 MG TAB PO SCH (17:48)
[2021-01-27] MEDS: VITAMIN E (DL,TOCOPHERYL ACET) 400 UNIT CAP PO SCH (17:48)
[2021-01-27] MEDS: LATANOPROST 0.005% OPHTH DROPS 2.5 ML BTL BOTH EYES SCH (21:49)
[2021-01-27] MEDS: PRAVASTATIN SODIUM 80 MG TAB PO SCH (21:49)
[2021-01-27] MEDS: DONEPEZIL 5 MG TAB PO SCH (21:49)
[2021-01-28 05:43] VITALS: BP 129/72; PULSE 87; RESP 14; TEMP 98
[2021-01-28] MEDS: carvediloL 3.125 MG TAB PO SCH (06:53)
[2021-01-28] MEDS: DOCUSATE 100 MG CAP PO SCH (06:53)
[2021-01-28] MEDS: BRIMONIDINE TARTRATE 0.2% DROPS 5 ML BTL BOTH EYES SCH (06:54)
[2021-01-28] MEDS: ACETAMINOPHEN TAB 325 MG TAB PO PRN (07:00)
[2021-01-28 07:08] LABS: Anisocytosis Slight; Basophils % (A) 1 %; Eosinophils # (A) 0.9 k/uL (0-0.7); Eosinophils % (A) 12 %; HCT 26.2 % (39.0-53.0); HGB 8.3 gm/dL (13.0-17.5); Lymphocytes # (A) 1.1 k/uL (1.0-4.8); Lymphocytes % (A) 15 %; MCH 31.5 pg (25.0-35.0); MCHC 31.8 g/dL (31.0-37.0); MCV 99.1 fL (80.0-100.0); Macrocytosis Slight; Mean Platelet Volume 7.8; Monocytes # (A) 0.5 k/uL (0-1.0); Monocytes % (A) 7 %; Neutrophils # (A) 4.7 k/uL (1.3-7.7); Neutrophils % (A) 63 %; Platelet Count 232 k/uL (150-450); RBC 2.64 m/uL (4.30-5.90); RDW 16.2 % (11.5-15.5); WBC 7.4 k/uL (3.8-10.6)
[2021-01-28] MEDS: FLUTICASONE 110 MCG INHALER INHALATION SCH (08:40)
[2021-01-28] MEDS: FOLIC ACID 1 MG TAB PO SCH (11:10)
[2021-01-28] MEDS: MULTIVITAMINS, THERA 1 EACH TAB PO SCH (11:10)
[2021-01-28 13:39] VITALS: BMI 24.5
--- NOTE | 2021-01-28 16:10 | P.DS ---
Providers Date of admission: 01/23/21 11:15 Expected date of discharge: 01/28/21 Attending physician: Joanne Humphreys Primary care physician: Mike Conde Hospital Course: Final diagnosis Occipital moderate-sized hematoma status post mechanical fall as per patient. Mild acute blood loss anemia Paroxysmal atrial fibrillation on anticoagulation with Xarelto Hypovolemic hyponatremia Microcytic anemia Multifocal infiltrates on chest x-ray. COVID-19 negative. Dementia. Parkinsonian features. Coronary artery disease history of stent placement Hypertension Hyperlipidemia Asthma/COPD no prior history of smoking DVT prophylaxis Discharge disposition Patient is being discharged in a stable condition with guarded prognosis to home. Patient will follow-up with Dr. Conde in the outpatient setting upon discharge. Patient is to continue with Xarelto. Recommend repeat labs in the outpatient setting to monitor hemoglobin. Total time taken is greater than 35 minutes. Hospital course Occipital moderate-sized hematoma status post mechanical fall as per patient. Mild acute blood loss anemia Paroxysmal atrial fibrillation on anticoagulation with Xarelto-on hold Patient is a 85-year-old male with a known history of paroxysmal atrial fibrillation on anticoagulation with Xarelto, hypertension, hyperlipidemia, dementia, coronary disease with history of stent placement and asthma was brought to the hospital status post fall. Patient apparently fell outside while he was climbing down at the last foot of the staircase. Patient's grandson is at bedside. Currently patient cannot provide any history. According to the pat ient he lost his footing and tripped and fell backwards. Patient had hematoma on the back of the head and was bleeding as well. Patient is currently on Xarelto, aspirin is in. Patient denied any loss of consciousness. No chest pain or shortness breath. No nausea vomiting. No recent illnesses. No fever no chills. No cough production. Upon arrival to the ER blood pressure 99/64 pulse is 71 respirations 16 pulse ox 95% on room air patient has been afebrile. CT head and cervical spine showed there is no fracture or dislocation evident in the cervical spine. No acute intracranial hemorrhage or midline shift is seen. Moderate size acute occipital hematoma. Chest x-ray showed chronic changes and cardiomegaly with small to tiny pleural effusion. Suspect new bilateral multifocal opacities correlate to exclude COVID-19 infection in current environment. EKG showed normal sinus rhythm Laboratory showed WBC 8.7 hemoglobin 7.7 and dropped down to 6.5 MCV 100.4 RDW 14.1 and platelets 160 Lymphocyte 0.7 INR 1.8 Sodium 136 potassium 4.3 chloride 104 BUN 29 and creatinine 1.1 FOBT negative and coronavirus PCR not detected. Patient has admitted to hospital from 11/14/2020 to 11/23/20. Patient was recently admitted to the hospital due to confusion and complete neurologic work-up, slow stroke work-up was done including MRI of the brain, EEG, 2D echocardiogram and large volume spinal tap did not produce any improvement in his gait. Rule out normal pressure hydrocephalus. 01/24/2021 Patient is more alert and oriented today. Denies any complaints of chest pain or shortness of. No fever no chills. Denies any dizziness or lightheadedness. Hemoglobin is 7.2 today. BUN 28 and creatinine 1.15 No complaints of nausea. Advance oral diet. Follow-up H&H tomorrow. PT OT will be consulted. Xarelto is on hold. 01/25/2021 patient is awake alert and oriented. No complaints of chest pain or shortness of breath. Hemoglobin is 6.5 today. Patient was transfused with 1 unit of PRBC. Posttransfusion patient was given 1 dose of IV Lasix 20 mg due to chest congestion and shortness of breath. Patient has been afebrile. No nausea vomiting or abdominal pain or diarrhea. No dysuria or hematuria. Blood pressure is stable and heart rate is controlled. Lab data showed sodium 143 potassium 3.9 chloride 111 BUN 24 and creatinine 0.9 denied any hematemesis or melena. 01/26/2021 Patient is currently resting in the bed comfortably. No complaints of chest pain or shortness breath. Hemoglobin level improved to 8.9 today. No headache or dizziness or lightheadedness. No fever no chills. Tolerating oral diet. Patient will be started on Debrox about and monitor H&H tomorrow. Anticipate discharge if the hemoglobin is stable. Discussed with his grandson at bedside. Family would like him to be discharged home. 01/27/2021 Patient is seen and evaluated and follow-up with family member at the bedside. Family member states he has is 24/7 caregiver and will be going home within once discharged. Patient has been resumed on Xarelto and will continue with no active bleeding noted. Hemoglobin today was found to be 7.3. We'll monitor closely for any signs of bleeding and repeat CBC in the morning. Patient and family would like to be discharged although agreeable to stay 1 more day to monitor hemoglobin. 01/28/2021 Patient is seen in follow-up this morning with no acute overnight issues. Patient's hemoglobin was 8.3 with no active bleeding noted. Patient will be discharged home today and recommend repeat labs in a few days to monitor hemoglobin and following up with primary care provider early next week. Patient will continue with Xarelto and if further bleeding is noted family informed to hold anticoagulant and notify primary care provider. Currently no reports of chest pain, shortness of breath, or palpitations. Patient is afebrile. No reports of nausea or vomiting and patient is tolerating diet. Patient will be discharged home today. Guarded prognosis. On exam vital signs are stable. Cardio S1, S2 are muffled. Respiratory system shows diminished breath sounds at the bases with no wheezing or rhonchi noted. Abdomen is soft and nontender. Nervous system shows no focal deficits. Please refer to medication reconciliation sheet for a list of medications. Patient Condition at Discharge: Stable Plan - Discharge Summary New Discharge Prescriptions: New carvediloL [Coreg] 3.125 mg PO BID@0900,1700 30 Days #60 tab amLODIPine [Norvasc] 10 mg PO DAILY 30 Days #30 tablet Continue Tiotropium 18 Mcg/Puff [Spiriva] 1 cap INHALATION RT-DAILY Budesonide [Pulmicort Flexhaler] 1 puff INHALATION RT-BID Rivaroxaban [Xarelto] 20 mg PO DAILY Pravastatin Sodium [Pravachol] 80 mg PO HS Vitamin E 400 unit PO DAILY@1700 Ergocalciferol (Vitamin D2) [Vitamin D2 (2000 Iu)] 50 mcg PO DAILY@1700 Brimonidine Tartrate [Alphagan P 0.2% Ophth Soln] 1 drop BOTH EYES DAILY Latanoprost [Xalatan 0.005%] 1 drop BOTH EYES HS Polyethylene Glycol 3350 [Miralax] 17 gm PO DAILY PRN PRN Reason: Constipation Docusate [Colace] 100 mg PO DAILY Folic Acid 1 mg PO DAILY@1200 tab Acetaminophen Tab [Tylenol] 650 mg PO Q6HR PRN tab PRN Reason: Mild Pain Or Fever > 100.5 Aspirin 81 mg PO DAILY@1700 Multivitamins, Thera [Multivitamin (formulary)] 1 tab PO DAILY@1200 Donepezil [Aricept] 5 mg PO HS 30 Days #30 tab Discontinued carvediloL [Carvedilol] 25 mg PO BID@0900,1700 Losartan Potassium 50 mg PO BID@0900,1700 amLODIPine [Norvasc] 10 mg PO DAILY Discharge Medication List Budesonide [Pulmicort Flexhaler] 1 puff INHALATION RT-BID 11/14/17 [History] Pravastatin Sodium [Pravachol] 80 mg PO HS 11/14/17 [History] Rivaroxaban [Xarelto] 20 mg PO DAILY 11/14/17 [History] Tiotropium 18 Mcg/Puff [Spiriva] 1 cap INHALATION RT-DAILY 11/14/17 [History] Brimonidine Tartrate [Alphagan P 0.2% Oph Soln] 1 drop BOTH EYES DAILY 11/15/20 [History] Docusate [Colace] 100 mg PO DAILY 11/15/20 [History] Ergocalciferol (Vitamin D2) [Vitamin D2 (2000 Iu)] 50 mcg PO DAILY@1700 11/15/20 [History] Latanoprost [Xalatan 0.005%] 1 drop BOTH EYES HS 11/15/20 [History] Polyethylene Glycol 3350 [Miralax] 17 gm PO DAILY PRN 11/15/20 [History] Vitamin E 400 unit PO DAILY@1700 11/15/20 [History] Acetaminophen Tab [Tylenol] 650 mg PO Q6HR PRN tab 11/23/20 [Rx] Folic Acid 1 mg PO DAILY@1200 tab 11/23/20 [Rx] Aspirin 81 mg PO DAILY@1700 01/23/21 [History] Multivitamins, Thera [Multivitamin (formulary)] 1 tab PO DAILY@1200 01/23/21 [History] Donepezil [Aricept] 5 mg PO HS 30 Days #30 tab 01/28/21 [Rx] amLODIPine [Norvasc] 10 mg PO DAILY 30 Days #30 tablet 01/28/21 [Rx] carvediloL [Coreg] 3.125 mg PO BID@0900,1700 30 Days #60 tab 01/28/21 [Rx] Follow up Appointment(s)/Referral(s): Mike Conde MD [Primary Care Provider] - 1-2 days (Office would like patient to call to schedule appointment. Thank you.) Ambulatory/Diagnostic Orders: Complete Blood Count w/diff [LAB.AMB] Time Frame: 3 Days, Location: None Selected Patient Instructions/Handouts: Fall Prevention (DC), Hematoma (ED) Activity/Diet/Wound Care/Special Instructions: Activity Limited until follow-up Follow-up with primary care provider upon discharge Cardiology outpatient Repeat labs in 2-3 days to monitor hemoglobin Discharge Disposition: HOME SELF-CARE
== END 2021-01-28 13:26 | disposition home or self-care (01) | DRG 605 ==
LOC: EC 08:52 → 5NMEDONC 11:15 → 4SSUR 13:12
PROVIDERS: ADMIT Hospitalist; ATTEND Hospitalist
PROC: 0HQ0XZZ Repair Scalp Skin, External Approach (ICD-10-PCS; principal; 2021-01-23)
DX: S00.03XA Contusion of scalp, initial encounter (principal); D62 Acute posthemorrhagic anemia; E87.1 Hypo-osmolality and hyponatremia; W01.0XXA Fall on same level from slipping, tripping and stumbling without subsequent striking against object, initial encounter; Y92.009 Unspecified place in unspecified non-institutional (private) residence as the place of occurrence of the external cause; Z20.822 Contact with and (suspected) exposure to COVID-19; D50.9 Iron deficiency anemia, unspecified; E78.5 Hyperlipidemia, unspecified; E86.1 Hypovolemia; F03.90 Unspecified dementia, unspecified severity, without behavioral disturbance, psychotic disturbance, mood disturbance, and anxiety; I11.9 Hypertensive heart disease without heart failure; I25.10 Atherosclerotic heart disease of native coronary artery without angina pectoris; I48.0 Paroxysmal atrial fibrillation; J44.9 Chronic obstructive pulmonary disease, unspecified; Z79.01 Long term (current) use of anticoagulants; Z79.82 Long term (current) use of aspirin; Z79.899 Other long term (current) drug therapy; Z82.49 Family history of ischemic heart disease and other diseases of the circulatory system; G20 Parkinson's disease; Z95.5 Presence of coronary angioplasty implant and graft
CPT/HCPCS: 12002; 36415; 70450; 71045; 71046; 72125; 80048; 80053; 82272; 82607; 82747; 83615; 84443; 84484; 85025; 85027; 85610; 85730; 86140; 86850; 86900; 86901; 86920; 87635; 93005; 94640; 96372; 99285

== ENCOUNTER 2021-02-03 16:22 | Observation (INO) | payer MEDICARE ==
[2021-02-03] MEDS ORDERED: ALBUTEROL NEBULIZED 2.5 MG/3 ML INHALATION STA (16:59)
[2021-02-03] MEDS ORDERED: methylPREDNISolone SOD SUCCI 125 MG/2 ML VIAL IV STA (16:59)
[2021-02-03 17:22] LABS: Basophils % (A) 0 %; Eosinophils # (A) 0.5 k/uL (0-0.7); Eosinophils % (A) 5 %; HCT 27.3 % (39.0-53.0); HGB 9.1 gm/dL (13.0-17.5); Hypochromasia Moderate; Lymphocytes # (A) 0.5 k/uL (1.0-4.8); Lymphocytes % (A) 6 %; MCH 32.5 pg (25.0-35.0); MCHC 33.2 g/dL (31.0-37.0); MCV 98.1 fL (80.0-100.0); Mean Platelet Volume 7.9; Monocytes # (A) 0.4 k/uL (0-1.0); Monocytes % (A) 5 %; Neutrophils # (A) 7.1 k/uL (1.3-7.7); Neutrophils % (A) 82 %; Platelet Count 294 k/uL (150-450); RBC 2.78 m/uL (4.30-5.90); WBC 8.7 k/uL (3.8-10.6)
[2021-02-03 17:35] LABS: Albumin 3.7 g/dL (3.5-5.0); Calcium 8.5 mg/dL (8.4-10.2); INR 1.3 (<1.2); Magnesium 2.6 mg/dL (1.6-2.3); Potassium 4.4 mmol/L (3.5-5.1); Total Bilirubin 0.8 mg/dL (0.2-1.3); Total Protein 6.6 g/dL (6.3-8.2)
[2021-02-03 17:37] LABS: D-Dimer 2.37 mg/L FEU (<0.60)
--- NOTE | 2021-02-03 18:14 | XR ---
EXAMINATION: XR chest 2V DATE AND TIME: 02/03/2021 5:40 PM CLINICAL INDICATION: PHH; difficulty breathing TECHNIQUE: AP and lateral COMPARISON: 01/25/2021 AP portable upright FINDINGS: There is marked interval worsening in the bilateral lung inflation when compared to the prior study . There is prominent silhouetting of the pulmonary vasculature bilaterally by a fine reticular pattern which reaches the periphery and by ill-defined multifocal added opacities. The radiographic different ial diagnosis includes advanced interstitial/alveolar phase pulmonary edema and/or multifocal broncho pneumonia. There are new small bilateral pleural effusions. No pneumothorax. The mediastinal silhouette and soft tissues and skeletal structures are negative for acute findings. IMPRESSION: MARKED INTERVAL WORSENING.
[2021-02-03] MEDS ORDERED: FUROSEMIDE 10 MG/ML 4 ML VIAL IV STA (18:49)
--- NOTE | 2021-02-03 19:25 | CT ---
EXAMINATION TYPE: CT CHEST ANGIO FOR PE WITH CONTRAST AND WITH 3-D RECONSTRUCTION RENDERINGS DATE OF EXAM: 02/03/2021 COMPARISON: Chest radiograph 02/03/2021 HISTORY: Hypoxia, dyspnea, elevated d-dimer TECHNIQUE: Automated exposure control for dose reduction was used. CT DLP: 3 x 5.4 mGycm CONTRAST: CT Chest for pulmonary embolism performed with 80 mL [id number]. FINDINGS: AIRWAYS, LUNGS, PLEURAL SPACES: Airways are unremarkable. There are prominent bilateral pleural effus ions with associated bilateral passive atelectasis affecting greater than one third of the lung paren chyma bilaterally. There are multifocal ill-defined added groundglass opacities, suggesting multifocal bronchopneumonia. Current interstitial phase pulmonary edema can only be excluded clinically. MEDIASTINUM: There is satisfactory enhancement of the pulmonary artery and its branches, with no CT e vidence for pulmonary embolism. 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 The pulmonary arterial tree is enlarged consistent with pulm onary hypertension. There is mild/moderate cardiomegaly with prominent coronary calcifications and va lve plane calcifications. No pericardial effusion. No adenopathy. OTHER: No additional significant abnormality is seen. IMPRESSION: 1. Negative for pulmonary embolism. 2. Positive for large bilateral pleural effusions and prominent bilateral passive atelectasis. 3. Focal ill-defined groundglass opacity suggests multifocal bronchopneumonia.
--- NOTE | 2021-02-03 19:31 | ED ---
SOB HPI - General Source: patient Mode of arrival: ambulatory Limitations: no limitations <Paris Jacinto - Last Filed: 02/03/21 22:49> <Jana Maldonado - Last Filed: 02/05/21 09:45> - General Chief Complaint: Shortness of Breath Stated Complaint: pneumonia-revisit Time Seen by Provider: 02/03/21 16:37 - History of Present Illness Initial Comments: 85-year-old male presenting today for chief complaint of shortness of breath. Patient states he was sent from an urgent care to rule out a blood clot he states that he has had short of breath for the past week he states he has had fatigue and weakness no fevers he denies any chest pain denies a. Deep inspiration or noting any leg swelling. He denies any coughing up blood history of DVT or pulmonary embolism he denies any active cancer to his knowledge he rafat egan is a poor historian regards to his past medical history and medications that he takes he states he is not sure if he takes lasix/diuretic/water pill or not. Edie on arrival has low oxygen in triage, but upon warming fingers and proper placement oxygen improved. pt appears in no distress. BP stable. he is in good spirits. (Paris Jacinto) - Related Data Home Medications Medication Instructions Recorded Confirmed Budesonide [Pulmicort Flexhaler] 1 puff INHALATION RT-BID 11/14/17 02/03/21 Pravastatin Sodium [Pravachol] 80 mg PO HS 11/14/17 02/03/21 Rivaroxaban [Xarelto] 20 mg PO DAILY 11/14/17 02/03/21 Tiotropium 18 Mcg/Puff [Spiriva] 1 cap INHALATION RT-DAILY 11/14/17 02/03/21 Brimonidine Tartrate [Alphagan P 1 drop BOTH EYES DAILY 11/15/20 02/03/21 0.2% Ophth Soln] Docusate [Colace] 100 mg PO DAILY 11/15/20 02/03/21 Ergocalciferol (Vitamin D2) 50 mcg PO DAILY@1700 11/15/20 02/03/21 [Vitamin D2 (2000 Iu)] Latanoprost [Xalatan 0.005%] 1 drop BOTH EYES HS 11/15/20 02/03/21 Polyethylene Glycol 3350 [Miralax] 17 gm PO DAILY PRN 11/15/20 02/03/21 Vitamin E 400 unit PO DAILY@1700 11/15/20 02/03/21 Aspirin 81 mg PO DAILY@1700 01/23/21 02/03/21 Multivitamins, Thera [Multivitamin 1 tab PO DAILY@1200 01/23/21 02/03/21 (formulary)] Previous Rx's Medication Instructions Recorded Acetaminophen Tab [Tylenol] 650 mg PO Q6HR PRN tab 11/23/20 Folic Acid 1 mg PO DAILY@1200 tab 11/23/20 Donepezil [Aricept] 5 mg PO HS 30 Days #30 tab 01/28/21 amLODIPine [Norvasc] 10 mg PO DAILY 30 Days #30 tablet 01/28/21 carvediloL [Coreg] 3.125 mg PO BID@0900,1700 30 Days 01/28/21 #60 tab Allergies Allergy/AdvReac Type Severity Reaction Status Date / Time No Known Allergies Allergy Verified 02/03/21 19:47 Review of Systems ROS Other: All systems not noted in ROS Statement are negative. <Paris Jacinto - Last Filed: 02/03/21 22:49> ROS Other: All systems not noted in ROS Statement are negative. <Jana Maldonado - Last Filed: 02/05/21 09:45> ROS Statement: Those systems with pertinent positive or pertinent negative responses have been documented in the HPI. Past Medical History Past Medical History: Atrial Fibrillation, Hyperlipidemia, Hypertension History of Any Multi-Drug Resistant Organisms: None Reported Past Surgical History: Heart Catheterization With Stent Additional Past Surgical History / Comment(s): nasal surgery as a young adult, per son Past Anesthesia/Blood Transfusion Reactions: No Reported Reaction Date of Last Stent Placement:: 2014 Past Psychological History: No Psychological Hx Reported Smoking Status: Never smoker Past Alcohol Use History: Rare Past Drug Use History: None Reported - Past Family History Father History Unknown: Yes Additional Family Medical History / Comment(s): of TB Mother Family Medical History: Myocardial Infarction ([place]) Brother(s) Additional Family Medical History / Comment(s): heart problems <Paris Jacinto - Last Filed: 02/03/21 22:49> General Exam Limitations: no limitations <Paris Jacinto - Last Filed: 02/03/21 22:49> - General Exam Comments Initial Comments: General: The patient is awake and alert, in no distress Eye: +3 mm pupils are equal, round and reactive to light, extra-ocular movements are intact. No nystagmus. There is normal conjunctiva bilaterally. No signs of icterus. Ears, nose, mouth and throat: There are moist mucous membranes and no oral lesions. Neck: The neck is supple, there is no tenderness or JVD. Cardiovascular: There is a regular rate and rhythm. No murmur, rub or gallop is appreciated. Respiratory: Respirations are non-labored, breath sounds are equal. Some expiratory wheeze--some rales, scatter rhonchi. but no stridor. Gastrointestinal: Soft, non-distended, non-tender abdomen without masses or organomegaly noted. There is no rebound or guarding present. Musculoskeletal: Normal ROM, no tenderness. Strength 5/5. Sensation intact. Radial and DP pulses equal bilaterally 2+. Neurological: A&O x 3. CN II-XII intact grossly, There are no obvious motor or sensory deficits. Coordination appears grossly intact. Speech is normal. Skin: Skin is warm and dry and no rashes or lesions are noted.b/l LE edema. Psychiatric: Cooperative, appropriate mood & affect, normal judgment. (Paris Jacinto) Course Vital Signs 02/03/21 02/03/21 02/03/21 16:27 17:11 17:23 Temperature 98 F Pulse Rate 85 80 84 Pulse Rate [ Pulse Oximetery ] Respiratory 16 Rate Blood Pressure 161/80 Blood Pressure [Left Arm] O2 Sat by Pulse 89 L Oximetry 02/03/21 02/03/21 02/04/21 18:57 23:31 00:00 Temperature 98.1 F Pulse Rate 84 70 Pulse Rate [ 81 Pulse Oximetery ] Respiratory 22 18 18 Rate Blood Pressure 142/72 152/96 Blood Pressure 155/95 [Left Arm] O2 Sat by Pulse 98 95 99 Oximetry Medical Decision Making - Lab Data Result diagrams: 02/03/21 17:04 02/03/21 17:04 <Paris Jacinto - Last Filed: 02/03/21 22:49> - Lab Data Result diagrams: 02/03/21 17:04 02/03/21 17:04 <Jana Maldonado - Last Filed: 02/05/21 09:45> - Medical Decision Making Hemoglobin consistent with baseline. Patient is found to be in heart failure with pleural effusions. Troponin elevated which we will trend as I feel this is likely secondary to demand. pt covid (-). pt has no fevers, or leukocytosis. clinically he appears to be fluid overloaded. CTA (-) for PE. patient given lasix and will be admitted for cardiology consultation. Dr Maldonado agreeable to care plan and admission. Dr Yu accepted admission. (Paris Jacinto) I was available for consultation in the emergency department. The history and physical exam were done by the midlevel provider. I was consulted for this patients care. I reviewed the case with the midlevel provider and based on their presentation of the patient, I agree with the assessment, medical decision making and plan of care as documented. Chart was dictated using [employer] dictation software. Attempts were made to correct any dictation errors however some typographical errors may persist. Patient was seen during a national state of emergency due to the Covid-19 pandemic. (Jana Maldonado) - Lab Data Lab Results 02/03/21 02/03/21 02/03/21 Range/Units 17:04 17:04 17:04 WBC 8.7 (3.8-10.6) k/uL RBC 2.78 L (4.30-5.90) m/uL Hgb 9.1 L (13.0-17.5) gm/dL Hct 27.3 L (39.0-53.0) % MCV 98.1 (80.0-100.0) fL MCH 32.5 (25.0-35.0) pg MCHC 33.2 (31.0-37.0) g/dL RDW 15.0 (11.5-15.5) % Plt Count 294 (150-450) k/uL MPV 7.9 Neutrophils % 82 % Lymphocytes % 6 % Monocytes % 5 % Eosinophils % 5 % Basophils % 0 % Neutrophils # 7.1 (1.3-7.7) k/uL Lymphocytes # 0.5 L (1.0-4.8) k/uL Monocytes # 0.4 (0-1.0) k/uL Eosinophils # 0.5 (0-0.7) k/uL Basophils # 0.0 (0-0.2) k/uL Hypochromasia Moderate PT 13.0 H (9.0-12.0) sec INR 1.3 H (<1.2) APTT 25.0 (22.0-30.0) sec D-Dimer 2.37 H (<0.60) mg/L FEU Sodium 147 H (137-145) mmol/L Potassium 4.4 (3.5-5.1) mmol/L Chloride 112 H (98-107) mmol/L Carbon Dioxide 29 (22-30) mmol/L Anion Gap 6 mmol/L BUN 34 H (9-20) mg/dL Creatinine 1.11 (0.66-1.25) mg/dL Est GFR (CKD-EPI)AfAm 69 (>60 ml/min/1.73 sqM) Est GFR (CKD-EPI)NonAf 60 (>60 ml/min/1.73 sqM) Glucose 114 H (74-99) mg/dL Plasma Lactic Acid Thor (0.7-2.0) mmol/L Calcium 8.5 (8.4-10.2) mg/dL Magnesium 2.6 H (1.6-2.3) mg/dL Total Bilirubin 0.8 (0.2-1.3) mg/dL AST 30 (17-59) U/L ALT 22 (4-49) U/L Alkaline Phosphatase 95 (38-126) U/L Troponin I (0.000-0.034) ng/mL NT-Pro-B Natriuret Pep pg/mL Total Protein 6.6 (6.3-8.2) g/dL Albumin 3.7 (3.5-5.0) g/dL Influenza Type A (PCR) (Not Detectd) Influenza Type B (PCR) (Not Detectd) RSV (PCR) (Not Detectd) SARS-CoV-2 (PCR) (Not Detectd) 02/03/21 02/03/21 02/03/21 Range/Units 17:04 17:04 17:04 WBC (3.8-10.6) k/uL RBC (4.30-5.90) m/uL Hgb (13.0-17.5) gm/dL Hct (39.0-53.0) % MCV (80.0-100.0) fL MCH (25.0-35.0) pg MCHC (31.0-37.0) g/dL RDW (11.5-15.5) % Plt Count (150-450) k/uL MPV Neutrophils % % Lymphocytes % % Monocytes % % Eosinophils % % Basophils % % Neutrophils # (1.3-7.7) k/uL Lymphocytes # (1.0-4.8) k/uL Monocytes # (0-1.0) k/uL Eosinophils # (0-0.7) k/uL Basophils # (0-0.2) k/uL Hypochromasia PT (9.0-12.0) sec INR (<1.2) APTT (22.0-30.0) sec D-Dimer (<0.60) mg/L FEU Sodium (137-145) mmol/L Potassium (3.5-5.1) mmol/L Chloride (98-107) mmol/L Carbon Dioxide (22-30) mmol/L Anion Gap mmol/L BUN (9-20) mg/dL Creatinine (0.66-1.25) mg/dL Est GFR (CKD-EPI)AfAm (>60 ml/min/1.73 sqM) Est GFR (CKD-EPI)NonAf (>60 ml/min/1.73 sqM) Glucose (74-99) mg/dL Plasma Lactic Acid Thor 1.3 (0.7-2.0) mmol/L Calcium (8.4-10.2) mg/dL Magnesium (1.6-2.3) mg/dL Total Bilirubin (0.2-1.3) mg/dL AST (17-59) U/L ALT (4-49) U/L Alkaline Phosphatase (38-126) U/L Troponin I 0.094 H* (0.000-0.034) ng/mL NT-Pro-B Natriuret Pep 6340 pg/mL Total Protein (6.3-8.2) g/dL Albumin (3.5-5.0) g/dL Influenza Type A (PCR) (Not Detectd) Influenza Type B (PCR) (Not Detectd) RSV (PCR) (Not Detectd) SARS-CoV-2 (PCR) (Not Detectd) 02/03/21 Range/Units 17:04 WBC (3.8-10.6) k/uL RBC (4.30-5.90) m/uL Hgb (13.0-17.5) gm/dL Hct (39.0-53.0) % MCV (80.0-100.0) fL MCH (25.0-35.0) pg MCHC (31.0-37.0) g/dL RDW (11.5-15.5) % Plt Count (150-450) k/uL MPV Neutrophils % % Lymphocytes % % Monocytes % % Eosinophils % % Basophils % % Neutrophils # (1.3-7.7) k/uL Lymphocytes # (1.0-4.8) k/uL Monocytes # (0-1.0) k/uL Eosinophils # (0-0.7) k/uL Basophils # (0-0.2) k/uL Hypochromasia PT (9.0-12.0) sec INR (<1.2) APTT (22.0-30.0) sec D-Dimer (<0.60) mg/L FEU Sodium (137-145) mmol/L Potassium (3.5-5.1) mmol/L Chloride (98-107) mmol/L Carbon Dioxide (22-30) mmol/L Anion Gap mmol/L BUN (9-20) mg/dL Creatinine (0.66-1.25) mg/dL Est GFR (CKD-EPI)AfAm (>60 ml/min/1.73 sqM) Est GFR (CKD-EPI)NonAf (>60 ml/min/1.73 sqM) Glucose (74-99) mg/dL Plasma Lactic Acid Thor (0.7-2.0) mmol/L Calcium (8.4-10.2) mg/dL Magnesium (1.6-2.3) mg/dL Total Bilirubin (0.2-1.3) mg/dL AST (17-59) U/L ALT (4-49) U/L Alkaline Phosphatase (38-126) U/L Troponin I (0.000-0.034) ng/mL NT-Pro-B Natriuret Pep pg/mL Total Protein (6.3-8.2) g/dL Albumin (3.5-5.0) g/dL Influenza Type A (PCR) Not Detected (Not Detectd) Influenza Type B (PCR) Not Detected (Not Detectd) RSV (PCR) Not Detected (Not Detectd) SARS-CoV-2 (PCR) Not Detected (Not Detectd) - EKG Data EKG Comments: Ventricular rate 79 bpm, QR hoahaoism 76 ms, QT/QTC 390/[address] elevation or depression. (Paris Jacinto) Disposition Is patient prescribed a controlled substance at d/c from ED?: No Time of Disposition: 20:45 Decision to Admit Reason: Admit from EC Decision Date: 02/03/21 Decision Time: 20:45 <Paris Jacinto - Last Filed: 02/03/21 22:49> <Jana Maldonado - Last Filed: 02/05/21 09:45> Clinical Impression: Dyspnea, Pleural effusion, Heart failure, Elevated troponin Disposition: ADMITTED IP TO THIS HOSP Condition: Stable
[2021-02-03] MEDS ORDERED: NALOXONE 0.4 MG/ML 1 ML VIAL IV PRN (20:42)
[2021-02-03] MEDS ORDERED: ASPIRIN 325 MG TAB PO SCH (23:15)
[2021-02-04] MEDS ORDERED: ACETAMINOPHEN TAB 325 MG TAB PO PRN (02:07)
--- NOTE | 2021-02-04 04:00 | P.HPIM ---
History of Present Illness H&P Date: 02/03/21 Chief Complaint: difficulty breathing 85 year old male with P. Afib on xarelto, dementia, parkinson , CAD, hypertension patient recently discharged from the hospital after presenting post fall resulting in occipital hematoma , anemia requiring 1 unit blood transfusion patient is unable to provide any meaningful history due to language Barrier. history obtained by reviewing ED chart. patient comes in with SOB of 1 week duration , he was found to have fluid overload on CT scan of the chest done due to elevated d dimer, showed no acute PE. Pro BNP >6000. elevated torps, hemoglobin improved compared to time of discharge. he is currently laying down comfortable in bed. denies any pain . Review of Systems Pertinent positives as noted in HPI. All other systems were reviewed and are negative Past Medical History Past Medical History: Atrial Fibrillation, Hyperlipidemia, Hypertension History of Any Multi-Drug Resistant Organisms: None Reported Past Surgical History: Heart Catheterization With Stent Additional Past Surgical History / Comment(s): nasal surgery as a young adult, per son Past Anesthesia/Blood Transfusion Reactions: No Reported Reaction Date of Last Stent Placement:: 2014 Past Psychological History: No Psychological Hx Reported Smoking Status: Never smoker Past Alcohol Use History: Rare Past Drug Use History: None Reported - Past Family History Father History Unknown: Yes Additional Family Medical History / Comment(s): of TB Mother Family Medical History: Myocardial Infarction ([place]) Brother(s) Additional Family Medical History / Comment(s): heart problems Medications and Allergies Home Medications Medication Instructions Recorded Confirmed Type Budesonide [Pulmicort Flexhaler] 1 puff INHALATION RT-BID 11/14/17 02/03/21 History Pravastatin Sodium [Pravachol] 80 mg PO HS 11/14/17 02/03/21 History Rivaroxaban [Xarelto] 20 mg PO DAILY 11/14/17 02/03/21 History Tiotropium 18 Mcg/Puff [Spiriva] 1 cap INHALATION RT-DAILY 11/14/17 02/03/21 History Brimonidine Tartrate [Alphagan P 1 drop BOTH EYES DAILY 11/15/20 02/03/21 History 0.2% Ophth Soln] Docusate [Colace] 100 mg PO DAILY 11/15/20 02/03/21 History Ergocalciferol (Vitamin D2) 50 mcg PO DAILY@1700 11/15/20 02/03/21 History [Vitamin D2 (2000 Iu)] Latanoprost [Xalatan 0.005%] 1 drop BOTH EYES HS 11/15/20 02/03/21 History Polyethylene Glycol 3350 [Miralax] 17 gm PO DAILY PRN 11/15/20 02/03/21 History Vitamin E 400 unit PO DAILY@1700 11/15/20 02/03/21 History Acetaminophen Tab [Tylenol] 650 mg PO Q6HR PRN tab 11/23/20 02/03/21 Rx Folic Acid 1 mg PO DAILY@1200 tab 11/23/20 02/03/21 Rx Aspirin 81 mg PO DAILY@1700 01/23/21 02/03/21 History Multivitamins, Thera [Multivitamin 1 tab PO DAILY@1200 01/23/21 02/03/21 History (formulary)] Donepezil [Aricept] 5 mg PO HS 30 Days #30 tab 01/28/21 02/03/21 Rx amLODIPine [Norvasc] 10 mg PO DAILY 30 Days #30 tablet 01/28/21 02/03/21 Rx carvediloL [Coreg] 3.125 mg PO BID@0900,1700 30 Days 01/28/21 02/03/21 Rx #60 tab Allergies Allergy/AdvReac Type Severity Reaction Status Date / Time No Known Allergies Allergy Verified 02/03/21 19:47 Physical Exam Vitals: Vital Signs Temp Pulse Pulse Resp BP BP Pulse Ox 02/04/21 00:00 98.1 F 81 18 155/95 99 02/03/21 23:31 70 18 152/96 95 02/03/21 18:57 84 22 142/72 98 02/03/21 17:23 84 02/03/21 17:11 80 02/03/21 16:27 98 F 85 16 161/80 89 L Intake and Output 02/03/21 02/03/21 02/04/21 14:59 22:59 06:59 Intake Total 10 Balance 10 Intake: IV 10 Invasive Line 1 10 Other: Voiding Method Diaper Weight 68.039 kg Constitutional: No acute distress, pleasant, cooperative, language barrier Eyes: Anicteric sclerae, moist conjunctiva, Pupils equal round reactive to light ENMT: NC/AT Oropharynx clear, no erythema, or exudates Neck: Supple, FROM, no masses, or JVD No carotid bruits No thyromegaly Lungs: decrease breath sounds at lung basis with rales bilaterally Clear to percussion Normal respiratory effort, no accessory muscle use Cardiovascular: Heart regular in rate and rhythm, systolic murmurs, no gallops, or rubs +2 bilateral peripheral edema Abdominal: Soft Nontender, no guarding, rebound or rigidity Abdomen moving with respiration Normoactive bowel sounds No hepatomegaly, No splenomegaly No palpable mass No abdominal wall hernia noted Skin: Normal temperature, tone, texture, turgor No induration No subcutaneous nodules No rash, lesions No ulcers Extremities: No digital cyanosis No clubbing Pedal pulses intact and symmetrical Radial pulses intact and symmetrical No calf tenderness Psychiatric: Alert and oriented to person, place Neuro Muscles Strength 4/5 in all 4 extremities Sensation to light touch grossly present throughout Cranial nerves II-XII grossly intact No focal sensory deficits Lymphatics: no palpable cervical or supraclavicular , or inguinal lymph nodes Results CBC & Chem 7: 02/03/21 17:04 02/03/21 17:04 Labs: Abnormal Lab Results - Last 24 Hours (Table) 02/03/21 02/03/21 02/03/21 Range/Units 17:04 17:04 17:04 RBC 2.78 L (4.30-5.90) m/uL Hgb 9.1 L (13.0-17.5) gm/dL Hct 27.3 L (39.0-53.0) % Lymphocytes # 0.5 L (1.0-4.8) k/uL PT 13.0 H (9.0-12.0) sec INR 1.3 H (<1.2) D-Dimer 2.37 H (<0.60) mg/L FEU Sodium 147 H (137-145) mmol/L Chloride 112 H (98-107) mmol/L BUN 34 H (9-20) mg/dL Glucose 114 H (74-99) mg/dL Magnesium 2.6 H (1.6-2.3) mg/dL Troponin I (0.000-0.034) ng/mL 02/03/21 02/03/21 Range/Units 17:04 23:52 RBC (4.30-5.90) m/uL Hgb (13.0-17.5) gm/dL Hct (39.0-53.0) % Lymphocytes # (1.0-4.8) k/uL PT (9.0-12.0) sec INR (<1.2) D-Dimer (<0.60) mg/L FEU Sodium (137-145) mmol/L Chloride (98-107) mmol/L BUN (9-20) mg/dL Glucose (74-99) mg/dL Magnesium (1.6-2.3) mg/dL Troponin I 0.094 H* 0.078 H* (0.000-0.034) ng/mL Assessment and Plan Assessment: dyspnea rule out acute CHF recent echo showing LVEF 55-60% iv lasix BID monitor urine output cardiology eval echocardiogram check TSH trend trops chronic anemia improving compared to time of last discharge history of CAD s/p stents P. Afib , on xarelto resume cardiac meds dementia and parkinsons resume home meds COPD resume inhalers recent history of fall , PT eval Preformed a thorough record review from recent hospitalization accidental fall , with head injury , resulting in occipital hematoma CODE STATUS:full code DVT prophylaxis: on xarelto Discussed with: Patient, ER, RN Anticipated length of stay > than [address]: pending clinical course A total of 65 minutes was spent on the care of this complex patient more than 50% of the time was spent in counseling and care coordination.
[2021-02-04] MEDS: IPRATROPIUM 0.5 MG/2.5 ML NEBU INHALATION SCH ×4 (08:11→20:24)
[2021-02-04] MEDS: FLUTICASONE 110 MCG INHALER INHALATION SCH ×2 (08:11→20:24)
[2021-02-04] MEDS: FUROSEMIDE 10 MG/ML 4 ML VIAL IV SCH ×2 (08:44→20:57)
[2021-02-04] MEDS: amLODIPine 10 MG TAB PO SCH (08:45)
[2021-02-04] MEDS: carvediloL 3.125 MG TAB PO SCH ×2 (08:45→17:09)
[2021-02-04] MEDS: DOCUSATE 100 MG CAP PO SCH (08:45)
[2021-02-04] MEDS: BRIMONIDINE TARTRATE 0.2% DROPS 5 ML BTL BOTH EYES SCH (08:45)
[2021-02-04] MEDS: RIVAROXABAN 20 MG TAB PO SCH (08:45)
[2021-02-04] MEDS: SPIRONOLACTONE 25 MG TAB PO SCH (12:40)
--- NOTE | 2021-02-04 12:41 | ECHOF ---
Referral Reason:pleural effusion , bilateral leg edema, ?CHF MEASUREMENTS -------- HEIGHT: 172.7 cm WEIGHT: 68.0 kg BP: 154/78 RVIDd: 3.2 cm (< 3.3) IVSd: 1.4 cm (0.6 - 1.1) LVIDd: 3.7 cm (3.9 - 5.3) LVPWd: 1.6 cm (0.6 - 1.1) IVSs: 1.9 cm LVIDs: 2.5 cm LVPWs: 1.8 cm LAESV Index (A-L): 63.62 ml/m Ao Diam: 3.7 cm (2.0 - 3.7) AV Cusp: 1.1 cm (1.5 - 2.6) MV EXCURSION: 6.342 mm (> 18.000) MV EF SLOPE: 42 mm/s (70 - 150) EPSS: 1.2 cm MV E Tom: 1.58 m/s MV DecT: 213 ms MV A Tom: 1.12 m/s MV E/A Ratio: 1.41 AV maxP.17 mmHg AV meanP.53 mmHg AR PHT: 633 ms RAP: 5.00 mmHg RVSP: 51.02 mmHg FINDINGS -------- Sinus rhythm. This was a technically adequate study. The left ventricular size is normal. There is moderate concentric left ventricular hypertrophy. O verall left ventricular systolic function is normal with, an EF between 55 - 60 %. Left ventricular fillimg pressure cannot be estimated due to severe mitral annular calcification. The right ventricle is normal in size. LA is severely dilated >40 ml/m2 The right atrium is mildly enlarged. Interatrial and interventricular septum intact. There is dsmo-fg-wspvgkfy aortic regurgitation. There is qzokrmie-mn-fdhpza aortic stenosis present . Peak/mean gradient across the Aortic Valve is 63.17mmHg / 39.53mmHg. Severe mitral annular calcification present. Lvrdbzbz-hn-wziwuf mitral regurgitation is present. Moderate tricuspid regurgitation present. There is moderate to severe pulmonary hypertension. The right ventricular systolic pressure, as measured by Doppler, is 51.02mmHg. Trace/mild (physiologic) pulmonic regurgitation. The aortic root size is normal. IVC Not well visulized. There is no pericardial effusion. CONCLUSIONS -------- 1. There is moderate concentric left ventricular hypertrophy. 2. Overall left ventricular systolic function is normal with, an EF between 55 - 60 %. 3. LA is severely dilated >40 ml/m2 4. The right atrium is mildly enlarged. 5. There is qejc-sz-njkzaxlj aortic regurgitation. 6. There is utefvadl-sj-wmnkqi aortic stenosis present. 7. Peak/mean gradient across the Aortic Valve is 63.17mmHg / 39.53mmHg. 8. Severe mitral annular calcification present. 9. Vyecvcqq-ft-ydrvcq mitral regurgitation is present. 10. Moderate tricuspid regurgitation present. 11. There is moderate to severe pulmonary hypertension. 12. Trace/mild (physiologic) pulmonic regurgitation. 13. There is no pericardial effusion. TEAM SUPERVISOR: Talia Hair RDCS
--- NOTE | 2021-02-04 14:52 | P.CRDCN ---
History of Present Illness History of present illness: HISTORY OF PRESENTING ILLNESS This is a pleasant 85 -year-old male past medical history significant for hypertension, dyslipidemia, coronary artery disease with prior stent placements, paroxysmal atrial fibrillation on Xarelto. He follows with a tree doctor at [place]. We have been asked to see in consultation for congestive heart failure and elevated troponin Patient is seen and examined at bedside. Presents emergency department with worsening shortness of breath and increased lower extremity edema. EKG revealed sinus rhythm heart rate 79, no significant STT wave abnormalities. Patient denies chest pain, palpitations, dizziness or lightheadedness. Laboratory data reviewed, d-dimer 2.37, BNP 6340, WBC 8.7, hemoglobin 9.1, platelets 294, sodium 147, serum creatinine 1.11, COVID-19 negative. Patient denies any chest discomfort. Current home cardiac medications include carvedilol 3.125 mg twice a day, amlodipine 10 mg daily, Xarelto 20 mg daily, pravastatin 80 mg nightly, aspirin 81 mg daily. Chest x-ray advanced pulmonary edema versus multifocal bronchopneumonia CT chest revealed large bilateral pleural effusions, negative for pulmonary embolism, focal ill defined ground glass PACs stress of multifocal bronchopneumonia REVIEW OF SYSTEMS At the time of my exam: CONSTITUTIONAL: Denies fever or chills. CARDIOVASCULAR: Positive shortness of breath Denies chest pain, orthopnea, PND or palpitations. RESPIRATORY: Denies cough. GASTROINTESTINAL: Denies abdominal pain, diarrhea, constipation, nausea or vomiting. MUSCULOSKELETAL: Denies myalgias. NEUROLOGIC: Denies numbness, tingling, headacbe or weakness. ENDOCRINE: Denies fatigue, weight change, polydipsia or polyurina. GENITOURINARY: Denies burning, hematuria or urgency with micturation. HEMATOLOGIC: Denies history of anemia or bleeding. PHYSICAL EXAMINATION Blood pressure 152/80 heart rate 76 afebrile 100% on 2 L nasal cannula CONSTITUTIONAL: No apparent distress. HEENT: Head is normocephalic. Pupils are equal, round. Sclerae anicteric. Mucous membranes of the mouth are moist. No JVD. No carotid bruit. CHEST EXAMINATION: Lungs are diminshed to auscultation. No chest wall tenderness is noted on palpation or with deep breathing. HEART EXAMINATION: Regular rate and rhythm. S1, S2 heard. Systolic murmur heard. gallops or rub. ABDOMEN: Soft, nontender. Positive bowel sounds. EXTREMITIES: 2+ peripheral pulses, 4+ lower extremity edema and no calf tenderness. NEUROLOGIC EXAMINATION: Patient is awake, alert and oriented x3. ASSESSMENT Shortness of breath, CT results as above Hypertension Dyslipidemia Coronary artery disease with prior stent placements Paroxysmal atrial fibrillation PLAN We will obtain records from [place] Obtain 2D echocardiogram Start sprionolactone 25mg daily Continue IV Diuresis 40mg BID Continue aspirin, amlodipine, Xarelto, statin. Further recommendations to follow Nurse Practitioner note has been reviewed, I agree with a documented findings an d plan of care. Patient was seen and examined. Past Medical History Past Medical History: Atrial Fibrillation, Hyperlipidemia, Hypertension History of Any Multi-Drug Resistant Organisms: None Reported Past Surgical History: Heart Catheterization With Stent Additional Past Surgical History / Comment(s): nasal surgery as a young adult, per son Past Anesthesia/Blood Transfusion Reactions: No Reported Reaction Date of Last Stent Placement:: 2014 Past Psychological History: No Psychological Hx Reported Smoking Status: Never smoker Past Alcohol Use History: Rare Past Drug Use History: None Reported - Past Family History Father History Unknown: Yes Additional Family Medical History / Comment(s): of TB Mother Family Medical History: Myocardial Infarction ([place]) Brother(s) Additional Family Medical History / Comment(s): heart problems Medications and Allergies Home Medications Medication Instructions Recorded Confirmed Type Budesonide [Pulmicort Flexhaler] 1 puff INHALATION RT-BID 11/14/17 02/03/21 History Pravastatin Sodium [Pravachol] 80 mg PO HS 11/14/17 02/03/21 History Rivaroxaban [Xarelto] 20 mg PO DAILY 11/14/17 02/03/21 History Tiotropium 18 Mcg/Puff [Spiriva] 1 cap INHALATION RT-DAILY 11/14/17 02/03/21 History Brimonidine Tartrate [Alphagan P 1 drop BOTH EYES DAILY 11/15/20 02/03/21 History 0.2% Ophth Soln] Docusate [Colace] 100 mg PO DAILY 11/15/20 02/03/21 History Ergocalciferol (Vitamin D2) 50 mcg PO DAILY@1700 11/15/20 02/03/21 History [Vitamin D2 (2000 Iu)] Latanoprost [Xalatan 0.005%] 1 drop BOTH EYES HS 11/15/20 02/03/21 History Polyethylene Glycol 3350 [Miralax] 17 gm PO DAILY PRN 11/15/20 02/03/21 History Vitamin E 400 unit PO DAILY@1700 11/15/20 02/03/21 History Acetaminophen Tab [Tylenol] 650 mg PO Q6HR PRN tab 11/23/20 02/03/21 Rx Folic Acid 1 mg PO DAILY@1200 tab 11/23/20 02/03/21 Rx Aspirin 81 mg PO DAILY@1700 01/23/21 02/03/21 History Multivitamins, Thera [Multivitamin 1 tab PO DAILY@1200 01/23/21 02/03/21 History (formulary)] Donepezil [Aricept] 5 mg PO HS 30 Days #30 tab 01/28/21 02/03/21 Rx amLODIPine [Norvasc] 10 mg PO DAILY 30 Days #30 tablet 01/28/21 02/03/21 Rx carvediloL [Coreg] 3.125 mg PO BID@0900,1700 30 Days 01/28/21 02/03/21 Rx #60 tab Allergies Allergy/AdvReac Type Severity Reaction Status Date / Time No Known Allergies Allergy Verified 02/03/21 19:47 Physical Exam Vitals: Vital Signs Temp Pulse Pulse Resp BP BP Pulse Ox 02/04/21 04:00 98.0 F 18 154/78 95 02/04/21 02:00 18 02/04/21 00:00 98.1 F 81 18 155/95 99 02/03/21 23:31 70 18 152/96 95 02/03/21 18:57 84 22 142/72 98 02/03/21 17:23 84 02/03/21 17:11 80 02/03/21 16:27 98 F 85 16 161/80 89 L Intake and Output 02/03/21 02/04/21 02/04/21 22:59 06:59 14:59 Intake Total 20 Balance 20 Intake: IV 20 Invasive Line 1 20 Other: Voiding Method Diaper # Voids 2 Weight 68.039 kg 74.5 kg Results 02/03/21 17:04 02/03/21 17:04 Cardiac Enzymes 02/03/21 02/03/21 02/03/21 Range/Units 17:04 17:04 23:52 AST 30 (17-59) U/L Troponin I 0.094 H* 0.078 H* (0.000-0.034) ng/mL Coagulation 02/03/21 Range/Units 17:04 PT 13.0 H (9.0-12.0) sec APTT 25.0 (22.0-30.0) sec CBC 02/03/21 Range/Units 17:04 WBC 8.7 (3.8-10.6) k/uL RBC 2.78 L (4.30-5.90) m/uL Hgb 9.1 L (13.0-17.5) gm/dL Hct 27.3 L (39.0-53.0) % Plt Count 294 (150-450) k/uL Comprehensive Metabolic Panel 02/03/21 Range/Units 17:04 Sodium 147 H (137-145) mmol/L Potassium 4.4 (3.5-5.1) mmol/L Chloride 112 H (98-107) mmol/L Carbon Dioxide 29 (22-30) mmol/L BUN 34 H (9-20) mg/dL Creatinine 1.11 (0.66-1.25) mg/dL Glucose 114 H (74-99) mg/dL Calcium 8.5 (8.4-10.2) mg/dL AST 30 (17-59) U/L ALT 22 (4-49) U/L Alkaline Phosphatase 95 (38-126) U/L Total Protein 6.6 (6.3-8.2) g/dL Albumin 3.7 (3.5-5.0) g/dL Current Medications Generic Name Dose Route Start Last Admin Trade Name Freq PRN Reason Stop Dose Admin Acetaminophen 650 mg 02/04/21 02:07 Acetaminophen Tab 325 Mg Tab PO Q6HR PRN Mild Pain or Fever > 100.5 Amlodipine Besylate 10 mg 02/04/21 09:00 Amlodipine 10 Mg Tab PO DAILY RIRI Aspirin 81 mg 02/04/21 17:00 Aspirin 81 Mg PO DAILY@1700 [facility] Brimonidine Tartrate 1 drops 02/04/21 09:00 Brimonidine Tartrate 0.2% Drops 5 Ml Btl BOTH EYES DAILY [facility] Carvedilol 3.125 mg 02/04/21 09:00 Carvedilol 3.125 Mg Tab PO BID@0900,1700 [facility] Docusate Sodium 100 mg 02/04/21 09:00 Docusate 100 Mg Cap PO DAILY [facility] Donepezil HCl 5 mg 02/04/21 21:00 Donepezil 5 Mg Tab PO HS [facility] Fluticasone Propionate 1 puff 02/04/21 08:00 Fluticasone 110 Mcg Inhaler INHALATION RT-BID RIRI Furosemide 40 mg 02/04/21 09:00 Furosemide 10 Mg/Ml 4 Ml Vial IV Q12HR [facility] Ipratropium [place] 0.5 mg 02/04/21 08:00 Ipratropium 0.5 Mg/2.5 Ml Nebu INHALATION RT-QID [facility] Latanoprost 1 drops 02/04/21 21:00 Latanoprost 0.005% Ophth Drops 2.5 Ml Btl BOTH EYES HS [facility] Naloxone HCl 0.2 mg 02/03/21 20:42 Naloxone 0.4 Mg/Ml 1 Ml Vial IV Q2M PRN Opioid Reversal Pravastatin Sodium 80 mg 02/04/21 21:00 Pravastatin Sodium 80 Mg Tab PO HS [facility] Rivaroxaban 20 mg 02/04/21 09:00 Rivaroxaban 20 Mg Tab PO DAILY [facility] Intake and Output 02/03/21 02/04/21 02/04/21 22:59 06:59 14:59 Intake Total 20 Balance 20 Intake: IV 20 Invasive Line 1 20 Other: Voiding Method Diaper # Voids 2 Weight 68.039 kg 74.5 kg 02/03/21 17:04 02/03/21 17:04
--- NOTE | 2021-02-04 15:46 | P.PN ---
Subjective Progress Note Date: 02/04/21 Pt appeared to be confused today with bilingual interpreter line; had many questions about payment, and appeared to be attempting to translate the bilingual interpreter on the phone to [place] rather than expressing his symptoms in his own language. From what I gathered, he does appear to have complaints of increased swelling, dyspnea, and pain in the left knee. Objective - Vital Signs Vital signs: Vital Signs Temp 98 F 02/04/21 08:30 Pulse 82 02/04/21 15:36 Resp 18 02/04/21 12:45 BP 152/80 02/04/21 11:30 Pulse Ox 100 02/04/21 11:30 Intake & Output 02/03/21 02/04/21 02/04/21 18:59 06:59 18:59 Intake Total 20 860 Output Total 650 Balance 20 210 Weight 68.039 kg 74.5 kg Intake: IV 20 20 Invasive Line 1 20 20 Oral 840 Output: Urine 650 Other: Voiding Method Diaper Diaper # Voids 2 - Exam Gen: awake, appears confused HEENT: normocephalic, atraumatic, good hearing acuity, moist mucous membranes Resp: good air exchange, breathing comfortably with no accessory muscle use, posterior crackles bilaterally up to mid chest CVS: good distal perfusion x 4, irregular rhythm, regular rate GI: soft, NTTP, ND, appropriate bowel sounds : no SPT, no CVAT, solomon catheter not present MSK: 4+ pitting edema, no clubbing Neuro: non-focal, moving all extremities Psych: cooperative, euthymic mood - Labs CBC & Chem 7: 02/03/21 17:04 02/03/21 17:04 Labs: Abnormal Lab Results - Last 24 Hours (Table) 02/03/21 02/03/21 02/03/21 Range/Units 17:04 17:04 17:04 RBC 2.78 L (4.30-5.90) m/uL Hgb 9.1 L (13.0-17.5) gm/dL Hct 27.3 L (39.0-53.0) % Lymphocytes # 0.5 L (1.0-4.8) k/uL PT 13.0 H (9.0-12.0) sec INR 1.3 H (<1.2) D-Dimer 2.37 H (<0.60) mg/L FEU Sodium 147 H (137-145) mmol/L Chloride 112 H (98-107) mmol/L BUN 34 H (9-20) mg/dL Glucose 114 H (74-99) mg/dL Magnesium 2.6 H (1.6-2.3) mg/dL Troponin I (0.000-0.034) ng/mL 02/03/21 02/03/21 Range/Units 17:04 23:52 RBC (4.30-5.90) m/uL Hgb (13.0-17.5) gm/dL Hct (39.0-53.0) % Lymphocytes # (1.0-4.8) k/uL PT (9.0-12.0) sec INR (<1.2) D-Dimer (<0.60) mg/L FEU Sodium (137-145) mmol/L Chloride (98-107) mmol/L BUN (9-20) mg/dL Glucose (74-99) mg/dL Magnesium (1.6-2.3) mg/dL Troponin I 0.094 H* 0.078 H* (0.000-0.034) ng/mL Assessment and Plan Assessment: Acute on chronic congestive heart failure exacerbation, diastolic Severe mitral regurgitation Severe pulmonary hypertension Moderate to severe aortic stenosis recent echo showing LVEF 55-60% iv lasix 40 mg BID monitor urine output cardiology eval , she recommendations echocardiogram = EF 55-60%, moderate to severe , MR, pulmonary hypertension check TSH, pending trend trops = 0.78 --> pending BNP = 6340 chronic anemia improving compared to time of last discharge history of CAD s/p stents P. Afib , on xarelto resume cardiac meds dementia and parkinsons resume home meds COPD without exacerbation resume inhalers recent history of fall , PT/OT eval Preformed a thorough record review from recent hospitalization accidental fall , with head injury , resulting in occipital hematoma CODE STATUS:full code DVT prophylaxis: on xarelto Discussed with: Patient, ER, RN Anticipated length of stay > than [address]: pending clinical course
[2021-02-04] MEDS: ASPIRIN 81 MG PO SCH (17:09)
[2021-02-04] MEDS: PRAVASTATIN SODIUM 80 MG TAB PO SCH (20:58)
[2021-02-04] MEDS: DONEPEZIL 5 MG TAB PO SCH (20:58)
[2021-02-04] MEDS: LATANOPROST 0.005% OPHTH DROPS 2.5 ML BTL BOTH EYES SCH (20:58)
[2021-02-05] MEDS: IPRATROPIUM 0.5 MG/2.5 ML NEBU INHALATION SCH ×4 (08:45→19:21)
[2021-02-05] MEDS: FLUTICASONE 110 MCG INHALER INHALATION SCH ×2 (08:46→19:21)
[2021-02-05] MEDS: BRIMONIDINE TARTRATE 0.2% DROPS 5 ML BTL BOTH EYES SCH (09:34)
[2021-02-05] MEDS: FUROSEMIDE 10 MG/ML 4 ML VIAL IV SCH ×2 (09:34→20:05)
[2021-02-05] MEDS: DOCUSATE 100 MG CAP PO SCH (09:34)
[2021-02-05] MEDS: SPIRONOLACTONE 25 MG TAB PO SCH (09:34)
[2021-02-05] MEDS: RIVAROXABAN 20 MG TAB PO SCH (09:34)
[2021-02-05] MEDS: carvediloL 6.25 MG TAB PO SCH ×2 (09:34→18:15)
[2021-02-05] MEDS: amLODIPine 10 MG TAB PO SCH (09:34)
--- NOTE | 2021-02-05 10:54 | P.PN ---
Subjective Progress Note Date: 02/05/21 Patient feels okay, no chest pain no abdominal pain, no nausea no vomiting no dizziness no shortness of breath and he is in bed, does not appear to be in distress Objective - Vital Signs Vital signs: Vital Signs Temp 97.9 F 02/05/21 04:00 Pulse 84 02/05/21 08:59 Resp 20 02/05/21 04:00 BP 135/75 02/05/21 04:00 Pulse Ox 96 02/05/21 04:00 Intake & Output 02/04/21 02/05/21 02/05/21 18:59 06:59 18:59 Intake Total 1660 480 240 Output Total 1200 400 450 Balance 460 80 -210 Weight 72 kg Intake: IV 20 Invasive Line 1 20 Oral 1640 480 240 Output: Urine 1200 400 450 Other: Voiding Method Diaper External Catheter - Exam Gen: awake, appears confused likely at baseline. HEENT: normocephalic, atraumatic, good hearing acuity, moist mucous membranes Resp: Decreased breath sounds, no wheezing CVS: good distal perfusion x 4, irregular rhythm, regular rate GI: soft, NTTP, ND, appropriate bowel sounds : no SPT, no CVAT, solomon catheter not present MSK: 2+ pitting edema, no clubbing Neuro: non-focal, moving all extremities Psych: cooperative - Labs CBC & Chem 7: 02/03/21 17:04 02/03/21 17:04 Assessment and Plan Plan: Acute on chronic congestive heart failure exacerbation, diastolic Severe mitral regurgitation Severe pulmonary hypertension Moderate to severe aortic stenosis recent echo showing LVEF 55-60% Continue iv lasix 40 mg BID, was started on Aldactone. cardiology eval , input appreciated. echocardiogram = EF 55-60%, moderate to severe , MR, pulmonary hypertension chronic anemia likely iron deficiency. Monitor H&H history of CAD s/p stents Supportive care P. Afib , on xarelto dementia and parkinsons Supportive care, continue outpatient medications COPD without exacerbation Oxygen and bronchodilators as indicated, patient is on 2 L of oxygen recent history of fall , PT/OT eval CODE STATUS:full code DVT prophylaxis: on xarelto Anticipated discharge place: pending clinical course likely needs rehab
[2021-02-05 11:58] LABS: Potassium 3.6 mmol/L (3.5-5.1)
[2021-02-05 11:59] LABS: Calcium 7.9 mg/dL (8.4-10.2)
--- NOTE | 2021-02-05 13:09 | P.PN ---
Subjective Progress Note Date: 02/05/21 HISTORY OF PRESENTING ILLNESS This is a pleasant 85 -year-old male past medical history significant for hypertension, dyslipidemia, coronary artery disease with prior stent placements, paroxysmal atrial fibrillation on Xarelto. He follows with a sample maker at [place]. We have been asked to see in consultation for congestive heart failure and elevated troponin Patient is seen and examined at bedside. Presents emergency department with worsening shortness of breath and increased lower extremity edema. EKG revealed sinus rhythm heart rate 79, no significant STT wave abnormalities. Patient denies chest pain, palpitations, dizziness or lightheadedness. Laboratory data reviewed, d-dimer 2.37, BNP 6340, WBC 8.7, hemoglobin 9.1, platelets 294, sodium 147, serum creatinine 1.11, COVID-19 negative. Patient denies any chest discomfort. Current home cardiac medications include carvedilol 3.125 mg twice a day, amlodipine 10 mg daily, Xarelto 20 mg daily, pravastatin 80 mg nightly, aspirin 81 mg daily. Chest x-ray advanced pulmonary edema versus multifocal bronchopneumonia CT chest revealed large bilateral pleural effusions, negative for pulmonary embolism, focal ill defined ground glass PACs stress of multifocal bronchopneumonia 02/05: Patient denies any new complaints. His road consultant has been a sinus rhythm in the 50s and jumped up to 138 converted to atrial fibrillation this morning. Coreg increased to 6.25 mg. He continues to have lower extremity edema. Endocrine continue Lasix at same dose of 40 mg every 12 hours IV. Sodium 141, potassium 3.6, chloride 104, CO2 33, BUN 36 and creatinine 1.15. Echo cardiogram reveals EF of 55-60%, LAD severely dilated greater than 40 mL per M2, mild to moderate aortic regurgitation, moderate to severe aortic stenosis, moderate to severe mitral regurgitation, moderate tricuspid regurgitation, moderate to severe pulmonary hypertension PHYSICAL EXAMINATION Blood pressure 152/80 heart rate 76 afebrile 100% on 2 L nasal cannula CONSTITUTIONAL: No apparent distress. HEENT: Head is normocephalic. Pupils are equal, round. Sclerae anicteric. Mucous membranes of the mouth are moist. No JVD. No carotid bruit. CHEST EXAMINATION: Lungs are diminshed to auscultation. No chest wall tenderness is noted on palpation or with deep breathing. HEART EXAMINATION: Regular rate and rhythm. S1, S2 heard. Systolic murmur heard. gallops or rub. ABDOMEN: Soft, nontender. Positive bowel sounds. EXTREMITIES: 2+ peripheral pulses, 3+ lower extremity edema and no calf tenderness. NEUROLOGIC EXAMINATION: Patient is awake, alert and oriented x3. ASSESSMENT Shortness of breath, CT results as above Hypertension Dyslipidemia Coronary artery disease with prior stent placements Paroxysmal atrial fibrillation Valvular heart disease with mild to moderate aortic regurgitation, moderate to severe aortic stenosis, moderate to severe mitral regurgitation, moderate tricuspid regurgitation Moderate to severe pulmonary hypertension PLAN We will obtain records from [facility] Coreg 6.25 mg twice daily Continue IV Lasix at 40 mg twice daily, monitor I&O and daily weights. Repeat electrolytes in the morning. Continue sprionolactone 25mg daily Continue aspirin, amlodipine, Xarelto, statin. Further recommendations to follow Nurse Practitioner note has been reviewed, I agree with a documented findings and plan of care. Patient was seen and examined. Objective - Vital Signs Vital signs: Vital Signs Temp 97.9 F 02/05/21 04:00 Pulse 84 02/05/21 08:59 Resp 20 02/05/21 04:00 BP 135/75 02/05/21 04:00 Pulse Ox 96 02/05/21 04:00 Intake & Output 02/04/21 02/05/21 02/05/21 18:59 06:59 18:59 Intake Total 1660 480 240 Output Total 1200 400 450 Balance 460 80 -210 Weight 72 kg Intake: IV 20 Invasive Line 1 20 Oral 1640 480 240 Output: Urine 1200 400 450 Other: Voiding Method Diaper External Catheter - Labs CBC & Chem 7: 02/03/21 17:04 02/05/21 10:50
[2021-02-05] MEDS: ASPIRIN 81 MG PO SCH (18:15)
[2021-02-05] MEDS: PRAVASTATIN SODIUM 80 MG TAB PO SCH (20:05)
[2021-02-05] MEDS: LATANOPROST 0.005% OPHTH DROPS 2.5 ML BTL BOTH EYES SCH (20:05)
[2021-02-05] MEDS: DONEPEZIL 5 MG TAB PO SCH (20:05)
[2021-02-06] MEDS: carvediloL 6.25 MG TAB PO SCH ×2 (06:38→17:18)
[2021-02-06] MEDS: IPRATROPIUM 0.5 MG/2.5 ML NEBU INHALATION SCH ×4 (08:09→20:10)
[2021-02-06] MEDS: FLUTICASONE 110 MCG INHALER INHALATION SCH ×2 (08:09→20:10)
[2021-02-06] MEDS: RIVAROXABAN 20 MG TAB PO SCH (08:25)
[2021-02-06] MEDS: FUROSEMIDE 10 MG/ML 4 ML VIAL IV SCH (08:25)
[2021-02-06] MEDS: amLODIPine 10 MG TAB PO SCH (08:25)
[2021-02-06] MEDS: SPIRONOLACTONE 25 MG TAB PO SCH (08:25)
[2021-02-06] MEDS: DOCUSATE 100 MG CAP PO SCH (08:25)
[2021-02-06] MEDS: BRIMONIDINE TARTRATE 0.2% DROPS 5 ML BTL BOTH EYES SCH ×2 (08:26→21:39)
[2021-02-06 08:37] LABS: Basophils % (A) 1 %; Eosinophils # (A) 0.7 k/uL (0-0.7); Eosinophils % (A) 11 %; HCT 27.4 % (39.0-53.0); HGB 9.1 gm/dL (13.0-17.5); Hypochromasia Moderate; Lymphocytes # (A) 0.8 k/uL (1.0-4.8); Lymphocytes % (A) 12 %; MCH 32.4 pg (25.0-35.0); MCHC 33.1 g/dL (31.0-37.0); MCV 97.8 fL (80.0-100.0); Mean Platelet Volume 7.7; Monocytes # (A) 0.3 k/uL (0-1.0); Monocytes % (A) 5 %; Neutrophils # (A) 4.6 k/uL (1.3-7.7); Neutrophils % (A) 70 %; Platelet Count 303 k/uL (150-450); RDW 14.4 % (11.5-15.5); WBC 6.5 k/uL (3.8-10.6)
[2021-02-06 08:55] LABS: Albumin 3.1 g/dL (3.5-5.0); Calcium 8.1 mg/dL (8.4-10.2); Potassium 4.1 mmol/L (3.5-5.1); Total Bilirubin 0.6 mg/dL (0.2-1.3)
--- NOTE | 2021-02-06 10:07 | P.PN ---
Subjective Progress Note Date: 02/06/21 Patient feels okay, no chest pain no abdominal pain, no nausea no vomiting no dizziness no shortness of breath . No major overnight changes. Started on 2-3 L of oxygen Objective - Vital Signs Vital signs: Vital Signs Temp 98.3 F 02/06/21 04:00 Pulse 72 02/06/21 08:22 Resp 18 02/06/21 04:00 BP 160/70 02/06/21 04:00 Pulse Ox 97 02/06/21 04:00 Intake & Output 02/05/21 02/06/21 02/06/21 18:59 06:59 18:59 Intake Total 305 622 3551 Output Total 1100 Balance -844 502 3651 Weight 72.5 kg Intake: Oral 633 223 5704 Output: Urine 1100 Other: Voiding Method External Catheter External Catheter # Voids 1 - Exam Gen: awake, appears confused likely at baseline. HEENT: normocephalic, atraumatic, good hearing acuity, moist mucous membranes Resp: Decreased breath sounds, no wheezing CVS: good distal perfusion x 4, irregular rhythm, regular rate GI: soft, NTTP, ND, appropriate bowel sounds MSK: 1-2 + pitting edema, no clubbing Neuro: non-focal, moving all extremities Psych: cooperative - Labs CBC & Chem 7: 02/06/21 07:52 02/06/21 07:52 Labs: Abnormal Lab Results - Last 24 Hours (Table) 02/05/21 02/06/21 02/06/21 Range/Units 10:50 07:52 07:52 RBC 2.80 L (4.30-5.90) m/uL Hgb 9.1 L (13.0-17.5) gm/dL Hct 27.4 L (39.0-53.0) % Lymphocytes # 0.8 L (1.0-4.8) k/uL Carbon Dioxide 33 H 34 H (22-30) mmol/L BUN 36 H 39 H (9-20) mg/dL Glucose 114 H (74-99) mg/dL Calcium 7.9 L 8.1 L (8.4-10.2) mg/dL Total Protein 6.0 L (6.3-8.2) g/dL Albumin 3.1 L (3.5-5.0) g/dL Assessment and Plan Plan: Acute on chronic congestive heart failure exacerbation, diastolic Severe mitral regurgitation Severe pulmonary hypertension Moderate to severe aortic stenosis recent echo showing LVEF 55-60% Continue iv lasix 40 mg BID, was started on Aldactone. Continue Coreg. cardiology eval , input appreciated. echocardiogram = EF 55-60%, moderate to severe , MR, pulmonary hypertension chronic anemia likely iron deficiency. Monitor H&H history of CAD s/p stents Supportive care P. Afib , on xarelto dementia and parkinsons Supportive care, continue outpatient medications COPD without exacerbation Oxygen and bronchodilators as indicated, patient is on 2-3 L of oxygen recent history of fall , PT/OT eval CODE STATUS:full code DVT prophylaxis: on xarelto Anticipated discharge place: pending clinical course likely needs rehab, will follow
[2021-02-06] MEDS: ASPIRIN 81 MG PO SCH (17:18)
[2021-02-06] MEDS: FUROSEMIDE 40 MG TAB PO SCH (17:18)
--- NOTE | 2021-02-06 18:03 | P.PN ---
Subjective Progress Note Date: 02/06/21 This patient with history of hypertension, dyslipidemia, coronary artery disease, paroxysmal atrial fibrillation who follows with a laser/electro optics technician in [facility], was admitted to the hospital with increasing symptoms of shortness of breath and abnormal troponin. Patient had intermittent bouts of atrial fibrillation but mostly maintaining sinus rhythm. His echocardiogram showed moderate to severe aortic stenosis, moderate to severe mitral regurgitation and tricuspid regurgitation. Patient seemed to be comfortable. His edema has come down. I'm going to switch from IV Lasix to by mouth Lasix. Continue to monitor for arrhythmias. Increase activity as tolerated. May consider discharge within next 24-48 hours. Follow-up with his own primary laser/electro optics technician Objective - Vital Signs Vital signs: Vital Signs Temp 97.9 F 02/06/21 08:00 Pulse 76 02/06/21 16:19 Resp 18 02/06/21 12:00 BP 128/65 02/06/21 12:00 Pulse Ox 94 L 02/06/21 12:00 Intake & Output 02/05/21 02/06/21 02/06/21 18:59 06:59 18:59 Intake Total 146 670 6585 Output Total 1100 Balance -284 094 5783 Weight 72.5 kg Intake: Oral 979 065 9100 Output: Urine 1100 Other: Voiding Method External Catheter External Catheter External Catheter # Voids 3 - Exam GENERAL EXAM: Patient is alert and oriented and doesn't appear to be in any acute distress HEENT: Normocephalic. Normal reaction of pupils, equal size, normal range of extraocular motion. No erythema or exudates in the throat. NECK: No masses, no nuchal rigidity. CHEST: No chest wall deformity. LUNGS: Diminished breath sounds HEART: S1 and S2 normal with no audible mumurs or gallops. Regular rhythm, femorals equal on both sides.. ABDOMEN: No hepatosplenomegaly, normal bowel sounds, no guarding or rigidity. SKIN: No rashes CENTRAL NERVOUS SYSTEM: No focal deficits. EXTREMITIES: Resolving edema - Labs CBC & Chem 7: 02/06/21 07:52 02/06/21 07:52 Labs: Abnormal Lab Results - Last 24 Hours (Table) 02/06/21 02/06/21 Range/Units 07:52 07:52 RBC 2.80 L (4.30-5.90) m/uL Hgb 9.1 L (13.0-17.5) gm/dL Hct 27.4 L (39.0-53.0) % Lymphocytes # 0.8 L (1.0-4.8) k/uL Carbon Dioxide 34 H (22-30) mmol/L BUN 39 H (9-20) mg/dL Calcium 8.1 L (8.4-10.2) mg/dL Total Protein 6.0 L (6.3-8.2) g/dL Albumin 3.1 L (3.5-5.0) g/dL Assessment and Plan (1) Aortic stenosis Current Visit: Yes Status: Acute Code(s): I35.0 - NONRHEUMATIC AORTIC (VALVE) STENOSIS SNOMED Code(s): 05012602 (2) Elevated troponin Current Visit: Yes Status: Acute Code(s): R77.8 - OTHER SPECIFIED ABNORMALITIES OF PLASMA PROTEINS SNOMED Code(s): 911649796 (3) Heart failure Current Visit: Yes Status: Acute Code(s): I50.9 - HEART FAILURE, UNSPECIFIED SNOMED Code(s): 00074467 (4) CAD (coronary artery disease) Current Visit: No Status: Acute Code(s): I25.10 - ATHSCL HEART DISEASE OF [place] CORONARY ARTERY W/O ANG PCTRS SNOMED Code(s): 45259110 (5) Paroxysmal atrial fibrillation Current Visit: No Status: Acute Code(s): I48.0 - PAROXYSMAL ATRIAL FIBRILLATION SNOMED Code(s): 589612966 (6) Mitral regurgitation Current Visit: Yes Status: Acute Code(s): I34.0 - NONRHEUMATIC MITRAL (VALVE) INSUFFICIENCY SNOMED Code(s): 31453524 Plan: Patient seemed to be clinically stable. Vital signs are stable. Edema has cleared. We'll switch to by mouth diuretics. Increase activity as tolerated
[2021-02-06] MEDS: PRAVASTATIN SODIUM 80 MG TAB PO SCH (21:39)
[2021-02-06] MEDS: DONEPEZIL 5 MG TAB PO SCH (21:39)
[2021-02-07] MEDS: LATANOPROST 0.005% OPHTH DROPS 2.5 ML BTL BOTH EYES SCH ×2 (06:06→20:05)
[2021-02-07] MEDS: carvediloL 6.25 MG TAB PO SCH ×2 (06:51→17:03)
[2021-02-07] MEDS: FLUTICASONE 110 MCG INHALER INHALATION SCH ×2 (07:50→20:38)
[2021-02-07] MEDS: IPRATROPIUM 0.5 MG/2.5 ML NEBU INHALATION SCH ×4 (07:50→20:38)
[2021-02-07 08:11] LABS: Basophils % (A) 0 %; Eosinophils % (A) 14 %; HCT 27.8 % (39.0-53.0); HGB 9.2 gm/dL (13.0-17.5); Hypochromasia Moderate; Lymphocytes # (A) 0.9 k/uL (1.0-4.8); Lymphocytes % (A) 13 %; MCH 32.6 pg (25.0-35.0); MCHC 33.2 g/dL (31.0-37.0); MCV 98.4 fL (80.0-100.0); Mean Platelet Volume 7.3; Monocytes # (A) 0.4 k/uL (0-1.0); Monocytes % (A) 6 %; Neutrophils # (A) 4.6 k/uL (1.3-7.7); Neutrophils % (A) 66 %; Platelet Count 313 k/uL (150-450); RBC 2.83 m/uL (4.30-5.90); RDW 14.4 % (11.5-15.5)
[2021-02-07] MEDS: DOCUSATE 100 MG CAP PO SCH (08:20)
[2021-02-07] MEDS: amLODIPine 10 MG TAB PO SCH (08:20)
[2021-02-07] MEDS: FUROSEMIDE 40 MG TAB PO SCH ×2 (08:20→17:03)
[2021-02-07] MEDS: RIVAROXABAN 20 MG TAB PO SCH (08:20)
[2021-02-07] MEDS: SPIRONOLACTONE 25 MG TAB PO SCH (08:20)
[2021-02-07 08:21] LABS: Albumin 2.8 g/dL (3.5-5.0); Calcium 8.1 mg/dL (8.4-10.2); Total Bilirubin 0.5 mg/dL (0.2-1.3); Total Protein 5.5 g/dL (6.3-8.2)
--- NOTE | 2021-02-07 11:22 | P.PN ---
Subjective Progress Note Date: 02/07/21 Feels okay, no chest pain no abdominal pain no nausea or vomiting. No dizziness. Objective - Vital Signs Vital signs: Vital Signs Temp 98.4 F 02/07/21 07:58 Pulse 72 02/07/21 08:02 Resp 18 02/07/21 08:00 BP 150/70 02/07/21 07:58 Pulse Ox 100 02/07/21 07:58 Intake & Output 02/06/21 02/07/21 02/07/21 18:59 06:59 18:59 Intake Total 0 Output Total 450 300 Balance 2040 -450 -300 Weight 69.5 kg Intake: Oral 2039 Output: Urine 450 300 Other: Voiding Method External Catheter External Catheter Urinal # Voids 3 - Exam Gen: awake, appears confused likely at baseline. HEENT: normocephalic, atraumatic Resp: Decreased breath sounds, no wheezing CVS: good distal perfusion x 4, irregular rhythm, regular rate GI: soft, NTTP, ND, appropriate bowel sounds MSK: 1 + pitting edema, no clubbing Neuro: non-focal, moving all extremities Psych: cooperative - Labs CBC & Chem 7: 02/07/21 07:41 02/07/21 07:41 Labs: Abnormal Lab Results - Last 24 Hours (Table) 02/07/21 02/07/21 Range/Units 07:41 07:41 RBC 2.83 L (4.30-5.90) m/uL Hgb 9.2 L (13.0-17.5) gm/dL Hct 27.8 L (39.0-53.0) % Lymphocytes # 0.9 L (1.0-4.8) k/uL Eosinophils # 1.0 H (0-0.7) k/uL Carbon Dioxide 34 H (22-30) mmol/L BUN 35 H (9-20) mg/dL Calcium 8.1 L (8.4-10.2) mg/dL Total Protein 5.5 L (6.3-8.2) g/dL Albumin 2.8 L (3.5-5.0) g/dL Assessment and Plan Plan: Acute on chronic congestive heart failure exacerbation, diastolic Severe mitral regurgitation Severe pulmonary hypertension Moderate to severe aortic stenosis recent echo showing LVEF 55-60% Continue PO lasix 40 mg BID, was started on Aldactone. Continue Coreg. cardiology eval , input appreciated. echocardiogram = EF 55-60%, moderate to severe , MR, pulmonary hypertension chronic anemia likely iron deficiency. Monitor H&H history of CAD s/p stents Supportive care P. Afib , on xarelto dementia and parkinsons Supportive care, continue outpatient medications COPD without exacerbation Oxygen and bronchodilators as indicated recent history of fall , PT/OT eval , recommending subacute rehab. CODE STATUS:full code DVT prophylaxis: on xarelto Anticipated discharge place: Needs subacute rehab. Social service consult.
--- NOTE | 2021-02-07 13:26 | P.PN ---
Subjective This is a pleasant 85 -year-old male past medical history significant for hypertension, dyslipidemia, coronary artery disease with prior stent placements, paroxysmal atrial fibrillation on Xarelto. He follows with a hunting sales associate at [facility]. We have been asked to see in consultation for congestive heart failure and elevated troponin. Echocardiogram revealed EF 5560 percent, LA severely dilated, mild to moderate aortic regurgitation, moderate to severe aortic stenosis with a mean gradient of 39.5 mmHg, temperature severe mitral regurgitation, moderate tricuspid regurgitation, moderate to severe pulmonary hypertension 02/06: Patient with episode of atrial fibrillation with RVR to 130s and spontaneously converted back to sinus rhythm. Lasix switched to PO. 02/07/21: Patient seen and examined at bedside, no acute distress. Telemetry reviewed patient in sinus mechanism heart rate 60 to 70s. Patient with 1.1 L urine output. Laboratory data reviewed sodium 137, potassium 4.0, serum creatinine 0.89. Currently being maintained on amlodipine 10 mg daily, aspirin 81 mg daily, carvedilol 6.25 mg twice a day, Lasix 40 mg by mouth twice a day, Xarelto 20 mg daily, spironolactone 20 mg daily. Patient does state he lives with family but does appear debilitated GENERAL: Well-appearing, well-nourished and in no acute distress. BP 134/61, heart rate 74, maintaining oxygen saturation is 97% on room air, afebrile. NECK: Supple without JVD or thyromegaly. LUNGS: Breath sounds clear to auscultation bilaterally. Respiration equal and unlabored. No wheezes, rales or rhonchi. HEART: Regular rate and rhythm Systolic murmur heard at right sternal border, and systolic mumur heard apex , rubs or gallops. S1 and S2 heard. EXTREMITIES: Normal range of motion. 1+ pitting lower extremity edema. No clubbing or cyanosis. Peripheral pulses intact. ASSESSMENT Acute on Chronic diastolic heart failure EF 55-60% Hypertension Dyslipidemia Coronary artery disease with prior stent placements Paroxysmal atrial fibrillation on Xarelto Valvular heart disease with mild to moderate aortic regurgitation, moderate to severe aortic stenosis, moderate to severe mitral regurgitation, moderate tricuspid regurgitation Moderate to severe pulmonary hypertension PLAN From cardiology perspective patient is stable to be discharged home. Close Fo llow-up with his hunting sales associate with [facility] within the next week. Patient is to be evaluated by Physical therapy and possible discharge to a subacute rehab. We will sign off at this time. Please reach out with any question or concerns. Continue PO Lasix spironolactone 20 mg daily, aspirin, amlodipine, Xarelto, statin, beta pardeep Close follow up with hunting sales associate at [facility] Nurse Practitioner note has been reviewed, I agree with a documented findings and plan of care. Patient was seen and examined. Objective - Vital Signs Vital signs: Vital Signs Temp 98.4 F 02/07/21 07:58 Pulse 72 02/07/21 08:02 Resp 18 02/07/21 07:58 BP 150/70 02/07/21 07:58 Pulse Ox 100 02/07/21 07:58 Intake & Output 02/06/21 02/07/21 02/07/21 18:59 06:59 18:59 Intake Total 2040 Output Total 450 Balance 2040 -450 Weight 69.5 kg Intake: Oral 2040 Output: Urine 450 Other: Voiding Method External Catheter External Catheter # Voids 3 - Labs CBC & Chem 7: 02/07/21 07:41 02/07/21 07:41 Labs: Abnormal Lab Results - Last 24 Hours (Table) 02/06/21 02/06/21 02/07/21 Range/Units 07:52 07:52 07:41 RBC 2.80 L 2.83 L (4.30-5.90) m/uL Hgb 9.1 L 9.2 L (13.0-17.5) gm/dL Hct 27.4 L 27.8 L (39.0-53.0) % Lymphocytes # 0.8 L 0.9 L (1.0-4.8) k/uL Eosinophils # 1.0 H (0-0.7) k/uL Carbon Dioxide 34 H (22-30) mmol/L BUN 39 H (9-20) mg/dL Calcium 8.1 L (8.4-10.2) mg/dL Total Protein 6.0 L (6.3-8.2) g/dL Albumin 3.1 L (3.5-5.0) g/dL 02/07/21 Range/Units 07:41 RBC (4.30-5.90) m/uL Hgb (13.0-17.5) gm/dL Hct (39.0-53.0) % Lymphocytes # (1.0-4.8) k/uL Eosinophils # (0-0.7) k/uL Carbon Dioxide 34 H (22-30) mmol/L BUN 35 H (9-20) mg/dL Calcium 8.1 L (8.4-10.2) mg/dL Total Protein 5.5 L (6.3-8.2) g/dL Albumin 2.8 L (3.5-5.0) g/dL
[2021-02-07] MEDS: ASPIRIN 81 MG PO SCH (17:03)
[2021-02-07] MEDS: DONEPEZIL 5 MG TAB PO SCH (20:05)
[2021-02-07] MEDS: PRAVASTATIN SODIUM 80 MG TAB PO SCH (20:05)
[2021-02-08] MEDS: carvediloL 6.25 MG TAB PO SCH (06:24)
[2021-02-08] MEDS: IPRATROPIUM 0.5 MG/2.5 ML NEBU INHALATION SCH ×2 (07:39→12:38)
[2021-02-08] MEDS: FLUTICASONE 110 MCG INHALER INHALATION SCH (07:39)
[2021-02-08 07:42] VITALS: RESP 16
[2021-02-08 08:02] LABS: Basophils % (A) 1 %; Eosinophils % (A) 15 %; HCT 28.2 % (39.0-53.0); HGB 9.4 gm/dL (13.0-17.5); Hypochromasia Slight; Lymphocytes # (A) 1.2 k/uL (1.0-4.8); Lymphocytes % (A) 18 %; MCH 32.5 pg (25.0-35.0); MCHC 33.3 g/dL (31.0-37.0); MCV 97.5 fL (80.0-100.0); Mean Platelet Volume 7.8; Monocytes # (A) 0.4 k/uL (0-1.0); Monocytes % (A) 6 %; Neutrophils # (A) 4.1 k/uL (1.3-7.7); Neutrophils % (A) 60 %; Platelet Count 318 k/uL (150-450); RDW 14.4 % (11.5-15.5); WBC 6.9 k/uL (3.8-10.6)
[2021-02-08 08:24] LABS: Calcium 8.3 mg/dL (8.4-10.2); Potassium 4.3 mmol/L (3.5-5.1); Total Bilirubin 0.5 mg/dL (0.2-1.3); Total Protein 5.8 g/dL (6.3-8.2)
[2021-02-08 08:39] VITALS: TEMP 98.3
--- NOTE | 2021-02-08 10:11 | P.PN ---
Subjective Progress Note Date: 02/08/21 Feels okay, no chest pain no abdominal pain no nausea or vomiting. No dizziness. No major changes. Objective - Vital Signs Vital signs: Vital Signs Temp 98.3 F 02/08/21 08:00 Pulse 74 02/08/21 08:00 Resp 16 02/08/21 08:00 BP 115/59 02/08/21 08:00 Pulse Ox 95 02/08/21 08:00 Intake & Output 02/07/21 02/08/21 02/08/21 18:59 06:59 18:59 Intake Total 480 240 240 Output Total 300 300 Balance 180 -60 240 Weight 67.5 kg Intake: Oral 480 240 240 Output: Urine 300 300 Other: Voiding Method Urinal Urinal # Voids 1 1 - Exam Gen: awake, appears confused likely at baseline. HEENT: normocephalic, atraumatic Resp: Decreased breath sounds, no wheezing CVS: good distal perfusion x 4, irregular rhythm, regular rate GI: soft, NTTP, ND, appropriate bowel sounds MSK: no pitting edema, no clubbing Neuro: non-focal, moving all extremities Psych: cooperative not in distress - Labs CBC & Chem 7: 02/08/21 06:35 02/08/21 06:35 Labs: Abnormal Lab Results - Last 24 Hours (Table) 02/08/21 02/08/21 Range/Units 06:35 06:35 RBC 2.90 L (4.30-5.90) m/uL Hgb 9.4 L (13.0-17.5) gm/dL Hct 28.2 L (39.0-53.0) % Eosinophils # 1.0 H (0-0.7) k/uL Carbon Dioxide 32 H (22-30) mmol/L BUN 28 H (9-20) mg/dL Calcium 8.3 L (8.4-10.2) mg/dL Total Protein 5.8 L (6.3-8.2) g/dL Albumin 3.0 L (3.5-5.0) g/dL Assessment and Plan Plan: Acute on chronic congestive heart failure exacerbation, diastolic Severe mitral regurgitation Severe pulmonary hypertension Moderate to severe aortic stenosis recent echo showing LVEF 55-60% Continue PO lasix 40 mg BID, was started on Aldactone. Continue Coreg. cardiology eval , input appreciated. echocardiogram = EF 55-60%, moderate to severe , MR, pulmonary hypertension Appreciate cardiology input chronic anemia likely iron deficiency. Monitor H&H history of CAD s/p stents Supportive care P. Afib , on xarelto dementia and parkinsons Supportive care, continue outpatient medications COPD without exacerbation Oxygen and bronchodilators as indicated recent history of fall , PT/OT eval , recommending subacute rehab. CODE STATUS:full code DVT prophylaxis: on xarelto Anticipated discharge place: Pending rehab Treatment plan discussed with the patient's son over on 02/07/2021 and they are agreeable and rehab.
[2021-02-08] MEDS: SPIRONOLACTONE 25 MG TAB PO SCH (10:39)
[2021-02-08] MEDS: FUROSEMIDE 40 MG TAB PO SCH (10:40)
[2021-02-08] MEDS: RIVAROXABAN 20 MG TAB PO SCH (10:40)
[2021-02-08] MEDS: DOCUSATE 100 MG CAP PO SCH (10:40)
[2021-02-08] MEDS: BRIMONIDINE TARTRATE 0.2% DROPS 5 ML BTL BOTH EYES SCH (10:40)
[2021-02-08] MEDS: amLODIPine 10 MG TAB PO SCH (10:40)
--- NOTE | 2021-02-08 11:06 | P.DS ---
Providers Date of admission: 02/03/21 20:18 Expected date of discharge: 02/08/21 Attending physician: Rhonda Davila MD Consults: 02/03/21 20:44 Consult Physician Routine Consulting Provider: Yordy Teixeira Consult Reason/Comments: heart failure Do you want consulting provider notified?: Yes Primary care physician: Mike Conde [facility] Hospital Course: HPI: 85 year old male with P. Afib on xarelto, dementia, parkinson , CAD, hypertension patient recently discharged from the hospital after presenting post fall resulting in occipital hematoma , anemia requiring 1 unit blood transfusion patient is unable to provide any meaningful history due to language Barrier. history obtained by reviewing ED chart. patient comes in with SOB of 1 week duration , he was found to have fluid overload on CT scan of the chest done due to elevated d dimer, showed no acute PE. Pro BNP >6000. elevated torps, hemoglobin improved compared to time of discharge. he is currently laying down comfortable in bed. denies any pain . Hospital course and treatment: Patient was admitted to the hospital with shortness of breath, he was found to have acute on chronic dislocation of heart failure, he was treated with IV diuretics and Lasix. Aldactone was added. Patient was evaluated by cardiology. Volume status continues to improve. By the time of discharge he feels better. He was evaluated by physical therapy/occupational therapy who recommended rehab. Patient will be discharged to rehab. Coreg was increased, Aldactone was added and Lasix was adjusted. Patient Condition at Discharge: Stable Plan - Discharge Summary New Discharge Prescriptions: New carvediloL [Coreg] 6.25 mg PO BID-W/MEALS 30 Days #60 tab Spironolactone [Aldactone] 25 mg PO DAILY 30 Days #30 tab Furosemide [Lasix] 40 mg PO DAILY 30 Days #30 tab Continue Tiotropium 18 Mcg/Puff [Spiriva] 1 cap INHALATION RT-DAILY Budesonide [Pulmicort Flexhaler] 1 puff INHALATION RT-BID Rivaroxaban [Xarelto] 20 mg PO DAILY Pravastatin Sodium [Pravachol] 80 mg PO HS Vitamin E 400 unit PO DAILY@1700 Ergocalciferol (Vitamin D2) [Vitamin D2 (2000 Iu)] 50 mcg PO DAILY@1700 Brimonidine Tartrate [Alphagan P 0.2% [facility] Soln] 1 drop BOTH EYES DAILY Latanoprost [Xalatan 0.005%] 1 drop BOTH EYES HS Polyethylene Glycol 3350 [Miralax] 17 gm PO DAILY PRN PRN Reason: Constipation Docusate [Colace] 100 mg PO DAILY Folic Acid 1 mg PO DAILY@1200 tab Acetaminophen Tab [Tylenol] 650 mg PO Q6HR PRN tab PRN Reason: Mild Pain Or Fever > 100.5 Aspirin 81 mg PO DAILY@1700 amLODIPine [Norvasc] 10 mg PO DAILY 30 Days #30 tablet Multivitamins, Thera [Multivitamin (formulary)] 1 tab PO DAILY@1200 Donepezil [Aricept] 5 mg PO HS 30 Days #30 tab Discontinued carvediloL [Coreg] 3.125 mg PO BID@0900,1700 30 Days #60 tab Discharge Medication List Budesonide [Pulmicort Flexhaler] 1 puff INHALATION RT-BID 11/14/17 [History] Pravastatin Sodium [Pravachol] 80 mg PO HS 11/14/17 [History] Rivaroxaban [Xarelto] 20 mg PO DAILY 11/14/17 [History] Tiotropium 18 Mcg/Puff [Spiriva] 1 cap INHALATION RT-DAILY 11/14/17 [History] Brimonidine Tartrate [Alphagan P 0.2% [facility]] 1 drop BOTH EYES DAILY 11/15/20 [History] Docusate [Colace] 100 mg PO DAILY 11/15/20 [History] Ergocalciferol (Vitamin D2) [Vitamin D2 (2000 Iu)] 50 mcg PO DAILY@1700 11/15/20 [History] Latanoprost [Xalatan 0.005%] 1 drop BOTH EYES HS 11/15/20 [History] Polyethylene Glycol 3350 [Miralax] 17 gm PO DAILY PRN 11/15/20 [History] Vitamin E 400 unit PO DAILY@1700 11/15/20 [History] Acetaminophen Tab [Tylenol] 650 mg PO Q6HR PRN tab 11/23/20 [Rx] Folic Acid 1 mg PO DAILY@1200 tab 11/23/20 [Rx] Aspirin 81 mg PO DAILY@1700 01/23/21 [History] Multivitamins, Thera [Multivitamin (formulary)] 1 tab PO DAILY@1200 01/23/21 [History] Donepezil [Aricept] 5 mg PO HS 30 Days #30 tab 01/28/21 [Rx] amLODIPine [Norvasc] 10 mg PO DAILY 30 Days #30 tablet 01/28/21 [Rx] Furosemide [Lasix] 40 mg PO DAILY 30 Days #30 tab 02/08/21 [Rx] Spironolactone [Aldactone] 25 mg PO DAILY 30 Days #30 tab 02/08/21 [Rx] carvediloL [Coreg] 6.25 mg PO BID-W/MEALS 30 Days #60 tab 02/08/21 [Rx] Follow up Appointment(s)/Referral(s): Mike Conde MD [Primary Care Provider] - 1-2 days Discharge Disposition: TRANSFER TO SNF/ECF
[2021-02-08 12:58] VITALS: BP 115/59; PULSE 74
== END 2021-02-08 13:48 | disposition home or self-care (01) ==
LOC: EC 16:22 → INTOOBSV 20:18 → 3SCARD 20:18 → UNDODISIN 02-08 13:48
PROVIDERS: ADMIT Internal Medicine; ATTEND Internal Medicine
DX: I50.33 Acute on chronic diastolic (congestive) heart failure (principal); I10 Essential (primary) hypertension; I27.20 Pulmonary hypertension, unspecified; F02.80 Dementia in other diseases classified elsewhere, unspecified severity, without behavioral disturbance, psychotic disturbance, mood disturbance, and anxiety; G20 Parkinson's disease; I48.0 Paroxysmal atrial fibrillation; J44.9 Chronic obstructive pulmonary disease, unspecified; Z20.822 Contact with and (suspected) exposure to COVID-19; I25.10 Atherosclerotic heart disease of native coronary artery without angina pectoris; I08.3 Combined rheumatic disorders of mitral, aortic and tricuspid valves; E78.5 Hyperlipidemia, unspecified; D64.9 Anemia, unspecified; M25.562 Pain in left knee; Z91.81 History of falling; Z79.82 Long term (current) use of aspirin; Z79.01 Long term (current) use of anticoagulants; Z79.51 Long term (current) use of inhaled steroids; Z79.899 Other long term (current) drug therapy; Z95.5 Presence of coronary angioplasty implant and graft; Z82.49 Family history of ischemic heart disease and other diseases of the circulatory system; Z83.1 Family history of other infectious and parasitic diseases
CPT/HCPCS: 96376 ×3; 96374; 96375; 99285; 36415; 94640 ×10; 94760 ×2; 93005; 93306; 97530 ×6; 97162; 97166; 85379; 83880; 80053 ×4; 80048; 83605; 83735; 84484; 85025 ×4; 85610; 85730; 87635; 87636; 71046; 71275; G0378 ×6; J1940 ×4; J2930; Q9967

== ENCOUNTER 2021-07-29 15:43 | Emergency (ER) | payer MEDICARE ==
[2021-07-29 16:29] VITALS: BP 124/73; PULSE 62; RESP 18
[2021-07-29] MEDS ORDERED: SODIUM CHLORIDE 0.9% 1,000 ML IV ONE (16:54)
--- NOTE | 2021-07-29 16:54 | ED ---
General Adult HPI - General Chief complaint: Nausea/Vomiting/Diarrhea Stated complaint: Not eating or drinking/bed sores Time Seen by Provider: 07/29/21 16:35 Source: patient Mode of arrival: ambulatory Limitations: no limitations - History of Present Illness Initial comments: Patient is an 85-year-old male with advanced dementia, he is cared for in the home by his nephew. The patient's son is a traveling nurse. He returned home from [place] today and noted that his father has had a significantly declining functionality. The patient is now contracted in a position, he has developed a sacral decubitus ulcer. He is no longer eating or drinking. He occasionally moans or moves his eyelids the pain or loud voice but is otherwise minimally to non-responsive. Patient's son states he knows the is inevitable and coming soon he was just worried that the patient may be in pain or have infection due to sacral decubitus ulcer. Was also concerned the patient may be dehydrated due to lack of by mouth intake. He states that he would like to meet with hospice but wouldn't mind having an IV placed and have IV fluid given to give them a little bit more time with his dad. - Related Data Home Medications Medication Instructions Recorded Confirmed Budesonide [Pulmicort Flexhaler] 1 puff INHALATION RT-BID 11/14/17 02/03/21 Pravastatin Sodium [Pravachol] 80 mg PO HS 11/14/17 02/03/21 Rivaroxaban [Xarelto] 20 mg PO DAILY 11/14/17 02/03/21 Tiotropium 18 Mcg/Puff [Spiriva] 1 cap INHALATION RT-DAILY 11/14/17 02/03/21 Brimonidine Tartrate [Alphagan P 1 drop BOTH EYES DAILY 11/15/20 02/03/21 0.2% Ophth Soln] Docusate [Colace] 100 mg PO DAILY 11/15/20 02/03/21 Ergocalciferol (Vitamin D2) 50 mcg PO DAILY@1700 11/15/20 02/03/21 [Vitamin D2 (2000 Iu)] Latanoprost [Xalatan 0.005%] 1 drop BOTH EYES HS 11/15/20 02/03/21 Polyethylene Glycol 3350 [Miralax] 17 gm PO DAILY PRN 11/15/20 02/03/21 Vitamin E 400 unit PO DAILY@1700 11/15/20 02/03/21 Aspirin 81 mg PO DAILY@1700 01/23/21 02/03/21 Multivitamins, Thera [Multivitamin 1 tab PO DAILY@1200 01/23/21 02/03/21 (formulary)] Previous Rx's Medication Instructions Recorded Acetaminophen Tab [Tylenol] 650 mg PO Q6HR PRN tab 11/23/20 Folic Acid 1 mg PO DAILY@1200 tab 11/23/20 Donepezil [Aricept] 5 mg PO HS 30 Days #30 tab 01/28/21 amLODIPine [Norvasc] 10 mg PO DAILY 30 Days #30 tablet 01/28/21 Furosemide [Lasix] 40 mg PO DAILY 30 Days #30 tab 02/08/21 Spironolactone [Aldactone] 25 mg PO DAILY 30 Days #30 tab 02/08/21 carvediloL [Coreg] 6.25 mg PO BID-W/MEALS 30 Days #60 02/08/21 tab Allergies Allergy/AdvReac Type Severity Reaction Status Date / Time No Known Allergies Allergy Verified 07/29/21 16:19 Review of Systems ROS Statement: Those systems with pertinent positive or pertinent negative responses have been documented in the HPI. ROS Other: All systems not noted in ROS Statement are negative. Past Medical History Past Medical History: Atrial Fibrillation, Hyperlipidemia, Hypertension History of Any Multi-Drug Resistant Organisms: None Reported Past Surgical History: Heart Catheterization With Stent Additional Past Surgical History / Comment(s): nasal surgery as a young adult, per son Past Anesthesia/Blood Transfusion Reactions: No Reported Reaction Date of Last Stent Placement:: 2014 Past Psychological History: No Psychological Hx Reported Smoking Status: Never smoker Past Alcohol Use History: Rare Past Drug Use History: None Reported - Past Family History Father History Unknown: Yes Additional Family Medical History / Comment(s): of TB Mother Family Medical History: Myocardial Infarction ([place]) Brother(s) Additional Family Medical History / Comment(s): heart problems General Exam - General Exam Comments Initial Comments: Physical Exam GENERAL: Debilitated elderly male, in position laying on his left side HENT: Normocephalic, Atraumatic. Temporal wasting is noted EYES: Eyes remained closed during exam PULMONARY: Unlabored respirations. No audible rales rhonchi or wheezing was noted. CARDIOVASCULAR: RRR ABDOMEN: No apparent tenderness, SKIN: Skin is dry, skin tenting is noted on the extremities Stage III sacral decubitus ulcer with a black eschar is noted, no purulent drainage, no surrounding erythema : Condom cath in place NEUROLOGIC: Patient may flutter his eyelids or moan a little bit when moved, no other meaningful responses MUSCULOSKELETAL: Generalized atrophy with contractures of all extremities, in a position PSYCHIATRIC: Unable to assess Limitations: no limitations Course Vital Signs 07/29/21 16:19 Pulse Rate 62 Respiratory 18 Rate Blood Pressure 124/73 O2 Sat by Pulse 87 L Oximetry Medical Decision Making - Medical Decision Making The patient was seen and evaluated history is obtained from the son and nephew at bedside, this is an 85-year-old woman with very advanced dementia who has very clearly entered the active stages of dying. He is no longer eating drinking or responding. Family somewhat panicked because he has not yet enrolled in hospice so they brought him to the emergency department. Initially the son wanted blood work done and IV fluids given however after couple of unsuccessful attempts at IV placement due to patient's dehydration and contractures son decided that he would prefer not to pursue labs or IV fluids. Social work was able to contact [facility] hosp[facility] who will meet the family in the home tonight to set up further care. Patient does have a hospital bed, he does have condom caths. Family is taking very good care of him. At this time he will be given a Mepilex dressing for the sacral decubitus ulcer for comfort. Discharged home in his family's care. Disposition Clinical Impression: Advanced dementia Disposition: HOME SELF-CARE Condition: Critical Additional Instructions: Follow with [facility] as planned Is patient prescribed a controlled substance at d/c from ED?: No Referrals: Mike Conde MD [REFERRING] - 1-2 days [facility], [NON-STAFF] - ([phone] [facility])
== END 2021-07-29 19:24 | disposition home or self-care (01) ==
LOC: EC 15:43
DX: F03.90 Unspecified dementia, unspecified severity, without behavioral disturbance, psychotic disturbance, mood disturbance, and anxiety (principal); L89.159 Pressure ulcer of sacral region, unspecified stage; I10 Essential (primary) hypertension; E78.5 Hyperlipidemia, unspecified; I48.91 Unspecified atrial fibrillation; Z79.82 Long term (current) use of aspirin
CPT/HCPCS: 99283